=== PATIENT | female | born 1975 | race Caucasian/White ===

== ENCOUNTER → 2016-05-13 | Outpatient (REF) | payer OTHER | LOC: M LAB REF 09:58 | PROVIDERS: ATTEND Physician Assistant Medical | DX: J02.9 Acute pharyngitis, unspecified (principal) ==

== ENCOUNTER → 2016-07-10 | Outpatient (REF) | payer OTHER | LOC: M LAB REF 16:28 | PROVIDERS: ATTEND Family Medicine | DX: R79.89 Other specified abnormal findings of blood chemistry (principal) ==

== ENCOUNTER → 2016-12-04 | Outpatient (CLI) | payer OTHER ==
[2016-12-04 09:59] LABS: BASO # 0.1 K/mm3 (0.0-0.2); BASO % 0.8 % (0.0-1.0); EOS # 0.2 K/mm3 (0.0-0.50); EOS % 2.9 % (0.0-3.0); LARGE UNSTAINED CELL # 0.1 K/mm3 (0.0-0.4); LARGE UNSTAINED CELL % 1.6 % (0.0-4.0); LYMPH # 2.6 K/mm3 (1.5-4.5); MEAN CORPUSCULAR HEMOGLOBIN 29.8 pg (27.0-33.0); MEAN CORPUSCULAR HGB CONC 34.8 g/dl (32.0-36.5); MEAN CORPUSCULAR VOLUME 85.5 fl (80.0-96.0); MONO # 0.4 K/mm3 (0.0-0.8); MONO % 5.1 % (0.0-5.0); NEUTROPHILS # 5.2 K/mm3 (1.8-7.7); NEUTROPHILS % 59.6 % (36.0-66.0); PLATELET COUNT, AUTOMATED 227 k/mm3 (150-450); RED CELL DISTRIBUTION WIDTH 13.6 % (11.5-14.5); WHITE BLOOD COUNT 8.6 K/mm3 (4.0-10.0)
[2016-12-04 10:27] LABS: ALBUMIN 3.3 GM/DL (3.2-5.2); ALKALINE PHOSPHATASE 71 U/L (45-117); ALT/SGPT 48 U/L (12-78); AST/SGOT 40 U/L (15-37); BILIRUBIN,DIRECT 0.2 MG/DL (0.0-0.2); BILIRUBIN,TOTAL 0.4 MG/DL (0.2-1.0); FERRITIN 33 NG/ML (8-252); GAMMA GLUTAMYLTRANSPEPTIDASE 76 U/L (5-55); TOTAL IRON BINDING CAPACITY 454 UG/DL (250-450); TOTAL PROTEIN 7.4 GM/DL (6.4-8.2)
[2016-12-04 10:48] LABS: HEPATITIS B SURFACE ANTIBODY NEGATIVE (POSITIVE)
--- NOTE | 2016-12-04 10:56 | REP ---
RIGHT UPPER QUADRANT ULTRASOUND: Real-time sonographic evaluation of the right upper quadrant performed. The gallbladder appears somewhat contracted. No gall stones are seen. There is no gallbladder wall thickening or pericholecystic fluid. There is no intrahepatic or extrahepatic biliary dilatation, common bile duct measuring 4 mm in diameter. There appears to be somewhat increased heterogeneous echotexture suggesting some degree of fibrofatty infiltration. No definite liver or pancreatic mass is seen. The pancreas is not optimally seen due to overlying bowel gas. Right kidney demonstrates no hydronephrosis with normal size at 11.1 cm in length. IMPRESSION: No gallstones or biliary dilatation. No free fluid. There appears to be some degree of fibrofatty infiltration of the liver. Signed by Pio Shepard MD 12/04/2016 11:57 A
== END ==
LOC: M RAD 09:13 → M LAB 09:13
PROVIDERS: ATTEND Internal Medicine Gastroenterology
DX: R94.5 Abnormal results of liver function studies (principal)

== ENCOUNTER → 2017-01-06 | Outpatient (REF) | payer OTHER | LOC: M LAB REF 10:59 | PROVIDERS: ATTEND Physician Assistant Medical | DX: J02.9 Acute pharyngitis, unspecified (principal) ==

== ENCOUNTER → 2017-04-08 | Outpatient (REF) | payer OTHER | LOC: M SFHCWAGY 14:30 | DX: Z12.4 Encounter for screening for malignant neoplasm of cervix (principal) ==

== ENCOUNTER → 2017-04-27 | Outpatient (CLI) | payer OTHER | LOC: M WHC 15:51 | DX: Z12.31 Encounter for screening mammogram for malignant neoplasm of breast (principal) | CPT/HCPCS: 77067 ==

== ENCOUNTER 2017-09-20 10:33 | Day surgery (SDC) | payer OTHER ==
[2017-09-20] MEDS ORDERED: PROPOFOL 200 MG/20 ML VIAL As Ordered ×2 (10:34→11:28)
[2017-09-20] MEDS ORDERED: fentaNYL 100 MCG/2 ML INJECTION (J3010) As Ordered (10:34)
[2017-09-20] MEDS ORDERED: LIDOCAINE 2% INJ 100 MG/5 ML SYRINGE As Ordered (10:34)
[2017-09-20] MEDS ORDERED: NS 1,000 ML IV (11:00)
[2017-09-20] MEDS ORDERED: PHENYLephrine HCL 500 MCG/5 ML (100MCG/ML) SYRINGE (J2370) As Ordered (11:26)
== END 2017-09-20 12:25 | disposition home or self-care (01) ==
LOC: M OPP 10:33
DX: K92.1 Melena (principal); D12.3 Benign neoplasm of transverse colon; K62.1 Rectal polyp; D50.9 Iron deficiency anemia, unspecified; K57.30 Diverticulosis of large intestine without perforation or abscess without bleeding; K29.70 Gastritis, unspecified, without bleeding; I10 Essential (primary) hypertension; F17.210 Nicotine dependence, cigarettes, uncomplicated; Z79.899 Other long term (current) drug therapy; Z91.040 Latex allergy status; Z88.8 Allergy status to other drugs, medicaments and biological substances; Z80.3 Family history of malignant neoplasm of breast; Z80.0 Family history of malignant neoplasm of digestive organs; Z85.841 Personal history of malignant neoplasm of brain; Z80.8 Family history of malignant neoplasm of other organs or systems
CPT/HCPCS: 45385

== ENCOUNTER → 2018-06-04 | Outpatient (REF) | payer OTHER ==
[~2018-06-04] MED LIST: FLON1SPR; LEVO100T5 PO; LISI10TA4 PO; PRIL20TA2 PO; VENTAER INH; ZYRT10CA5 PO; mucinex PO
== END ==
LOC: M LAB REF 11:42
PROVIDERS: ATTEND Physician Assistant Medical
DX: J02.9 Acute pharyngitis, unspecified (principal)

== ENCOUNTER → 2018-10-11 | Outpatient (REF) | payer OTHER | LOC: M SFHCWAGY 16:17 | PROVIDERS: ATTEND Nurse Practitioner Family | DX: Z12.4 Encounter for screening for malignant neoplasm of cervix (principal) ==

== ENCOUNTER → 2018-10-11 | Outpatient (CLI) | payer OTHER ==
--- NOTE | 2018-10-11 16:23 | REPMRS ---
Patient History The patient states she had a clinical breast exam in 10/2018. Patient is nulliparous. Family history of colorectal cancer at age 50 or over in mother, colorectal cancer at age 50 or over in paternal aunt, colorectal cancer at age 50 or over in paternal grandfather, breast cancer at age 50 or over in paternal grandmother. 3D TOMOSYNTHESIS WAS PERFORMED. [facility] lifetime risk for breast cancer is 17.9%. Digital Woman Screen Mammo: October 11, 2018 - Exam #: [id number] Bilateral CC and MLO view(s) were taken. Technologist: Gwen Stearns, Technologist Prior study comparison: April 27, 2017, digital woman screen mammo performed at [facility]. February 13, 2016, digital woman screen mammo performed at [facility]. FINDINGS: There are scattered fibroglandular densities. There has been no change in the appearance of the mammogram from the prior studies. There is a mild amount of residual fibroglandular tissue which is fairly symmetric. There is no interval development of dominant mass, architectural distortion, or clustered microcalcification suggestive of malignancy. Assessment: BI-RADS/ACR category 1 mammogram. Negative Mammogram. Recommendation Routine screening mammogram in 1 year (for women over age 40). This mammogram was interpreted with the aid of an FDA-approved computer-aided dectection system. Electronically Signed By: Pio Shepard MD 10/11/18 1089
== END ==
LOC: M WHC 15:00
PROVIDERS: ATTEND Nurse Practitioner Family
DX: Z12.31 Encounter for screening mammogram for malignant neoplasm of breast (principal); Z80.0 Family history of malignant neoplasm of digestive organs

== ENCOUNTER → 2018-11-28 | Outpatient (CLI) | payer OTHER ==
--- NOTE | 2018-11-28 15:45 | REP ---
REASON: Dyspnea. COMPARISON: 09/09/2012 the latest prior. FINDINGS: The superior mediastinal structures are midline. The cardiac silhouette is unremarkable in size, shape, and position. The diaphragmatic surfaces of the lungs are regular, and the costophrenic angles are clear. The pulmonary loaiza are clear. The imaged osseous structures are intact. IMPRESSION: There is no acute cardiopulmonary disease. No significant change from the prior exam. Electronically Signed by Jose Manuel Gomez DO 11/28/2018 04:48 P
== END ==
LOC: M SMT 13:53
PROVIDERS: ATTEND Physician Assistant
DX: R06.00 Dyspnea, unspecified (principal)

== ENCOUNTER → 2018-11-30 | Outpatient (CLI) | payer OTHER ==
--- NOTE | 2018-11-30 15:57 | REPVR ---
EXAM: MR Angiogram Head Without Contrast, Arteries EXAM DATE/TIME: 11/30/2018 2:53 PM CLINICAL HISTORY: 43 years old, female; Other: Tinnitis; Additional info: Pulsatile tinnitus, RT ear order ok per meagn TECHNIQUE: Imaging protocol: MR angiogram head without contrast. Exam focused on the arteries. COMPARISON: No relevant prior studies available. FINDINGS: Right internal carotid artery: Unremarkable. Intracranial segment is patent with no significant stenosis. No aneurysm. Right anterior cerebral artery: Unremarkable. No occlusion or significant stenosis. No aneurysm. Right middle cerebral artery: Unremarkable. No occlusion or significant stenosis. No aneurysm. Right posterior cerebral artery: Unremarkable. No occlusion or significant stenosis. No aneurysm. Right vertebral artery: Unremarkable. No occlusion or significant stenosis. No aneurysm. Left internal carotid artery: Unremarkable. Intracranial segment is patent with no significant stenosis. No aneurysm. Left anterior cerebral artery: Unremarkable. No occlusion or significant stenosis. No aneurysm. Left middle cerebral artery: Unremarkable. No occlusion or significant stenosis. No aneurysm. Left posterior cerebral artery: Unremarkable. No occlusion or significant stenosis. No aneurysm. Left vertebral artery: Unremarkable. No occlusion or significant stenosis. No aneurysm. Basilar artery: Unremarkable. No occlusion or significant stenosis. No aneurysm. Sinuses: Mild ethmoid frontal sinus mucosal thickening. Near-complete polypoid opacification of the right maxillary sinus. IMPRESSION: 1. No acute pathology. 2. Additional findings, as above. Electronically signed by: Dannie Curtis On 11/30/2018 15:57:05 PM
== END ==
LOC: M RAD 14:46
PROVIDERS: ATTEND Specialist
DX: H93.A1 Pulsatile tinnitus, right ear (principal)

== ENCOUNTER → 2019-02-03 | Outpatient (REF) | payer OTHER ==
[2019-02-03 13:48] LABS: ALBUMIN 2.9 GM/DL (3.2-5.2); ALT/SGPT 56 U/L (12-78); BILIRUBIN,TOTAL 0.5 MG/DL (0.2-1.0); BLOOD UREA NITROGEN 3 MG/DL (7-18); CALCIUM LEVEL 8.3 MG/DL (8.5-10.1); CARBON DIOXIDE LEVEL 30 MEQ/L (21-32); CHLORIDE LEVEL 104 MEQ/L (98-107); CHOLESTEROL LEVEL 166 MG/DL (<200); CHOLESTEROL RISK RATIO 4.611 (<5); GLOMERULAR FILTRATION RATE > 60.0 (>58); GLUCOSE, FASTING 122 MG/DL (70-100); HDL CHOLESTEROL 36 MG/DL (>40); LDH LACTATE DEHYDROGENASE 205 U/L (84-246); LDL CHOLESTEROL 107 MG/DL (<100); NON-HDL-C 130 MG/DL; POTASSIUM SERUM 3.3 MEQ/L (3.5-5.1); SODIUM LEVEL 141 MEQ/L (136-145); TOTAL PROTEIN 6.7 GM/DL (6.4-8.2); TRIGLYCERIDES LEVEL 115 MG/DL (<150)
[2019-02-03 13:56] LABS: HEMOGLOBIN A1c 6.7 %
== END ==
LOC: M LABDRWAD 13:02
PROVIDERS: ATTEND Family Medicine
DX: R73.01 Impaired fasting glucose (principal); E03.9 Hypothyroidism, unspecified; I10 Essential (primary) hypertension

== ENCOUNTER → 2019-04-24 | Outpatient (CLI) | payer OTHER ==
--- NOTE | 2019-04-25 02:01 | REP ---
Clinical: Sciatica. Technique: AP, lateral, coned-down views of the lumbosacral spine. Findings: Focal moderate degenerative disc osteophyte complex at the L5-S1 level includes endplate sclerosis, early marginal spurring, and disc space narrowing. Mild/moderate degenerative change also identified at the L1-2 level including endplate sclerosis, marginal spurring, and minimal disc space narrowing. No acute fracture / compression injury or subluxation. Impression: Mild degenerative disc disease at L1-2. Moderate degenerative disc disease at L5-S1. Electronically Signed by Vinicius Brown MD 04/25/2019 01:53 A
== END ==
LOC: M ADAMS 14:36
PROVIDERS: ATTEND Physician Assistant
DX: M54.31 Sciatica, right side (principal); M54.32 Sciatica, left side

== ENCOUNTER → 2019-07-17 | Outpatient (CLI) | payer OTHER | LOC: M LABSMTC 12:59 | PROVIDERS: ATTEND Family Medicine | DX: Z11.59 Encounter for screening for other viral diseases (principal); Z20.828 Contact with and (suspected) exposure to other viral communicable diseases ==

== ENCOUNTER → 2020-02-02 | Outpatient (CLI) | payer OTHER ==
[2020-02-02 19:29] LABS: FOLATE 6.2 NG/ML; FREE T4 1.42 NG/DL (0.76-1.46); FREE THYROXINE INDEX 4.1 % (1.3-4.8); RHEUMATOID FACTOR QUANT < 10.0 IU/ML (<15.0); T UPTAKE 34 % (30-39); THYROID STIMULATING HORMONE 0.954 uIU/ML (0.358-3.740); TOTAL PROTEIN 6.7 GM/DL (6.4-8.2); VITAMIN B12 LEVEL 400 PG/ML
[2020-02-05 10:41] LABS: ALBUMIN 3.28 GM/DL (3.29-5.55); ALBUMIN % 48.9 % (55.8-66.1); ALPHA-1-GLOBULIN % 5.8 % (2.9-4.9); ALPHA-1-GLOBULINS 0.39 GM/DL (0.17-0.41); ALPHA-2-GLOBULINS 0.98 GM/DL (0.42-0.99); ALPHA-2-GLOBULINS % 14.7 % (7.1-11.8); BETA-1-GLOBULINS 0.57 GM/DL (0.28-0.60); BETA-1-GLOBULINS % 8.5 % (4.7-7.2); BETA-2-GLOBULINS % 6.1 % (3.2-6.5)
[2020-02-05 10:42] LABS: BETA-2-GLOBULINS 0.41 GM/DL (0.19-0.55); GAMMA GLOBULINS 1.07 GM/DL (0.65-1.58)
[2020-02-10 04:07] LABS: ANTINUCLEAR ANTIBODIES DIRECT Negative (Negative); SJOGREN'S ANTI SS-A <0.2 AI (0.0-0.9); SJOGREN'S ANTI SS-B <0.2 AI (0.0-0.9); VITAMIN B1 LEVEL WHOLE BLOOD 97.5 nmol/L (66.5-200.0); VITAMIN B6,PYRIDOXAL PHOSPHATE 2.6 ug/L (2.0-32.8); VITAMIN E(ALPHA TOCOPHEROL) 8.7 mg/L (7.0-25.1); VITAMIN E(GAMMA TOCOPHEROL) 1.2 mg/L (0.5-5.5)
== END ==
LOC: M LABDRWAD 16:06
PROVIDERS: ATTEND Psychiatry & Neurology Neurology
DX: Z01.84 Encounter for antibody response examination (principal)

== ENCOUNTER → 2020-02-14 | Outpatient (REF) | payer OTHER | LOC: M LAB REF 16:50 | PROVIDERS: ATTEND Family Medicine | DX: E83.51 Hypocalcemia (principal) ==

== ENCOUNTER 2020-04-25 20:29 | Emergency (ER) | payer OTHER ==
[~2020-04-25] VITALS: Ht 165.1 cm; Wt 96.0 kg
[~2020-04-25 20:29] MED LIST changes: -DERM1TAB2 PO; +LISI10TA22 PO; -LISI10TA4 PO; -MAGN400C PO
[2020-04-25] MEDS ORDERED: DERM1TAB2 PO (20:39)
[2020-04-25] MEDS ORDERED: MAGN400C PO (20:39)
--- OUTSIDE RECORDS SUMMARY | 2020-04-25 20:42 | CCD | Continuity of Care Document ---
Author Author Branden RUEDA FACILITY COORDINATOR Organization Unknown Address [address] [place] [address] [place] [address] Phone [phone] Care Team Providers Care Ict Development Manager Name Role Phone Dash Dia MD AUTM [phone] [employer] AUTM [phone] Problems Description No Information Available Social History Type Date Description Comments Sex Unknown Tobacco Use Start: Unknown Patient is a current cigarette smoker, smokes every day Tobacco Use Start: Unknown Current Cigarette Smoker 5-10 Ci garettes Daily Smoking Status Reviewed: 04/24/19 Current Cigarette Sm oker 5-10 Cigarettes Daily ETOH Use Occasionally consumes alcohol Tobacco Use Start: Unknown Patient is a current smoker, smo kes every day Allergies, Adverse Reactions, Alerts Active Allergies Reaction Severity Comments Date Sulfa rash 05/12/2015 Medications Active Medications SIG Qnty Indications Ordering Provide r Date Levothyroxine Sodium 100mcg Tablet s 1 by mouth every day Unknown Lisinopril 10mg Tablets 1 by mouth every day Unknown Zyrtec Allergy 10mg Capsules 1 by mouth every day Unknown Ventolin HFA 108(90Base) mcg/Act A erosol 2 puffs four times a day Unknown [address] take one tab in the morning for next month Unknown Magnesium Unknown Immunizations Description No Information Available Vital Signs Date Vital Result Comment 04/11/2020 3:08pm BP Systolic 150 mmHg BP Diastolic 90 mmHg Heart Rate 128 /min Respiratory Rate 16 /min O2 % BldC Oximetry 98 % Body Temperature 95.3 F Weight 207.00 lb Height 65 inches 5'5" BMI (Body Mass Index) 34.4 kg/m2 Pain Level 7 04/24/2019 2:11pm BP Systolic 138 mmHg BP Diastolic 90 mmHg Heart Rate 85 /min Respiratory Rate 20 /min O2 % BldC Oximetry 99 % Body Temperature 97.8 F Weight 210.00 lb Height 65.5 inches 5'5.50" BMI (Body Mass Index) 34.4 kg/m2 Pain Level 9 Results Description No Information Available Procedures Description No Information Available Medical Devices Description No Information Available Encounters Type Date Location Provider Dx Diagnosis Office Visit 04/11/2020 4:00p Main Office Vashti Rueda NP J04. 0 Acute laryngitis Z20.828 Contact w and exposure to ot h viral communicable diseases Assessments Date Code Description Provider 04/11/2020 J04.0 Acute laryngitis Vashti banerjee NP 04/11/2020 Z20.828 Contact with and (paz spected) exposure to other viral communicable diseases Vashti Rueda NP Plan of Treatment No Information Available Functional Status Description No Information Available Mental Status Description No Information Available Referrals Description No Information Available
--- OUTSIDE RECORDS SUMMARY | 2020-04-25 20:42 | CCD | Continuity of Care Document ---
Author Author Branden LUEVANO Organization Unknown Address [address] [place] [address] Phone [phone] Care Team Providers Care Load Mixer Name Role Phone Dash Dia M.D. AUTM [phone] Problems Active Problems Provider Date Paresthesia Suzie Gonzales M.D. Onset: 01/30/2020 Essential hypertension Onset: 02/01/2015 Hyperlipidemia Onset: 02/01/2015 Malaise and fatigue Onset: 02/01/2015 Histological finding Onset: 02/01/2015 Candidiasis of mouth Onset: 02/01/2015 Overweight Onset: 01/09/2010 Dysmenorrhea Onset: Gastroesophageal reflux disease Onset: 0 Tobacco dependence syndrome Onset: Allergic rhinitis Onset: Hypothyroidism Onset: Hypertensive disorder Onset: Dysfunction of eustachian tube Onset: Asthma Onset: Social History Type Date Description Comments Sex Unknown Tobacco Use Start: Unknown Patient is a current smoker, smo kes every day Allergies, Adverse Reactions, Alerts Active Allergies Reaction Severity Comments Date Sulfa Antibiotics 01/30/2020 Sulfa rash 01/30/2020 Medications Active Medications SIG Qnty Indications Ordering Provide r Date Triamcinolone Acetonide 0.1% Cream apply twice a day as directed - do not overuse, risk of atropy. Only use on individual areas of rash. 45units Dash Dia M.D. 11/09/2019 Symbicort 160-4.5mcg/Act Aerosol 2 puff twice a day 18units Dash Dia M.D. 10/30/2019 Ra Nicotine Gum 2mg Gum use as replacement for cigarettes. 90units Dash Dia M.D. 08/08/2019 Zithromax Z-Roberto 250mg Tablets take 2 tabs by mouth today, then one tab daily for 4 days 6tabs Dash Zamora M.D. 07/18/2019 Celexa 20mg Tablets 1 by mouth every day 30tabs Kindra Balderas A.N.P. 02/23/2019 Diflucan 150mg Tablets 1 by mouth may repeat in 3 days 2tabs Dash Dia M.D. 9 Singulair 10mg Tablets take one tablet by mouth at bedtime 30tabs I10 Dash Dia M.D. 9 Anusol-HC 25mg Suppository insert one suppository rectally one daily for x3 days then as needed 12units I1 0 Dash Dia M.D. 02/23/2018 Fluticasone Propionate 50mcg/Act Suspension 2 sprays each nostril daily 16unDash Miller M.D. 08/20/[address] 1 by mouth every day 90caps Dash Dia M.D. 02/01/2015 Levothyroxine Sodium 100mcg Soluti on Rec 1 by mouth every day 90unDash Miller M.D. 015 Zyrtec Allergy 10mg Tablets 1 by mouth every day 30tabs Dash Dia M.D. 02/01/2015 Ventolin HFA 108(90Base) mcg/Act A erosol 2 puffs four times a day as needed 3units Dash Dia M.D. 02/01/2015 Nystatin-Triamcinolone 683345-2.1Unit/GM-% Cream use to affected areas (corner of mouth) twice a day. 60units Dash Dia M.D. 02/01/2015 Lisinopril 10mg Tablets 1 by mouth every day 90tabs Dash Dia M.D. 11/16/2014 Metformin HCL 500mg Tablets pt takes 1 tab by mouth once a day Suzie Gonzales M.D. Immunizations Description No Information Available Vital Signs Date Vital Result Comment 01/30/2020 9:27am Respiratory Rate 12 /min Height 65.5 inches 5'5.50" Weight 210.00 lb BMI (Body Mass Index) 34.4 kg/m2 [place] Body Weight 136 lb 11/09/2019 11:35am BP Systolic 128 mmHg BP Diastolic 80 mmHg Heart Rate 70 /min Height 65.5 inches Weight 214.00 lb BMI (Body Mass Index) 35.1 kg/m2 Results Test Acquired Date Facility Test Result H/L Range Note Laboratory test finding 02/02/[address] [facility] Erythrocyte Sedimentation Rate 45 mm/hr High 0-20 Immunotyping (Immunofixation) Serum (If 02/02/[address] [facility] It Serum Interpretation SEE COMMENT Normal 1 Its Pathologist Review REV'D BY [employer] ZALDIVAR <SEE NOTE> Normal 2 Serum Protein Electrophoresis 02/02/[address] [facility] Albumin % 48.9 % Low 55.8-66.1 Irbbs-4-Lgglawja % 5.8 % High 2.9-4.9 Ohazj-1-Vsnvchvix % 14.7 % High 7.1-11.8 Fesa-2-Oxlwnizln % 8.5 % High 4.7-7.2 Diek-8-Goifugduy % 6.1 % Normal 3.2-6.5 Gamma Globulin % 16.0 % Normal 11.1-18.8 Albumin 3.28 GM/DL Low 3.29-5.55 Ewlnn-3-Hbsznsyee 0.39 GM/DL Normal 0.17-0.41 Ieegk-4-Zsmhehmsf 0.98 GM/DL Normal 0.42-0.99 Pmvm-3-Sxkayeqmo 0.57 GM/DL Normal 0.28-0.60 Ubtj-7-Byctnaonl 0.41 GM/DL Normal 0.19-0.55 Gamma Globulins 1.07 GM/DL Normal 0.65-1.58 Total Protein 6.7 GM/DL Normal 6.4-8.2 Spep Interpretation SEE COMMENT Normal 3 Spep Pathologist Review REV'D BY [employer] ZALDIVAR <SEE NOTE> Normal 4 Thyroid Profile 02/02/[address] [facility] T Uptake 34 % Normal 30-39 Thyroxine (T4) 12.0 g/dL Normal 4.5-12.0 Free Thyroxine Index 4.1 % Normal 1.3-4.8 Thyroid Stimulating Hormone 0.954 uIU/ML Normal 0.358-3.740 FT4&TSH Panel 02/02/[address] [facility] Free T4 1.42 ng/dL Normal 0.76-1.46 Vitamin B12 & Folate 02/02/[address] [facility] Vitamin B12 Level 400 pg/mL Normal 5 Folate 6.2 NG/ML Normal 6 Laboratory test finding 02/02/[address] [facility] Rheumatoid Factor Quant < 10.0 IU/mL Normal <15.0 Vitamin E Level 02/02/[address] [facility] Vitamin E(Alpha Tocopherol) 8.7 mg/L Normal 7.0-25.1 Vitamin E(Gamma Tocopherol) 1.2 mg/L Normal 0.5-5.5 7 Laboratory test finding 02/02/[address] [facility] Vitamin B1 Level Whole Blood 97.5 nmol/L Normal 66.5-200.0 8 Vitamin B6,Pyridoxal Phosphate 2.6 ug/L Normal 2.0-32.8 9 Antinuclear Antibodies 02/02/[address] [facility] Antinuclear Antibodies Direct Negative Normal Negative 10 Sjogren's Anti SS-A <0.2 AI Normal 0.0-0.9 Sjogren's Anti SS-B <0.2 AI Normal 0.0-0.9 Complete Blood Count 11/09/2019 N2N/CCD Import WBC 9.6 x10*3/UL 4.1-10.9 RBC 5.32 x10*6/UL 4.20-6.30 Hemoglobin 12.9 g/dL 12.0-18.0 Hematocrit 39.0 % 37.0-51.0 MCV 73.3 fL Low 80.0-97.0 MCH 24.3 pg Low 26.0-32.0 MCHC 33.1 g/dL 31.0-38.0 RDW 14.9 % High 11.6-13.7 PLT 295 x10*3/UL 140-440 MPV 8.2 FL 7.8-11.0 Lymph % 29.5 % 10.0-58.5 Mid % 6.7 % 1.7-9.3 Neut % 63.8 % 37.0-92.0 Lymph # 2.8 x10*3/UL 0.6-4.1 Mid # 0.7 x10*3/UL High 0.1-0.6 Neut # 6.1 x10*3/UL 2.0-7.8 Lab Results 11/09/2019 N2N/CCD Import Hba1c 6.5 g/dL High 4.8-5.6 11 Est Avg Glucose 140 mg/dL High 60-110 Comprehensive Chem Profile 11/09/2019 N2N/CCD Impor t Glucose 154 mg/dL High 74-99 12 BUN 5 mg/dL Low 7-18 Creatinine 0.7 mg/dL 0.6-1.3 Sodium 142 mEq/L 136-145 Potassium 3.8 mEq/L 3.5-5.1 Chloride 104 mEq/L 98-107 Carbon Dioxide 31 mEq/L 21-32 Calcium 8.1 mg/dL Low 8.5-10.1 13 Alk. Phosphatase 70 mg/dL 46-116 Total Bilirubin 0.3 mg/dL 0.2-1.0 Ast (Sgot) 78 U/L High 15-37 14 Alt (SGPT) 77 U/L 12-78 Albumin 2.9 g/dL Low 3.4-5.0 15 Total Protein 7.2 g/dL 6.4-8.2 A/G Ratio 0.67 CALC Low 1.00-1.90 GFR >= 60 mL/min GFR >= 60 mL/min 16 Lipid Profile 11/09/2019 N2N/CCD Import Cholesterol 202 mg/dL High 131-200 Triglycerides 95 mg/dL 30-150 HDL Cholesterol 42 mg/dL 35-60 LDL (Calculated) 141 CALC 50-159 Microalbumin/Creatinine Urine 11/09/2019 N2N/CCD Im port Microalbumin Urine 5.9 mg/L 1.3-20.0 Urine Creatinine 50.5 mg/dL 30.0-125.0 Microalb/Creat Ratio 11.7 ug/mg 0.0-30.0 1 NO MONOCLONAL BANDS NOTED. 2 REV'D BY [employer] OTERO 3 NO M-SPIKE(S)NOTED. 4 REV'D BY [employer] OTERO 5 VITAMIN B12 NORMAL RANGE NORMAL 247 - 911 PG/ML INDETERMINATE 211 - 246 PG/ML DEFICIENT LESS THAN 211 PG/ML 6 FOLATE NORMAL RANGE NORMAL GREATER THAN 5.4 NG/ML INDETERMINATE 3.4-5.4 NG/ML DEFICIENT LESS THAN 3.4 NG/ML 7 Reference intervals for alph a and gamma-tocopherol determined from National Health and Nutrition Examination Survey, 5067-3874. Individuals with alpha-tocopherol levels less than 5.0 mg/L are considered vitamin E deficient. 8 Specimen Comment: Test(s) 07 0141-Vitamin E(Alpha Tocopherol); 211657- Specimen Comment: Vitamin E(Gamma Tocopherol); 975161-Lrubmxo B6; 599048- Specimen Comment: Vit. B1, Whole Blood Specimen Comment: was developed and its performance characteristics Specimen Comment: determined by [facility]. It has not been cleared or approved Specimen Comment: by the Food and Drug Administration. 9 Specimen Comment: Test(s) 07 0141-Vitamin E(Alpha Tocopherol); 575474- Specimen Comment: Vitamin E(Gamma Tocopherol); 440621-Pahjbzh B6; 453445- Specimen Comment: Vit. B1, Whole Blood Specimen Comment: was developed and its performance characteristics Specimen Comment: determined by [facility]. It has not been cleared or approved Specimen Comment: by the Food and Drug Administration. 10 Performed at: - [facility] [id number] Front Services Agent: Christy Hoover MD, Phone: [phone] Performed at: - [facility] [id number] Front Services Agent: Bella Roca MD, Phone: [phone] Lab Result Notes: Pre-Diabetes 5.7 - 6.4 % Diabetes = or > 6.5% 12 100-125 mg/dL PRE-DIABET ES/FASTING >126 mg/dL DIABETES/FASTING 13 NOTE: RESULT VERIFIED. 14 NOTE: RESULT VERIFIED. 15 NOTE: RESULT VERIFIED. 16 CHRONIC KIDNEY DISEASE STAGI NG PER NKF STAGE I & II GFR >= 60 NORMAL TO MILDLY DECREASED STAGE III GFR 30-59 MODERATELY DECREASED STAGE IV GFR 15-29 SEVERELY DECREASED STAGE V GFR <15 VERY LITTLE GFR LEFT ESRD GFR <15 ON SOCIAL MEDIA DIRECTOR Procedures Date Code Description Status 02/24/2020 58301 MRI Spine Lumbar W/O Contrast Co mpleted 02/24/2020 49983 MRI Spine Thoracic W/O Contrast Completed 02/24/2020 95788 MRI Spine Thoracic W/O Contrast Completed 02/24/2020 55643 MRI Spine Cervical W/O Contrast Completed 02/24/2020 27867 MRI Spine Cervical W/O Contrast Completed 02/24/2020 23425 MRI Brain W/O Contrast Completed 02/24/2020 33152 MRI Brain W/O Contrast Completed 02/14/2020 08793 Nerve Conduction 13+ Studies Com pleted 02/14/2020 46471 Needle Electromyography Complete , Five Or More Muscles Studied Completed 02/14/2020 55901 Needle Electromyography Complete , Five Or More Muscles Studied Completed 02/07/2020 25010 Artery Study Extremity Mult Leve ls Bilateral Completed 02/07/2020 82944 Artery Study Extremity Mult Leve ls Bilateral Completed 02/07/2020 29322 Artery Study Extremity Mult Leve ls Bilateral Completed 02/07/2020 93526 Artery Study Extremity Mult Leve ls Bilateral Completed 02/07/2020 70066 Needle Electromyography Complete , Five Or More Muscles Studied Completed 02/07/2020 05117 Needle Electromyography Complete , Five Or More Muscles Studied Completed 02/07/2020 35952 Nerve Conduction 13+ Studies Com pleted 02/07/2020 11571 Test Autonomic Nervous System, C ardiovagal Innervation Completed 02/07/2020 14876 Test Autonomic Nervous System, C ardiovagal Innervation Completed 02/07/2020 83292 Sympathetic Skin Responses Compl eted 02/07/2020 83813 Sympathetic Skin Responses Compl eted Medical Devices Description No Information Available Encounters Type Date Location Provider Dx Diagnosis Office Visit 01/30/2020 9:00a Main office - [place] Suzie stern M.D. R20.2 Paresthesia of skin Assessments Date Code Description Provider 02/24/2020 G37.9 Demyelinating disease of central nervous system, unspecified Qing Dilia, M.DSommer 02/24/2020 G37.9 Demyelinating disease of central nervous system, unspecified MRI 02/24/2020 R20.2 Paresthesia of skin Qing Dilia, MSommerDSommer 02/24/2020 R20.2 Paresthesia of skin MRI 02/14/2020 M79.605 Pain in left leg Suzie Gonzales M.D. 02/14/2020 M79.604 Pain in right leg Suzie davila M.D. 02/14/2020 M54.5 Low back pain Suzie Gonzales M.D. 02/14/2020 R20.2 Paresthesia of skin Suzie stern M.D. 02/07/2020 E11.40 Type 2 diabetes nora itus with diabetic neuropathy, unspecified Suzie Gonzales M.D. 02/07/2020 E11.40 Type 2 diabetes nora itus with diabetic neuropathy, unspecified Ans/VS 02/07/2020 G62.9 Polyneuropathy, unspecified Katty Gonzales M.D. 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 02/07/2020 M54.2 Cervicalgia Suzie Gonzales M.D. 02/07/2020 G56.01 Carpal tunnel syndrome, right up per limb Suzie Gonzales M.D. 02/07/2020 M79.605 Pain in left leg Suzie Gonzales M.D. 02/07/2020 M79.604 Pain in right leg Suzie davila M.D. 02/07/2020 M79.602 Pain in left arm Suize Gonzales M.D. 02/07/2020 M79.601 Pain in right arm Suzie davila M.D. 01/30/2020 R20.2 Paresthesia of skin Suzie stern M.D. Plan of Treatment Future Appointment(s):* 05/06/2020 1:30 pm - Suzie Gonzales M.D. at Main office - [place] Functional Status Description No Information Available Mental Status Description No Information Available Referrals Description No Information Available
--- OUTSIDE RECORDS SUMMARY | 2020-04-25 20:42 | CCD | Continuity of Care Document ---
Author Author Branden RUEDA SUGAR CANE PLANTER Organization Unknown Address [address] [place] [address] [place] [address] Phone [phone] Care Team Providers Care Conveyancer Name Role Phone Dash Dia MD AUTM [phone] [employer] AUTM [phone] Problems Description No Information Available Social History [...] Medical Devices Description No Information Available Encounters Description No Information Available Assessments Date Code Description Provider 04/11/2020 J04.0 Acute laryngitis Vashti banerjee NP 04/11/2020 Z20.828 Contact with and (paz spected) exposure to other viral communicable diseases Vashti Rueda NP Plan of Treatment 04/11/2020 - Vashti Rueda NP* J04.0 Acute laryngitis* Comments:* supportive carewarm fluidsf/u PRN or with PCPpatient v/u & agrees to plan * Z20.828 Contact with and (suspected) exposure to other viral communicable diseases* Comments:* tested for COVID-19 today via [facility] & Influenza A/B, all results were reported as negativelikely other viral etiology. infectious course & use of proper protective equipment, adequate handwashing, wearing a mask & keeping 6+ feet distance from others reviewed with patient. advised supportive care, rest/time/fluidsf/u PRNpatient v/u & agrees to plan Functional Status Description No Information Available Mental Status Description No Information Available Referrals Description No Information Available
--- OUTSIDE RECORDS SUMMARY | 2020-04-25 20:42 | CCD | Continuity of Care Document ---
Author Author Branden ENGLISH M.D. Organization Unknown Address [address] [place] [address] Phone [phone] Care Team Providers Care Radiographer Cardiac Catheterization Name Role Phone Dash Dia M.D. AUTM [phone] Problems Active Problems Provider Date Paresthesia Suzie English M.D. Onset: 01/30/2020 Essential hypertension Onset: 02/01/2015 [...] 50mcg/Act Suspension 2 sprays each nostril daily 16units Dash Dia M.D. 08/20/[address] 1 [...] needed 3units Dash Dia M.D. 02/01/2015 Nystatin-Triamcinolone 942569-6.1Unit/GM-% Cream use to affected areas (corner of mouth) twice a day. 60units Dash Dia M.D. 02/01/2015 Lisinopril 10mg Tablets 1 by mouth every day 90taDash Holden M.D. 11/16/2014 Metformin HCL 500mg Tablets pt takes 1 tab by mouth once a day Suzie English M.D. Immunizations Description No Information Available Vital Signs Date Vital Result Comment 01/30/2020 9:27am Respiratory Rate 12 /min Height 65.5 inches 5'5.50" Weight 210.00 lb BMI (Body Mass Index) 34.4 kg/m2 [place] Body Weight 136 lb 11/09/2019 11:35am BP Systolic 128 mmHg BP Diastolic 80 mmHg Heart Rate 70 /min Height 65.5 inches Weight 214.00 lb BMI (Body Mass Index) 35.1 kg/m2 Results Test Acquired Date Facility Test Result H/L Range Note Laboratory test finding 02/02/2020 [facility] Erythrocyte Sedimentation Rate 45 mm/hr High 0-20 Immunotyping (Immunofixation) Serum (If 02/02/2020 [facility] It Serum Interpretation SEE COMMENT Normal 1 Its Pathologist Review REV'D BY Flaco ZALDIVAR <SEE NOTE> Normal 2 Serum Protein Electrophoresis 02/02/2020 [facility] Albumin % 48.9 % Low 55.8-66.1 Tahpd-6-Khtysmbv % 5.8 % High 2.9-4.9 Fvdxr-9-Vsyxiycod % 14.7 % High 7.1-11.8 Qjvr-7-Mbjllljct % 8.5 % High 4.7-7.2 Iolb-1-Iltryhhtd % 6.1 % Normal 3.2-6.5 Gamma Globulin % 16.0 % Normal 11.1-18.8 Albumin 3.28 GM/DL Low 3.29-5.55 Fcyqe-3-Oybkzpogz 0.39 GM/DL Normal 0.17-0.41 Falyz-8-Piohskstx 0.98 GM/DL Normal 0.42-0.99 Ypyn-3-Dcvqywwpy 0.57 GM/DL Normal 0.28-0.60 Scjk-4-Jjzqkeglf 0.41 GM/DL Normal 0.19-0.55 Gamma Globulins 1.07 GM/DL Normal 0.65-1.58 Total Protein 6.7 GM/DL Normal 6.4-8.2 Spep Interpretation SEE COMMENT Normal 3 Spep Pathologist Review REV'D BY Flaco ZALDIVAR <SEE NOTE> Normal 4 Thyroid Profile 02/02/2020 [facility] T Uptake 34 % Normal 30-39 Thyroxine (T4) 12.0 g/dL Normal 4.5-12.0 Free Thyroxine Index 4.1 % Normal 1.3-4.8 Thyroid Stimulating Hormone 0.954 uIU/ML Normal 0.358-3.740 FT4&TSH Panel 02/02/2020 [facility] Free T4 1.42 ng/dL Normal 0.76-1.46 Vitamin B12 & Folate 02/02/2020 [facility] Vitamin B12 Level 400 pg/mL Normal 5 Folate 6.2 NG/ML Normal 6 Laboratory test finding 02/02/2020 [facility] Rheumatoid Factor Quant < 10.0 IU/mL Normal <15.0 Vitamin E Level 02/02/2020 [facility] Vitamin E(Alpha Tocopherol) 8.7 mg/L Normal 7.0-25.1 Vitamin E(Gamma Tocopherol) 1.2 mg/L Normal 0.5-5.5 7 Laboratory test finding 02/02/2020 [facility] Vitamin B1 Level Whole Blood 97.5 nmol/L Normal 66.5-200.0 8 Vitamin B6,Pyridoxal Phosphate 2.6 ug/L Normal 2.0-32.8 9 Antinuclear Antibodies 02/02/2020 [facility] Antinuclear Antibodies Direct Negative Normal Negative 10 [...] from National Health and Nutrition Examination Survey, 1248-1911. Individuals with alpha-tocopherol levels less than 5.0 mg/L are considered vitamin E deficient. 8 Specimen Comment: Test(s) 07 0141-Vitamin E(Alpha Tocopherol); 807809- Specimen Comment: Vitamin E(Gamma Tocopherol); 519996-Aqzoczi B6; 681682- Specimen Comment: Vit. B1, Whole Blood Specimen Comment: was developed and its performance characteristics Specimen Comment: determined by [facility]. It has not been cleared or approved Specimen Comment: by the Food and Drug Administration. 9 Specimen Comment: Test(s) 07 0141-Vitamin E(Alpha Tocopherol); 543524- Specimen Comment: Vitamin E(Gamma Tocopherol); 345834-Pmwuqcd B6; 589194- Specimen Comment: Vit. B1, Whole Blood Specimen Comment: was developed and its performance characteristics Specimen Comment: determined by [facility]. It has not been cleared or approved Specimen Comment: by the Food and Drug Administration. 10 Performed at: - [facility] [id number] Migration Agent: Christy Hoover MD, Phone: [phone] Performed at: [facility] [id number] Migration Agent: Bella Roca MD, Phone: [phone] Lab Result Notes: Pre-Diabetes 5.7 - [...] LITTLE GFR LEFT ESRD GFR <15 ON GLOBAL RISK MANAGEMENT DIRECTOR Procedures Date Code Description Status 02/24/2020 71311 MRI Spine Lumbar W/O Contrast Co mpleted 02/24/2020 39491 MRI Spine Thoracic W/O Contrast Completed 02/24/2020 13471 MRI Spine Thoracic W/O Contrast Completed 02/24/2020 76359 MRI Spine Cervical W/O Contrast Completed 02/24/2020 72376 MRI Spine Cervical W/O Contrast Completed 02/24/2020 20645 MRI Brain W/O Contrast Completed 02/24/2020 89753 MRI Brain W/O Contrast Completed 02/14/2020 04445 Nerve Conduction 13+ Studies Com pleted 02/14/2020 85081 Needle Electromyography Complete , Five Or More Muscles Studied Completed 02/14/2020 93413 Needle Electromyography Complete , Five Or More Muscles Studied Completed 02/07/2020 73391 Artery Study Extremity Mult Leve ls Bilateral Completed 02/07/2020 65468 Artery Study Extremity Mult Leve ls Bilateral Completed 02/07/2020 53524 Artery Study Extremity Mult Leve ls Bilateral Completed 02/07/2020 19997 Artery Study Extremity Mult Leve ls Bilateral Completed 02/07/2020 73713 Needle Electromyography Complete , Five Or More Muscles Studied Completed 02/07/2020 10906 Needle Electromyography Complete , Five Or More Muscles Studied Completed 02/07/2020 02495 Nerve Conduction 13+ Studies Com pleted 02/07/2020 47114 Test Autonomic Nervous System, C ardiovagal Innervation Completed 02/07/2020 53191 Test Autonomic Nervous System, C ardiovagal Innervation Completed 02/07/2020 36236 Sympathetic Skin Responses Compl eted 02/07/2020 58825 Sympathetic Skin Responses Compl eted Medical Devices Description No Information Available Encounters Type Date Location Provider Dx Diagnosis Office Visit 01/30/2020 9:00a Main office - [place] Suzie stern M.D. R20.2 Paresthesia of skin Assessments Date Code Description Provider 02/24/2020 G37.9 Demyelinating disease of central nervous system, unspecified Qing Dilia, M.DSommer 02/24/2020 G37.9 Demyelinating disease of central nervous system, unspecified MRI 02/24/2020 R20.2 Paresthesia of skin Qing DiliaKwan hanleyDSommer 02/24/2020 R20.2 Paresthesia of skin MRI 02/14/2020 M79.605 Pain in left leg Suzie English M.D. 02/14/2020 M79.604 Pain in right leg Suzie davila M.D. 02/14/2020 M54.5 Low back pain Suzie English M.D. 02/14/2020 R20.2 Paresthesia of skin Suzie stern M.D. 02/07/2020 E11.40 Type 2 diabetes nora itus with diabetic neuropathy, unspecified Suzie English M.D. 02/07/2020 E11.40 Type 2 diabetes nora itus with diabetic neuropathy, unspecified Ans/VS 02/07/2020 G62.9 Polyneuropathy, unspecified Katty English M.D. 02/07/2020 G62.9 Polyneuropathy, unspecified Ans/ VS 02/07/2020 E11.59 Type 2 diabetes mellitus with ot her circulatory complications Suzie English M.D. 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 02/07/2020 M54.2 Cervicalgia Suzie English M.D. 02/07/2020 G56.01 Carpal tunnel syndrome, right up per limb Suzie English M.D. 02/07/2020 M79.605 Pain in left leg Suzie English M.D. 02/07/2020 M79.604 Pain in right leg Suzie davila M.D. 02/07/2020 M79.602 Pain in left arm Suzie English M.D. 02/07/2020 M79.601 Pain in right arm Suzie davila M.D. 01/30/2020 R20.2 Paresthesia of skin Suzie stern M.D. Plan of Treatment Future Appointment(s):* 05/06/2020 1:30 pm - Suzie English M.D. at Main office - [place] Functional Status Description No Information Available Mental Status Description No Information Available Referrals Description No Information Available
--- OUTSIDE RECORDS SUMMARY | 2020-04-25 20:42 | CCD | Continuity of Care Document ---
Author Author Branden DIA M.D. Organization Unknown Address [address] [facility] [address] [place] [address] Phone [phone] Care Team Providers Care Bar And Filler Assembler Name Role Phone Dash Dia MD [facility] [phone] Problems Active Problems Provider Date Overweight Onset: 01/09/2010 Dysmenorrhea Onset: Gastroesophageal reflux disease Onset: 0 Tobacco dependence syndrome Onset: Allergic rhinitis Onset: Hypothyroidism Onset: Hypertensive disorder Onset: Dysfunction of eustachian tube Onset: Asthma Onset: Essential hypertension Dash Dia M.D. Onset: 5 Hyperlipidemia Dash Dia M.D. Onset: 02/01/2015 Malaise and fatigue Dash Dia M.D. Onset: 02/01/2015 Histological finding Dash Dia M.D. Onset: 02/01/2015 Candidiasis of mouth Dash Dia M.D. Onset: 02/01/2015 Tobacco use Dash Dia M.D. Onset: 02/01/2015 Social History Type Date Description Comments Sex Unknown ETOH Use Occasionally consumes alcohol we ekends Tobacco Use Start: Unknown Patient is a current smoker, smo kes every day started at the age of 18, currently smokes 1 PPD Allergies, Adverse Reactions, Alerts Active Allergies Reaction Severity Comments Date Sulfa rash 02/01/2015 Medications Active Medications SIG Qnty Indications Ordering Provide r Date Drisdol 1.25mg (66233 Ut) Capsules 1 tab weekly 12caps Dash Dia M.D. 02/14/2020 Slow-Mag 71.5-119mg Tablets DR take 2 tablets by mouth twice a day 120tabs Tracy Duenas 02/14/2020 Triamcinolone Acetonide 0.1% Cream apply twice a day as directed - do not overuse, risk of atropy. Only use on individual areas of rash. 45gm Dash Dia M.D. 11/09/2019 Symbicort 160-4.5mcg/Act Aerosol 2 puff twice a day 18gm Dash Dia M.D. 10/30/2019 Ra Nicotine Gum 2mg Gum use as replacement for cigarettes. 90units Dash Dia M.D. 08/08/2019 Metformin HCL 500mg Tablets take one tablet by mouth each morning 90tabs Tracy Duenas 08/08/2019 Zithromax Z-Roberto 250mg Tablets take 2 tabs by mouth today, then one tab daily for 4 days 6tabs Jeancarlos Dia M.D. 07/18/2019 Diflucan 150mg Tablets 1 by mouth may repeat in 3 days 2tabs Dash Dia M.D. 02/03/2019 Singulair 10mg Tablets take one tablet by mouth at bedtime 30tabs I10 Dash Dia M.D. 08/03/2018 Anusol-HC 25mg Suppository insert one suppository rectally one daily for x3 days then as needed 12units I1 0 Dash Dia M.D. 02/23/2018 Fluticasone Propionate 50mcg/Act Suspension 2 sprays each nostril daily 16units Dash angulo M.D. 08/20/[address] 1 by mouth every day 90caps Dash Dia M.D. 02/01/2015 Levothyroxine Sodium 100mcg Soluti on Rec 1 by mouth every day 90unleora Dia M.D. 02/02/20 15 Zyrtec Allergy 10mg Tablets 1 by mouth every day 30tabs Dash Dia M.D. 02/01/2015 Mucinex Tablets 1 by mouth twice a day as needed congestion Dash Dia M.D. 5 Ventolin HFA 108(90Base) mcg/Act A erosol 2 puffs four times a day as needed 3units Dash Dia M.D. 02/01/2015 Multivitamins Capsules 1 by mouth every day 30caps Dash Dia M.D. 02/01/2015 Nystatin-Triamcinolone 055191-7.1Unit/GM-% Cream use to affected areas (corner of mouth) twice a day. 60Gram Dash Dia M.D. 02/01/2015 Lisinopril 10mg Tablets 1 by mouth every day 90tabs Dash Dai M.D. 11/16/2014 History Medications Prednisone 20mg Tablets 3 tabs x 3 days, then 2 tabs x3 days then 1 tab x 3 days then 1/2 tab x 4 days. 20tachristopher Dia M.D. 11/09/2019 - 01/12/2020 Administration Of Flu Vaccine Inj ection Unknown Immunizations CPT Code Status Date Vaccine Lot # U-Flu Given 01/29/2018 Influenza,Unspecified Q2037 Given 02/01/2015 Fluvirin Virus Vaccine 31730 01 34615 Given 01/11/2014 Influenza Virus Vaccine 77309 Given 01/09/2013 Influenza Virus Vaccine 32157 Given 01/09/2013 Influenza Virus Vaccine 24913 Given 02/02/2012 Influenza Virus Vaccine 85776 Given 01/16/2009 Influenza Virus Vaccine Vital Signs Date Vital Result Comment 02/14/2020 1:07pm BP Systolic 126 mmHg BP Diastolic 80 mmHg Heart Rate 70 /min Height 65.5 inches 5'5.50" Weight 211.25 lb BMI (Body Mass Index) 34.6 kg/m2 11/09/2019 11:35am BP Systolic 128 mmHg BP Diastolic 80 mmHg Heart Rate 70 /min Height 65.5 inches 5'5.50" Weight 214.00 lb BMI (Body Mass Index) 35.1 kg/m2 Results Test Acquired Date Facility Test Result H/L Range Note A1c 02/14/2020 [facility] Chemical Dependency Attendant: [place] [address] [phone] Hba1c 6.2 % High <5.7 1 Est Avg Glucose 131 mg/dL High 60 - 110 Comprehensive Chem Profile 02/14/2020 [facility] Chemical Dependency Attendant: Dr Cruzito Moralez [place], [place] [id number] [phone] Glucose 133 mg/dL High 74 - 99 2 BUN 5 mg/dL Low 7 - 18 Creatinine 0.7 mg/dL 0.6 - 1.3 Sodium 142 mEq/L 136 - 145 Potassium 3.5 mEq/L 3.5 - 5.1 Chloride 102 mEq/L 98 - 107 Carbon Dioxide 28 mEq/L 21 - 32 Calcium 7.6 mg/dL Low 8.5 - 10.1 3 Alk. Phosphatase 67 mg/dL 46 - 116 Total Bilirubin 0.4 mg/dL 0.2 - 1.0 Ast (Sgot) 78 U/L High 15 - 37 Alt (SGPT) 66 U/L 12 - 78 Albumin 3.2 g/dL Low 3.4 - 5.0 Total Protein 7.2 g/dL 6.4 - 8.2 A/G Ratio 0.80 CALC Low 1.00 - 1.90 GFR >= 60 mL/min >60 GFR >= 60 mL/min >60 4 Laboratory test finding 02/14/2020 [facility] [address] [place], [place] [id number] [phone] PTH Intact 24.5 pg/mL Normal 18.5-88.0 Complete Blood Count 02/14/2020 [facility] Chemical Dependency Attendant: [place] [address] [phone] WBC 9.3 x10*3/UL 4.1 - 10.9 RBC 5.02 x10*6/UL 4.20 - 6.30 Hemoglobin 12.3 g/dL 12.0 - 18.0 Hematocrit 36.8 % Low 37.0 - 51.0 MCV 73.3 fL Low 80.0 - 97.0 MCH 24.6 pg Low 26.0 - 32.0 MCHC 33.6 g/dL 31.0 - 38.0 RDW 14.9 % High 11.6 - 13.7 PLT 297 x10*3/UL 140 - 440 MPV 9.5 FL 7.8 - 11.0 Lymph % 26.7 % 10.0 - 58.5 Mid % 5.8 % 1.7 - 9.3 Neut % 67.5 % 37.0 - 92.0 Lymph # 2.5 x10*3/UL 0.6 - 4.1 Mid # 0.5 x10*3/UL 0.1 - 0.6 Neut # 6.3 x10*3/UL 2.0 - 7.8 Laboratory test finding 02/14/2020 [facility], Chemical Dependency Attendant: [place] [address] [phone] Magnesium 0.5 mg/dL Critical low 1.8 - 2.4 5 Laboratory test finding 02/14/2020 [facility] Chemical Dependency Attendant: [place] [address] [phone] Vitamin D 25-Hydroxy 15.4 Low 24.0 - 80.0 6 Complete Blood Count 11/09/2019 [facility] Chemical Dependency Attendant: [place] [address] [phone] WBC 9.6 x10*3/UL 4.1 - 10.9 RBC 5.32 x10*6/UL 4.20 - 6.30 Hemoglobin 12.9 g/dL 12.0 - 18.0 Hematocrit 39.0 % 37.0 - 51.0 MCV 73.3 fL Low 80.0 - 97.0 MCH 24.3 pg Low 26.0 - 32.0 MCHC 33.1 g/dL 31.0 - 38.0 RDW 14.9 % High 11.6 - 13.7 PLT 295 x10*3/UL 140 - 440 MPV 8.2 FL 7.8 - 11.0 Lymph % 29.5 % 10.0 - 58.5 Mid % 6.7 % 1.7 - 9.3 Neut % 63.8 % 37.0 - 92.0 Lymph # 2.8 x10*3/UL 0.6 - 4.1 Mid # 0.7 x10*3/UL High 0.1 - 0.6 Neut # 6.1 x10*3/UL 2.0 - 7.8 A1c 11/09/2019 [facility] Chemical Dependency Attendant: Dr Cruzito Moralez [place] [id number] [phone] Hba1c 6.5 g/dL High 4.8 - 5.6 7 Est Avg Glucose 140 mg/dL High 60 - 110 Comprehensive Chem Profile 11/09/2019 [facility] Chemical Dependency Attendant: Dr Cruzito Moralez [place] [id number] [phone] Glucose 154 mg/dL High 74 - 99 8 BUN 5 mg/dL Low 7 - 18 Creatinine 0.7 mg/dL 0.6 - 1.3 Sodium 142 mEq/L 136 - 145 Potassium 3.8 mEq/L 3.5 - 5.1 Chloride 104 mEq/L 98 - 107 Carbon Dioxide 31 mEq/L 21 - 32 Calcium 8.1 mg/dL Low 8.5 - 10.1 9 Alk. Phosphatase 70 mg/dL 46 - 116 Total Bilirubin 0.3 mg/dL 0.2 - 1.0 Ast (Sgot) 78 U/L High 15 - 37 10 Alt (SGPT) 77 U/L 12 - 78 Albumin 2.9 g/dL Low 3.4 - 5.0 11 Total Protein 7.2 g/dL 6.4 - 8.2 A/G Ratio 0.67 CALC Low 1.00 - 1.90 GFR >= 60 mL/min >60 GFR >= 60 mL/min >60 12 Lipid Profile 11/09/2019 [facility] , Chemical Dependency Attendant: Dr Cruzito Moralez [place] [id number] [phone] Cholesterol 202 mg/dL High 131 - 200 Triglycerides 95 mg/dL 30 - 150 HDL Cholesterol 42 mg/dL 35 - 60 LDL (Calculated) 141 CALC 50 - 159 Microalbumin/Creatinine Urine 11/09/2019 [facility], Chemical Dependency Attendant: [place] [address] [phone] Microalbumin Urine 5.9 mg/L 1.3 - 20.0 Urine Creatinine 50.5 mg/dL 30.0 - 125.0 Microalb/Creat Ratio 11.7 ug/mg 0.0 - 30.0 1 Lab Result Notes: Pre-Diabetes 5.7 - 6.4 % Diabetes = or > 6.5% 2 100-125 mg/dL PRE-DIABET ES/FASTING >126 mg/dL DIABETES/FASTING 3 NOTE: CALCIUM,AST,ALBUMIN VERIFIED 4 CHRONIC KIDNEY DISEASE STAGI NG PER NKF STAGE I & II GFR >= 60 NORMAL TO MILDLY DECREASED STAGE III GFR 30-59 MODERATELY DECREASED STAGE IV GFR 15-29 SEVERELY DECREASED STAGE V GFR <15 VERY LITTLE GFR LEFT ESRD GFR <15 ON LOT WORKER 5 CRITICAL: DR DIA NOTIFIED NOTE: RESULT VERIFIED. 6 This test was performed [employer] Vitamin D immunoassay kit. Values obtained with different assay methods should not be used interchangeably. 7 Lab Result Notes: Pre-Diabetes 5.7 - 6.4 % Diabetes = or > 6.5% 8 100-125 mg/dL PRE-DIABET ES/FASTING >126 mg/dL DIABETES/FASTING 9 NOTE: RESULT VERIFIED. 10 NOTE: RESULT VERIFIED. 11 NOTE: RESULT VERIFIED. 12 CHRONIC KIDNEY DISEASE STAGI NG PER NKF STAGE I & II GFR >= 60 NORMAL TO MILDLY DECREASED STAGE III GFR 30-59 MODERATELY DECREASED STAGE IV GFR 15-29 SEVERELY DECREASED STAGE V GFR <15 VERY LITTLE GFR LEFT ESRD GFR <15 ON LOT WORKER Procedures Date Code Description Status 09/20/2017 [id number] Colonoscopy Completed Medical Devices Description No Information Available Encounters Type Date Location Provider Dx Diagnosis Office Visit 02/14/2020 1:00p [facility] Dash Dia M.D. E83.51 Hypocalcemia E11.9 Type 2 diabetes mellitus wit hout complications K76.0 Fatty (change of) liver, not elsewhere classified E03.9 Hypothyroidism, unspecified R25.2 Cramp and spasm J45.998 Other asthma K21.9 Gastro-esophageal reflux dis ease without esophagitis R87.619 Unsp abnormal cytolog findin gs in specmn from cervix uteri E78.5 Hyperlipidemia, unspecified I10 Essential (primary) hyperten gladis Assessments Date Code Description Provider 02/14/2020 E83.51 Hypocalcemia Dash Dia M.D. 02/14/2020 E11.9 Type 2 diabetes mellitus without complications Dash Dia M.D. 02/14/2020 K76.0 Fatty (change of) liver, not els ewhere classified Dash Dia M.D. 02/14/2020 E03.9 Hypothyroidism, unspecified Araceli Dia M.D. 02/14/2020 R25.2 Cramp and spasm Dash Dia M.D. 02/14/2020 J45.998 Other asthma Dash Dia M.D. 02/14/2020 K21.9 Gastro-esophageal reflux disease without esophagitis Dash Dia M.D. 02/14/2020 R87.619 Unspecified abnormal cytological findings in specimens from cervix uteri Dash Dia M.D. 02/14/2020 E78.5 Hyperlipidemia, unspecified Araceli Dia M.D. 02/14/2020 I10 Essential (primary) hypertension Dash Dia M.D. 11/09/2019 I10 Essential (primary) hypertension Dash Dia M.D. 11/09/2019 E11.65 Type 2 diabetes mellitus with hy perglycemia Dash Dia M.D. 11/09/2019 J45.998 Other asthma Dash Dia M.D. 11/09/2019 J30.9 Allergic rhinitis, unspecified Tawny Dia M.D. 11/09/2019 F17.210 Nicotine dependence, cigarettes, uncomplicated Dash Dia M.D. 11/09/2019 E03.9 Hypothyroidism, unspecified Araceli Dia M.D. 11/09/2019 K76.0 Fatty (change of) liver, not els ewhere classified Dash Dia M.D. 11/09/2019 R20.8 Other disturbances of skin sensa tion Dash Dia M.D. Plan of Treatment Future Appointment(s):* 07/01/2020 1:30 pm - Dash Dia M.D. at [facility] 02/14/2020 - Dash Dia M.D.* E83.51 Hypocalcemia * E11.9 Type 2 diabetes mellitus without complications * K76.0 Fatty (change of) liver, not elsewhere classified * E03.9 Hypothyroidism, unspecified * R25.2 Cramp and spasm * J45.998 Other asthma * K21.9 Gastro-esophageal reflux disease without esophagitis * R87.619 Unsp abnormal cytolog findings in specmn from cervix uteri * E78.5 Hyperlipidemia, unspecified * I10 Essential (primary) hypertension * * Comments:* 1. Hypocalcemia: Check PTH.2. Type 2 diabetes mellitus without complications: Negative microalbumin. Continue current regimen, will monitor. 3. Fatty (change of) liver: Albumin low. Follows with Dr. Staton.4. Hypothyroidism: Await labs. We will monitor.5. Cramp and spasm: Await labs. Could be due to low magnesium level.6. Asthma: Stable, uses inhaler.7. GERD: Uses omeprazole. We will monitor.8. Unspecified abnormal cytological findings in specimens from cervix uteri: She will follow at [facility].9. Hyperlipidemia: Await labs.Ongoing cares: I am going to see her again in 4 months with labs are to be determined based on those done today. If she has new problems or issues sooner she will let us know. Functional Status Description No Information Available Mental Status Description No Information Available Referrals Refer to Reason for Referral Status Appt Date Marcela Dobbs MD CONSULT FOR PARESTHESIAS Patient Notified 01/29 [address] [place] [address] [phone]
--- OUTSIDE RECORDS SUMMARY | 2020-04-25 20:43 | CCD | Continuity of Care Document ---
Author Author Branden DIA M.D. Organization Unknown Address [address] [facility] [address] [place] [address] Phone [phone] Care Team Providers Care Dot Net Developer Name Role Phone Dash Dia MD [facility] [phone] Problems Active Problems Provider Date Overweight Onset: [...] nostril daily 16units Dash angulo M.D. 08/20/2017 Nystatin-Triamcinolone 888888-0.1Unit/GM-% Cream use to affected areas (corner of mouth) twice a day. 60Gram Dash Dia M.D. 02/01/2015 Multivitamins Capsules 1 by mouth every day 30caps Dash Dia M.D. 02/01/2015 Ventolin HFA 108(90Base) mcg/Act A erosol 2 puffs four times a day as needed 3units Dash Dia M.D. 02/01/2015 Mucinex Tablets 1 by mouth twice a day as needed congestion Dash Dia M.D. 5 Zyrtec Allergy 10mg Tablets 1 by mouth every day 30tabs Dash Dia M.D. 02/01/2015 Levothyroxine Sodium 100mcg Soluti on Rec 1 by mouth every day 90unleora Dia M.D. 02/02/20 [address] 1 by mouth every day 90caps Dash Dia M.D. 02/01/2015 Lisinopril 10mg Tablets 1 by mouth every day 90lexii Dia M.D. 11/16/2014 History Medications Prednisone 20mg Tablets 3 tabs x 3 days, then 2 tabs x3 days then 1 tab x 3 days then 1/2 tab x 4 days. 20lexii Dia M.D. 11/09/2019 - 01/12/2020 Administration Of Flu Vaccine Inj ection Unknown Immunizations CPT Code Status Date Vaccine Lot # U-Flu Given 01/29/2018 Influenza,Unspecified Q2037 Given 02/01/2015 Fluvirin Virus Vaccine 20592 01 90166 Given 01/11/2014 Influenza Virus Vaccine 15696 Given 01/09/2013 Influenza Virus Vaccine 06774 Given 01/09/2013 Influenza Virus Vaccine 53634 Given 02/02/2012 Influenza Virus Vaccine 61851 Given 01/16/2009 Influenza Virus Vaccine Vital Signs [...] Test Result H/L Range Note A1c 02/14/2020 [facility] Sonography Technologist: Dr Cruzito Moralez [place], [place] [id number] [phone] Hba1c 6.2 % High <5.7 1 Est Avg Glucose 131 mg/dL High 60 - 110 Comprehensive Chem Profile 02/14/2020 [facility] Sonography Technologist: [place] [address] [phone] Glucose 133 mg/dL High 74 - 99 [...] >60 GFR >= 60 mL/min >60 4 Complete Blood Count 11/09/2019 [facility] Sonography Technologist: [place] [address] [phone] WBC 9.6 x10*3/UL 4.1 - 10.9 RBC [...] 6.1 x10*3/UL 2.0 - 7.8 A1c 11/09/2019 [facility] Sonography Technologist: [place] [address] [phone] Hba1c 6.5 g/dL High 4.8 - 5.6 5 Est Avg Glucose 140 mg/dL High 60 - 110 Comprehensive Chem Profile 11/09/2019 [facility], Sonography Technologist: [place] [address] [phone] Glucose 154 mg/dL High 74 - 99 6 BUN 5 mg/dL Low 7 - 18 Creatinine 0.7 mg/dL 0.6 - 1.3 Sodium 142 mEq/L 136 - 145 Potassium 3.8 mEq/L 3.5 - 5.1 Chloride 104 mEq/L 98 - 107 Carbon Dioxide 31 mEq/L 21 - 32 Calcium 8.1 mg/dL Low 8.5 - 10.1 7 Alk. Phosphatase 70 mg/dL 46 - 116 Total Bilirubin 0.3 mg/dL 0.2 - 1.0 Ast (Sgot) 78 U/L High 15 - 37 8 Alt (SGPT) 77 U/L 12 - 78 Albumin 2.9 g/dL Low 3.4 - 5.0 9 Total Protein 7.2 g/dL 6.4 - 8.2 A/G Ratio 0.67 CALC Low 1.00 - 1.90 GFR >= 60 mL/min >60 GFR >= 60 mL/min >60 10 Lipid Profile 11/09/2019 [facility] , Sonography Technologist: [place] [address] [phone] Cholesterol 202 mg/dL High 131 - 200 Triglycerides 95 mg/dL 30 - 150 HDL Cholesterol 42 mg/dL 35 - 60 LDL (Calculated) 141 CALC 50 - 159 Microalbumin/Creatinine Urine 11/09/2019 [facility], Sonography Technologist: [place] [address] [phone] Microalbumin Urine 5.9 mg/L 1.3 - 20.0 [...] LITTLE GFR LEFT ESRD GFR <15 ON SURVEYOR CHAIN HELPER 5 Lab Result Notes: Pre-Diabetes 5.7 - 6.4 % Diabetes = or > 6.5% 6 100-125 mg/dL PRE-DIABET ES/FASTING >126 mg/dL DIABETES/FASTING 7 NOTE: RESULT VERIFIED. 8 NOTE: RESULT VERIFIED. 9 NOTE: RESULT VERIFIED. 10 CHRONIC KIDNEY DISEASE STAGI NG PER NKF STAGE I & II GFR >= 60 NORMAL TO MILDLY DECREASED STAGE III GFR 30-59 MODERATELY DECREASED STAGE IV GFR 15-29 SEVERELY DECREASED STAGE V GFR <15 VERY LITTLE GFR LEFT ESRD GFR <15 ON SURVEYOR CHAIN HELPER Procedures Date Code Description Status 09/20/2017 [id number] Colonoscopy Completed Medical Devices Description No Information Available Encounters Description No Information Available Assessments Date Code Description Provider 11/09/2019 I10 Essential (primary) hypertension Dash Dia [...] tion Dash Dia M.D. Plan of Treatment No Information Available Functional Status Description No Information Available Mental Status Description No Information Available Referrals Refer to Reason for Referral Status Appt Date Marcela Dobbs MD CONSULT FOR PARESTHESIAS Patient Notified 01/29 [address] [id number] [phone]
--- OUTSIDE RECORDS SUMMARY | 2020-04-25 20:43 | CCD | Continuity of Care Document ---
Author Author Branden LUEVANO Organization Unknown Address [address] [place] [address] Phone [phone] Care Team Providers Care Trouble Operator Name Role Phone Dash Dia M.D. AUTM [phone] Problems Active Problems Provider Date Paresthesia Suzie [...] needed 3units Dash Dia M.D. 02/01/2015 Nystatin-Triamcinolone 057279-8.1Unit/GM-% Cream use to affected areas (corner of [...] lb BMI (Body Mass Index) 34.4 kg/m2 [place] Body Weight 136 lb 11/09/2019 11:35am BP Systolic 128 mmHg BP Diastolic 80 mmHg Heart Rate 70 /min Height 65.5 inches Weight 214.00 lb BMI (Body Mass Index) 35.1 kg/m2 Results Test Acquired Date Facility Test Result H/L Range Note Laboratory test finding 02/02/2020 [facility] Erythrocyte Sedimentation Rate 45 mm/hr High 0-20 Immunotyping (Immunofixation) Serum (If 02/02/2020 [facility] It Serum Interpretation SEE COMMENT Normal 1 Its Pathologist Review REV'D BY Flaco ZALDIVAR <SEE NOTE> Normal 2 Serum Protein Electrophoresis 02/02/2020 [facility] Albumin % 48.9 % Low 55.8-66.1 Sroms-7-Aklgdxfr % 5.8 % High 2.9-4.9 Stygd-3-Ypzrlayyp % 14.7 % High 7.1-11.8 Fpxu-7-Vjyceimir % 8.5 % High 4.7-7.2 Jysf-8-Ltohrbksv % 6.1 % Normal 3.2-6.5 Gamma Globulin % 16.0 % Normal 11.1-18.8 Albumin 3.28 GM/DL Low 3.29-5.55 Aceqp-6-Klnvohmyc 0.39 GM/DL Normal 0.17-0.41 Jbkai-1-Opfdflbpl 0.98 GM/DL Normal 0.42-0.99 Hzal-8-Zuoqzqimk 0.57 GM/DL Normal 0.28-0.60 Tngn-5-Avssofuqn 0.41 GM/DL Normal 0.19-0.55 Gamma Globulins 1.07 GM/DL Normal 0.65-1.58 Total Protein 6.7 GM/DL Normal 6.4-8.2 Spep Interpretation SEE COMMENT Normal 3 Spep Pathologist Review REV'D BY Flaco ZALDIVAR <SEE NOTE> Normal 4 Thyroid Profile 02/02/2020 [facility] T Uptake 34 % Normal 30-39 Thyroxine (T4) 12.0 g/dL Normal 4.5-12.0 Free Thyroxine Index 4.1 % Normal 1.3-4.8 Thyroid Stimulating Hormone 0.954 uIU/ML Normal 0.358-3.740 FT4&TSH Panel 02/02/2020 [facility] Free T4 1.42 ng/dL Normal 0.76-1.46 Vitamin B12 & Folate 02/02/2020 [facility] Vitamin B12 Level 400 pg/mL Normal 5 Folate 6.2 NG/ML Normal 6 Laboratory test finding 02/02/2020 [facility] Rheumatoid Factor Quant < 10.0 IU/mL Normal <15.0 Vitamin E Level 02/02/2020 [facility] Vitamin E(Alpha Tocopherol) 8.7 mg/L Normal 7.0-25.1 Vitamin E(Gamma Tocopherol) 1.2 mg/L Normal 0.5-5.5 7 Laboratory test finding 02/02/2020 [facility] Vitamin B1 Level Whole Blood 97.5 nmol/L Normal 66.5-200.0 8 Vitamin B6,Pyridoxal Phosphate 2.6 ug/L Normal 2.0-32.8 9 Antinuclear Antibodies 02/02/2020 [facility] Antinuclear Antibodies Direct Negative Normal Negative [...] from National Health and Nutrition Examination Survey, 1067-1397. Individuals with alpha-tocopherol levels less than 5.0 mg/L are considered vitamin E deficient. 8 Specimen Comment: Test(s) 07 0141-Vitamin E(Alpha Tocopherol); 623123- Specimen Comment: Vitamin E(Gamma Tocopherol); 051619-Pzlsmkk B6; 025692- Specimen Comment: Vit. B1, Whole Blood Specimen Comment: was developed and its performance characteristics Specimen Comment: determined by [facility]. It has not been cleared or approved Specimen Comment: by the Food and Drug Administration. 9 Specimen Comment: Test(s) 07 0141-Vitamin E(Alpha Tocopherol); 237804- Specimen Comment: Vitamin E(Gamma Tocopherol); 543065-Adbczqn B6; 975403- Specimen Comment: Vit. B1, Whole Blood Specimen Comment: was developed and its performance characteristics Specimen Comment: determined by [facility]. It has not been cleared or approved Specimen Comment: by the Food and Drug Administration. 10 Performed at: - [facility] [id number] [employer]: Christy Hoover MD, Phone: [phone] Performed at: - [facility] [id number] [employer]: Bella Roca MD, Phone: [phone] Lab Result Notes: Pre-Diabetes 5.7 - [...] LITTLE GFR LEFT ESRD GFR <15 ON CONTINUITY MANAGER Procedures Date Code Description Status 02/24/2020 30740 MRI Spine Thoracic W/O Contrast Completed 02/24/2020 06523 MRI Spine Cervical W/O Contrast Completed 02/24/2020 10847 MRI Brain W/O Contrast Completed 02/14/2020 59579 Nerve Conduction 13+ Studies Com pleted 02/14/2020 16767 Needle Electromyography Complete , Five Or More Muscles Studied Completed 02/14/2020 91438 Needle Electromyography Complete , Five Or More Muscles Studied Completed 02/07/2020 92875 Artery Study Extremity Mult Leve ls Bilateral Completed 02/07/2020 73740 Artery Study Extremity Mult Leve ls Bilateral Completed 02/07/2020 64720 Artery Study Extremity Mult Leve ls Bilateral Completed 02/07/2020 26769 Artery Study Extremity Mult Leve ls Bilateral Completed 02/07/2020 68477 Needle Electromyography Complete , Five Or More Muscles Studied Completed 02/07/2020 13762 Needle Electromyography Complete , Five Or More Muscles Studied Completed 02/07/2020 28636 Nerve Conduction 13+ Studies Com pleted 02/07/2020 02473 Test Autonomic Nervous System, C ardiovagal Innervation Completed 02/07/2020 53309 Test Autonomic Nervous System, C ardiovagal Innervation Completed 02/07/2020 92721 Sympathetic Skin Responses Compl eted 02/07/2020 52017 Sympathetic Skin Responses Compl eted Medical Devices Description No Information Available Encounters Type Date Location Provider Dx Diagnosis Office Visit 01/30/2020 9:00a Main office - [place] Suzie stern M.D. R20.2 Paresthesia of skin Assessments Date Code Description Provider 02/24/2020 G37.9 Demyelinating disease of central nervous system, unspecified MRI 02/24/2020 R20.2 Paresthesia of skin MRI 02/14/2020 [...] tunnel syndrome, right up per limb Suzie Goznales M.D. 02/07/2020 M79.605 Pain in left leg Suzie Gonzales M.D. 02/07/2020 M79.604 Pain in right leg Suzie davila M.D. 02/07/2020 M79.602 Pain in left arm Suzie Gonzales M.D. 02/07/2020 M79.601 Pain in right arm Suzie davila M.D. 01/30/2020 R20.2 Paresthesia of skin Suzie stern M.D. Plan of Treatment Future Appointment(s):* 05/06/2020 1:30 pm - Suzie Gonzales M.D. at Main office - [place] Functional Status Description No Information Available Mental Status Description No Information Available Referrals Description No Information Available
--- OUTSIDE RECORDS SUMMARY | 2020-04-25 20:43 | CCD | Continuity of Care Document ---
Author Author Branden DIA M.D. Organization Unknown Address [address] [facility] [address] [place] [address] Phone [phone] Care Team Providers Care Anesthesia Director Name Role Phone Dash Dia MD [facility] [phone] Problems Active Problems Provider Date Overweight Onset: [...] daily 16units Dash angulo M.D. 08/20/2017 Nystatin-Triamcinolone 889960-8.1Unit/GM-% Cream use to affected areas (corner of [...] Influenza,Unspecified Q2037 Given 02/01/2015 Fluvirin Virus Vaccine 09922 01 13087 Given 01/11/2014 Influenza Virus Vaccine 20430 Given 01/09/2013 Influenza Virus Vaccine 12620 Given 01/09/2013 Influenza Virus Vaccine 06887 Given 02/02/2012 Influenza Virus Vaccine 56214 Given 01/16/2009 Influenza Virus Vaccine Vital Signs [...] Test Result H/L Range Note A1c 02/14/2020 [facility] Grease Monkey: Dr Cruzito Moralez [place], [place] [id number] [phone] Hba1c 6.2 % High <5.7 1 Est Avg Glucose 131 mg/dL High 60 - 110 Comprehensive Chem Profile 02/14/2020 [facility] Grease Monkey: [place] [address] [phone] Glucose 133 mg/dL High 74 - 99 [...] mL/min >60 4 Laboratory test finding 02/14/2020 [facility] [address] [place] [address] [phone] PTH Intact <pending> Complete Blood Count 02/14/2020 [facility] Grease Monkey: [place] [address] [phone] WBC 9.3 x10*3/UL 4.1 - 10.9 RBC [...] 2.0 - 7.8 Laboratory test finding 02/14/2020 [facility] [employer] Grease Monkey: [place] [address] [phone] Magnesium 0.5 mg/dL Critical low 1.8 - 2.4 5 Laboratory test finding 02/14/2020 [facility] [employer] [facility] [employer] [employer] Grease Monkey: [place] [address] [phone] Vitamin D 25-Hydroxy 15.4 Low 24.0 - 80.0 6 Complete Blood Count 11/09/2019 [facility] Grease Monkey: [place] [address] [phone] WBC 9.6 x10*3/UL 4.1 - 10.9 RBC [...] 6.1 x10*3/UL 2.0 - 7.8 A1c 11/09/2019 [facility] Grease Monkey: [place] [address] [phone] Hba1c 6.5 g/dL High 4.8 - 5.6 7 Est Avg Glucose 140 mg/dL High 60 - 110 Comprehensive Chem Profile 11/09/2019 [facility], Grease Monkey: [place] [address] [phone] Glucose 154 mg/dL High 74 - 99 [...] 60 mL/min >60 12 Lipid Profile 11/09/[address] [facility] Grease Monkey: [place] [address] [phone] Cholesterol 202 mg/dL High 131 - 200 Triglycerides 95 mg/dL 30 - 150 HDL Cholesterol 42 mg/dL 35 - 60 LDL (Calculated) 141 CALC 50 - 159 Microalbumin/Creatinine Urine 11/09/2019 [facility] Grease Monkey: [place] [address] [phone] Microalbumin Urine 5.9 mg/L 1.3 - 20.0 [...] LITTLE GFR LEFT ESRD GFR <15 ON MARINE ELECTRICIAN APPRENTICE 5 CRITICAL: DR DIA NOTIFIED NOTE: RESULT VERIFIED. 6 This test was performed [employer] Vitamin D immunoassay kit. Values obtained with [...] LITTLE GFR LEFT ESRD GFR <15 ON MARINE ELECTRICIAN APPRENTICE Procedures Date Code Description Status 09/20/2017 [id number] Colonoscopy Completed Medical Devices Description No Information Available Encounters Description No Information Available Assessments Date Code Description Provider 02/14/2020 E83.51 [...] cytological findings in specimens from cervix uteri Dahs Dia M.D. 02/14/2020 E78.5 Hyperlipidemia, unspecified Araceli Dia M.D. 11/09/2019 I10 Essential (primary) hypertension [...] 1:30 pm - Dash Dia M.D. at [facility] 02/14/2020 - Dash Dia M.D.* E83.51 Hypocalcemia * E11.9 Type 2 diabetes mellitus without complications * K76.0 Fatty (change of) liver, not elsewhere classified * E03.9 Hypothyroidism, unspecified * R25.2 Cramp and spasm * J45.998 Other asthma * K21.9 Gastro-esophageal reflux disease without esophagitis * R87.619 Unsp abnormal cytolog findings in specmn from cervix uteri * E78.5 Hyperlipidemia, unspecified Functional Status Description No Information Available Mental Status Description No Information Available Referrals Refer to Reason for Referral Status Appt Date Marcela Dobbs MD CONSULT FOR PARESTHESIAS Patient Notified 01/29 [address] [place] [address] [phone]
--- OUTSIDE RECORDS SUMMARY | 2020-04-25 20:43 | CCD | Continuity of Care Document ---
Author Author Branden ENGLISH M.D. Organization Unknown Address [address] [place] [address] Phone [phone] Care Team Providers Care Ginner Helper Name Role Phone Dash Dia M.D. AUTM [phone] Problems Active Problems Provider Date Paresthesia Suzie [...] needed 3units Dash Dia M.D. 02/01/2015 Nystatin-Triamcinolone 046789-9.1Unit/GM-% Cream use to affected areas (corner of [...] lb BMI (Body Mass Index) 34.4 kg/m2 [place] Body Weight 136 lb 11/09/2019 11:35am BP Systolic 128 mmHg BP Diastolic 80 mmHg Heart Rate 70 /min Height 65.5 inches Weight 214.00 lb BMI (Body Mass Index) 35.1 kg/m2 Results Test Acquired Date Facility Test Result H/L Range Note Laboratory test finding 02/02/2020 [facility] Erythrocyte Sedimentation Rate 45 mm/hr High 0-20 Immunotyping (Immunofixation) Serum (If 02/02/2020 [facility] It Serum Interpretation SEE COMMENT Normal 1 Its Pathologist Review REV'D BY Flaco ZALDIVAR <SEE NOTE> Normal 2 Serum Protein Electrophoresis 02/02/2020 [facility] Albumin % 48.9 % Low 55.8-66.1 Xnxhk-7-Xljgrrzm % 5.8 % High 2.9-4.9 Gvgtr-9-Ewlpfuhyp % 14.7 % High 7.1-11.8 Pgjj-8-Bpstgoxav % 8.5 % High 4.7-7.2 Looe-2-Uhwsdysle % 6.1 % Normal 3.2-6.5 Gamma Globulin % 16.0 % Normal 11.1-18.8 Albumin 3.28 GM/DL Low 3.29-5.55 Qinnf-4-Hdzfoksqo 0.39 GM/DL Normal 0.17-0.41 Phqdd-3-Zasqjirmi 0.98 GM/DL Normal 0.42-0.99 Jpte-2-Vsvmpvrks 0.57 GM/DL Normal 0.28-0.60 Pcbm-3-Xjsldbrru 0.41 GM/DL Normal 0.19-0.55 Gamma Globulins 1.07 GM/DL Normal 0.65-1.58 Total Protein 6.7 GM/DL Normal 6.4-8.2 Spep Interpretation SEE COMMENT Normal 3 Spep Pathologist Review REV'D BY Flaco ZALDIVAR <SEE NOTE> Normal 4 Thyroid Profile 02/02/2020 [facility] T Uptake 34 % Normal 30-39 Thyroxine (T4) 12.0 g/dL Normal 4.5-12.0 Free Thyroxine Index 4.1 % Normal 1.3-4.8 Thyroid Stimulating Hormone 0.954 uIU/ML Normal 0.358-3.740 FT4&TSH Panel 02/02/2020 [facility] Free T4 1.42 ng/dL Normal 0.76-1.46 Vitamin B12 & Folate 02/02/2020 [facility] Vitamin B12 Level 400 pg/mL Normal 5 Folate 6.2 NG/ML Normal 6 Laboratory test finding 02/02/2020 [facility] Rheumatoid Factor Quant < 10.0 IU/mL Normal <15.0 Vitamin E Level 02/02/2020 [facility] Vitamin E(Alpha Tocopherol) 8.7 mg/L Normal 7.0-25.1 Vitamin E(Gamma Tocopherol) 1.2 mg/L Normal 0.5-5.5 7 Laboratory test finding 02/02/2020 [facility] Vitamin B1 Level Whole Blood 97.5 nmol/L Normal 66.5-200.0 8 Vitamin B6,Pyridoxal Phosphate 2.6 ug/L Normal 2.0-32.8 9 Antinuclear Antibodies 02/02/2020 [facility] Antinuclear Antibodies Direct Negative Normal Negative 10 [...] from National Health and Nutrition Examination Survey, 8898-6765. Individuals with alpha-tocopherol levels less than 5.0 mg/L are considered vitamin E deficient. 8 Specimen Comment: Test(s) 07 0141-Vitamin E(Alpha Tocopherol); 549418- Specimen Comment: Vitamin E(Gamma Tocopherol); 887088-Txtvrom B6; 202978- Specimen Comment: Vit. B1, Whole Blood Specimen Comment: was developed and its performance characteristics Specimen Comment: determined by [facility]. It has not been cleared or approved Specimen Comment: by the Food and Drug Administration. 9 Specimen Comment: Test(s) 07 0141-Vitamin E(Alpha Tocopherol); 914450- Specimen Comment: Vitamin E(Gamma Tocopherol); 017657-Irygkpi B6; 687502- Specimen Comment: Vit. B1, Whole Blood Specimen Comment: was developed and its performance characteristics Specimen Comment: determined by [facility]. It has not been cleared or approved Specimen Comment: by the Food and Drug Administration. 10 Performed at: - [facility] [id number] Plumber Helper: Christy Hoover MD, Phone: [phone] Performed at: [facility] [id number] Plumber Helper: Bella Roca MD, Phone: [phone] Lab Result Notes: Pre-Diabetes 5.7 - [...] LITTLE GFR LEFT ESRD GFR <15 ON ACCREDITED LEGAL SECRETARY Procedures Date Code Description Status 02/14/2020 65025 Nerve Conduction 13+ Studies Com pleted 02/14/2020 80152 Needle Electromyography Complete , Five Or More Muscles Studied Completed 02/14/2020 51108 Needle Electromyography Complete , Five Or More Muscles Studied Completed 02/07/2020 84616 Sympathetic Skin Responses Compl eted 02/07/2020 27312 Sympathetic Skin Responses Compl eted 02/07/2020 81030 Test Autonomic Nervous System, C ardiovagal Innervation Completed 02/07/2020 10873 Test Autonomic Nervous System, C ardiovagal Innervation Completed 02/07/2020 01194 Nerve Conduction 13+ Studies Com pleted 02/07/2020 30142 Needle Electromyography Complete , Five Or More Muscles Studied Completed 02/07/2020 62601 Needle Electromyography Complete , Five Or More Muscles Studied Completed 02/07/2020 63465 Artery Study Extremity Mult Leve ls Bilateral Completed 02/07/2020 07885 Artery Study Extremity Mult Leve ls Bilateral Completed 02/07/2020 30165 Artery Study Extremity Mult Leve ls Bilateral Completed 02/07/2020 87702 Artery Study Extremity Mult Leve ls Bilateral Completed Medical Devices Description No Information Available Encounters Type Date Location Provider Dx Diagnosis Office Visit 01/30/2020 9:00a Main office - [place] Suzie stern M.D. R20.2 Paresthesia of skin Assessments Date Code Description Provider 02/14/2020 M79.605 Pain in left leg Suzie [...] skin Suzie stern M.D. 02/07/2020 M54.2 Cervicalgia Szuie English M.D. 02/07/2020 G56.01 Carpal tunnel syndrome, [...] Suzie English M.D. at Main office - [place] Functional Status Description No Information Available Mental Status Description No Information Available Referrals Description No Information Available
--- OUTSIDE RECORDS SUMMARY | 2020-04-25 20:43 | CCD | Continuity of Care Document ---
Author Author Branden LUEVANO Organization Unknown Address [address] [place] [address] Phone [phone] Care Team Providers Care Amf Mechanic Name Role Phone Dash Dia M.D. AUTM [phone] Problems Active Problems Provider Date Paresthesia Suzie [...] needed 3units Dash Dia M.D. 02/01/2015 Nystatin-Triamcinolone 143718-3.1Unit/GM-% Cream use to affected areas (corner of [...] lb BMI (Body Mass Index) 34.4 kg/m2 [place] Body Weight 136 lb 11/09/2019 11:35am BP Systolic 128 mmHg BP Diastolic 80 mmHg Heart Rate 70 /min Height 65.5 inches Weight 214.00 lb BMI (Body Mass Index) 35.1 kg/m2 Results Test Acquired Date Facility Test Result H/L Range Note Laboratory test finding 02/02/2020 [facility] Erythrocyte Sedimentation Rate 45 mm/hr High 0-20 Immunotyping (Immunofixation) Serum (If 02/02/2020 [facility] It Serum Interpretation SEE COMMENT Normal 1 Its Pathologist Review REV'D BY Flaco ZALDIVAR <SEE NOTE> Normal 2 Serum Protein Electrophoresis 02/02/2020 [facility] Albumin % 48.9 % Low 55.8-66.1 Odcng-6-Crwqcucy % 5.8 % High 2.9-4.9 Nblwx-6-Cyaiyuufq % 14.7 % High 7.1-11.8 Wcps-0-Kwxvmgprb % 8.5 % High 4.7-7.2 Qvcf-3-Yradxdbwa % 6.1 % Normal 3.2-6.5 Gamma Globulin % 16.0 % Normal 11.1-18.8 Albumin 3.28 GM/DL Low 3.29-5.55 Juwvu-7-Sdsxgwepq 0.39 GM/DL Normal 0.17-0.41 Bgspl-3-Ayzlzfscd 0.98 GM/DL Normal 0.42-0.99 Tybi-9-Lskbkhtwb 0.57 GM/DL Normal 0.28-0.60 Bsnf-3-Obiqwqnnf 0.41 GM/DL Normal 0.19-0.55 Gamma Globulins 1.07 GM/DL Normal 0.65-1.58 Total Protein 6.7 GM/DL Normal 6.4-8.2 Spep Interpretation SEE COMMENT Normal 3 Spep Pathologist Review REV'D BY Flaco ZALDIVAR <SEE NOTE> Normal 4 Thyroid Profile 02/02/2020 [facility] T Uptake 34 % Normal 30-39 Thyroxine (T4) 12.0 g/dL Normal 4.5-12.0 Free Thyroxine Index 4.1 % Normal 1.3-4.8 Thyroid Stimulating Hormone 0.954 uIU/ML Normal 0.358-3.740 FT4&TSH Panel 02/02/2020 [facility] Free T4 1.42 ng/dL Normal 0.76-1.46 Vitamin B12 & Folate 02/02/2020 [facility] Vitamin B12 Level 400 pg/mL Normal 5 Folate 6.2 NG/ML Normal 6 Laboratory test finding 02/02/2020 [facility] Rheumatoid Factor Quant < 10.0 IU/mL Normal <15.0 Vitamin E Level 02/02/2020 [facility] Vitamin E(Alpha Tocopherol) 8.7 mg/L Normal 7.0-25.1 Vitamin E(Gamma Tocopherol) 1.2 mg/L Normal 0.5-5.5 7 Laboratory test finding 02/02/2020 [facility] Vitamin B1 Level Whole Blood 97.5 nmol/L Normal 66.5-200.0 8 Vitamin B6,Pyridoxal Phosphate 2.6 ug/L Normal 2.0-32.8 9 Antinuclear Antibodies 02/02/2020 [facility] Antinuclear Antibodies Direct Negative Normal Negative [...] from National Health and Nutrition Examination Survey, 9039-4967. Individuals with alpha-tocopherol levels less than 5.0 mg/L are considered vitamin E deficient. 8 Specimen Comment: Test(s) 07 0141-Vitamin E(Alpha Tocopherol); 469529- Specimen Comment: Vitamin E(Gamma Tocopherol); 415206-Vhqokas B6; 687443- Specimen Comment: Vit. B1, Whole Blood Specimen Comment: was developed and its performance characteristics Specimen Comment: determined by [facility]. It has not been cleared or approved Specimen Comment: by the Food and Drug Administration. 9 Specimen Comment: Test(s) 07 0141-Vitamin E(Alpha Tocopherol); 170986- Specimen Comment: Vitamin E(Gamma Tocopherol); 903815-Tyozaqo B6; 065559- Specimen Comment: Vit. B1, Whole Blood Specimen Comment: was developed and its performance characteristics Specimen Comment: determined by [facility]. It has not been cleared or approved Specimen Comment: by the Food and Drug Administration. 10 Performed at: - [facility] [id number] Nursing Support Worker: Christy Hoover MD, Phone: [phone] Performed at: - [facility] [id number] Nursing Support Worker: Bella Roca MD, Phone: [phone] Lab Result Notes: Pre-Diabetes 5.7 - [...] LITTLE GFR LEFT ESRD GFR <15 ON REIMBURSEMENT SPECIALIST Procedures Date Code Description Status 02/24/2020 16330 MRI Spine Thoracic W/O Contrast Completed 02/24/2020 93104 MRI Spine Cervical W/O Contrast Completed 02/24/2020 03280 MRI Brain W/O Contrast Completed 02/14/2020 76756 Nerve Conduction 13+ Studies Com pleted 02/14/2020 55243 Needle Electromyography Complete , Five Or More Muscles Studied Completed 02/14/2020 71569 Needle Electromyography Complete , Five Or More Muscles Studied Completed 02/07/2020 24302 Artery Study Extremity Mult Leve ls Bilateral Completed 02/07/2020 83166 Artery Study Extremity Mult Leve ls Bilateral Completed 02/07/2020 49528 Artery Study Extremity Mult Leve ls Bilateral Completed 02/07/2020 06897 Artery Study Extremity Mult Leve ls Bilateral Completed 02/07/2020 55768 Needle Electromyography Complete , Five Or More Muscles Studied Completed 02/07/2020 44632 Needle Electromyography Complete , Five Or More Muscles Studied Completed 02/07/2020 71479 Nerve Conduction 13+ Studies Com pleted 02/07/2020 71443 Test Autonomic Nervous System, C ardiovagal Innervation Completed 02/07/2020 33011 Test Autonomic Nervous System, C ardiovagal Innervation Completed 02/07/2020 18143 Sympathetic Skin Responses Compl eted 02/07/2020 54096 Sympathetic Skin Responses Compl eted Medical Devices Description No Information Available Encounters Type Date Location Provider Dx Diagnosis Office Visit 01/30/2020 9:00a Main office - [place] Suzie stern M.D. R20.2 Paresthesia of skin [...] Suzie Gonzales M.D. at Main office - [place] Functional Status Description No Information Available Mental Status Description No Information Available Referrals Description No Information Available
--- OUTSIDE RECORDS SUMMARY | 2020-04-25 20:43 | CCD | Continuity of Care Document ---
Author Author Branden DIA M.D. Organization Unknown Address [address] [facility] [address] [place] [address] Phone [phone] Care Team Providers Care Medical Leader Name Role Phone Dash Dai MD [facility] [phone] Problems Active Problems Provider Date Overweight Onset: [...] Indications Ordering Provide r Date Drisdol 1.25mg (33319 Ut) Capsules 1 tab weekly 12caps Dash [...] day 30caps Dash Dia M.D. 02/01/2015 Nystatin-Triamcinolone 354968-0.1Unit/GM-% Cream use to affected areas (corner of mouth) twice a day. 60Gram Dash Dia M.D. 02/01/2015 Lisinopril 10mg Tablets 1 by mouth every day 90tabs Dash Dia M.D. 11/16/2014 History Medications Prednisone 20mg Tablets 3 tabs x 3 days, then 2 tabs x3 days then 1 tab x 3 days then 1/2 tab x 4 days. 20tachristopher Dia M.D. 11/09/2019 - 01/12/2020 Administration Of Flu Vaccine Inj ection Unknown Immunizations CPT Code Status Date Vaccine Lot # U-Flu Given 01/29/2018 Influenza,Unspecified Q2037 Given 02/01/2015 Fluvirin Virus Vaccine 92240 01 87182 Given 01/11/2014 Influenza Virus Vaccine 46456 Given 01/09/2013 Influenza Virus Vaccine 50778 Given 01/09/2013 Influenza Virus Vaccine 68789 Given 02/02/2012 Influenza Virus Vaccine 83331 Given 01/16/2009 Influenza Virus Vaccine Vital Signs [...] Test Result H/L Range Note A1c 02/14/2020 [facility] Metal Washing Machine Operator: [place] [address] [phone] Hba1c 6.2 % High <5.7 1 Est Avg Glucose 131 mg/dL High 60 - 110 Comprehensive Chem Profile 02/14/2020 [facility] Metal Washing Machine Operator: [place] [address] [phone] Glucose 133 mg/dL High 74 - 99 [...] mL/min >60 4 Laboratory test finding 02/14/2020 [facility] [address] [place] [address] [phone] PTH Intact <pending> Complete Blood Count 02/14/2020 [facility] tra[facility] wallace Metal Washing Machine Operator: [place] [address] [phone] WBC 9.3 x10*3/UL 4.1 - 10.9 RBC [...] 2.0 - 7.8 Laboratory test finding 02/14/2020 [facility], Metal Washing Machine Operator: Dr [place]ito [place] [id number] [phone] Magnesium 0.5 mg/dL Critical low 1.8 - 2.4 5 Laboratory test finding 02/14/2020 [facility], Metal Washing Machine Operator: [place] Cruzito [place] [address] [phone] Vitamin D 25-Hydroxy 15.4 Low 24.0 - 80.0 6 Complete Blood Count 11/09/2019 [facility] Metal Washing Machine Operator: [place] Cruzito [place] [address] [phone] WBC 9.6 x10*3/UL 4.1 - 10.9 RBC [...] 6.1 x10*3/UL 2.0 - 7.8 A1c 11/09/2019 [facility] Metal Washing Machine Operator: [place] Cruzito [place] [address] [phone] Hba1c 6.5 g/dL High 4.8 - 5.6 7 Est Avg Glucose 140 mg/dL High 60 - 110 Comprehensive Chem Profile 11/09/2019 [facility], Metal Washing Machine Operator: [place] Cruzito [place] [address] [phone] Glucose 154 mg/dL High 74 - 99 [...] 60 mL/min >60 12 Lipid Profile 11/09/2019 [facility] , Metal Washing Machine Operator: [place] Cruzito [place] [address] [phone] Cholesterol 202 mg/dL High 131 - 200 Triglycerides 95 mg/dL 30 - 150 HDL Cholesterol 42 mg/dL 35 - 60 LDL (Calculated) 141 CALC 50 - 159 Microalbumin/Creatinine Urine 11/09/2019 [facility], Metal Washing Machine Operator: [place] Cruzito [place] [address] [phone] Microalbumin Urine 5.9 mg/L 1.3 - 20.0 [...] LITTLE GFR LEFT ESRD GFR <15 ON NAPHTHALENE OPERATOR HELPER 5 CRITICAL: DR DIA NOTIFIED NOTE: RESULT VERIFIED. 6 This test was performed [employer] Vitamin D immunoassay kit. Values obtained with [...] LITTLE GFR LEFT ESRD GFR <15 ON NAPHTHALENE OPERATOR HELPER Procedures Date Code Description Status 09/20/2017 74241442 Colonoscopy Completed Medical Devices Description No Information [...] 1:30 pm - Dash Dia M.D. at [facility] 02/14/2020 - Dash Dia M.D.* E83.51 Hypocalcemia * E11.9 Type 2 diabetes mellitus without complications * K76.0 Fatty (change of) liver, not elsewhere classified * E03.9 Hypothyroidism, unspecified * R25.2 Cramp and spasm * J45.998 Other asthma * K21.9 Gastro-esophageal reflux disease without esophagitis * R87.619 Unsp abnormal cytolog findings in specmn from cervix uteri * E78.5 Hyperlipidemia, unspecified * Functional Status Description No Information Available Mental Status Description No Information Available Referrals Refer to Dr Reason for Referral Status Appt Date Marcela Dobbs MD CONSULT FOR PARESTHESIAS Patient Notified 01/29 [address] [place] [address] [phone]
--- OUTSIDE RECORDS SUMMARY | 2020-04-25 20:43 | CCD | Continuity of Care Document ---
Author Author Branden LUEVANO Organization Unknown Address [address] [place] [address] Phone [phone] Care Team Providers Care Director Sales And Trade Marketing Name Role Phone Dash Dia M.D. AUTM [phone] Problems Active Problems Provider Date Paresthesia Suzie [...] needed 3units Dash Dia M.D. 02/01/2015 Nystatin-Triamcinolone 080732-4.1Unit/GM-% Cream use to affected areas (corner of [...] lb BMI (Body Mass Index) 34.4 kg/m2 [place] Body Weight 136 lb 11/09/2019 11:35am BP Systolic 128 mmHg BP Diastolic 80 mmHg Heart Rate 70 /min Height 65.5 inches Weight 214.00 lb BMI (Body Mass Index) 35.1 kg/m2 Results Test Acquired Date Facility Test Result H/L Range Note Laboratory test finding 02/02/2020 [facility] Erythrocyte Sedimentation Rate 45 mm/hr High 0-20 Immunotyping (Immunofixation) Serum (If 02/02/2020 [facility] It Serum Interpretation SEE COMMENT Normal 1 Its Pathologist Review REV'D BY Flaco ZALDIVAR <SEE NOTE> Normal 2 Serum Protein Electrophoresis 02/02/2020 [facility] Albumin % 48.9 % Low 55.8-66.1 Shdct-9-Zhckpuzi % 5.8 % High 2.9-4.9 Gjtvd-3-Jyfncwsbv % 14.7 % High 7.1-11.8 Tymm-7-Hwbjxykag % 8.5 % High 4.7-7.2 Iaxm-0-Mufshpxcv % 6.1 % Normal 3.2-6.5 Gamma Globulin % 16.0 % Normal 11.1-18.8 Albumin 3.28 GM/DL Low 3.29-5.55 Zascd-8-Tyqkhfwxr 0.39 GM/DL Normal 0.17-0.41 Bujbv-9-Naxumzcnf 0.98 GM/DL Normal 0.42-0.99 Kzwx-2-Oolkoobzf 0.57 GM/DL Normal 0.28-0.60 Pjkd-7-Nxzsxbxjw 0.41 GM/DL Normal 0.19-0.55 Gamma Globulins 1.07 GM/DL Normal 0.65-1.58 Total Protein 6.7 GM/DL Normal 6.4-8.2 Spep Interpretation SEE COMMENT Normal 3 Spep Pathologist Review REV'D BY Flaco ZALDIVAR <SEE NOTE> Normal 4 Thyroid Profile 02/02/2020 [facility] T Uptake 34 % Normal 30-39 Thyroxine (T4) 12.0 g/dL Normal 4.5-12.0 Free Thyroxine Index 4.1 % Normal 1.3-4.8 Thyroid Stimulating Hormone 0.954 uIU/ML Normal 0.358-3.740 FT4&TSH Panel 02/02/2020 [facility] Free T4 1.42 ng/dL Normal 0.76-1.46 Vitamin B12 & Folate 02/02/2020 [facility] Vitamin B12 Level 400 pg/mL Normal 5 Folate 6.2 NG/ML Normal 6 Laboratory test finding 02/02/2020 [facility] Rheumatoid Factor Quant < 10.0 IU/mL Normal <15.0 Vitamin E Level 02/02/2020 [facility] Vitamin E(Alpha Tocopherol) 8.7 mg/L Normal 7.0-25.1 Vitamin E(Gamma Tocopherol) 1.2 mg/L Normal 0.5-5.5 7 Laboratory test finding 02/02/2020 [facility] Vitamin B1 Level Whole Blood 97.5 nmol/L Normal 66.5-200.0 8 Vitamin B6,Pyridoxal Phosphate 2.6 ug/L Normal 2.0-32.8 9 Antinuclear Antibodies 02/02/2020 [facility] Antinuclear Antibodies Direct Negative Normal Negative [...] from National Health and Nutrition Examination Survey, 1281-6581. Individuals with alpha-tocopherol levels less than 5.0 mg/L are considered vitamin E deficient. 8 Specimen Comment: Test(s) 07 0141-Vitamin E(Alpha Tocopherol); 175072- Specimen Comment: Vitamin E(Gamma Tocopherol); 627526-Ezbsrlp B6; 393310- Specimen Comment: Vit. B1, Whole Blood Specimen Comment: was developed and its performance characteristics Specimen Comment: determined by [facility]. It has not been cleared or approved Specimen Comment: by the Food and Drug Administration. 9 Specimen Comment: Test(s) 07 0141-Vitamin E(Alpha Tocopherol); 455725- Specimen Comment: Vitamin E(Gamma Tocopherol); 047419-Lcsusnk B6; 099105- Specimen Comment: Vit. B1, Whole Blood Specimen Comment: was developed and its performance characteristics Specimen Comment: determined by [facility]. It has not been cleared or approved Specimen Comment: by the Food and Drug Administration. 10 Performed at: - [facility] [id number] Windows Vmware Engineer: Christy Hoover MD, Phone: [phone] Performed at: - [facility] [id number] Windows Vmware Engineer: Bella Roca MD, Phone: [phone] Lab Result Notes: Pre-Diabetes 5.7 - [...] LITTLE GFR LEFT ESRD GFR <15 ON WINE SPECIALIST Procedures Date Code Description Status 02/24/2020 91681 MRI Spine Thoracic W/O Contrast Completed 02/24/2020 58075 MRI Spine Cervical W/O Contrast Completed 02/24/2020 07255 MRI Brain W/O Contrast Completed 02/14/2020 54691 Nerve Conduction 13+ Studies Com pleted 02/14/2020 50711 Needle Electromyography Complete , Five Or More Muscles Studied Completed 02/14/2020 37835 Needle Electromyography Complete , Five Or More Muscles Studied Completed 02/07/2020 20212 Artery Study Extremity Mult Leve ls Bilateral Completed 02/07/2020 38930 Artery Study Extremity Mult Leve ls Bilateral Completed 02/07/2020 33418 Artery Study Extremity Mult Leve ls Bilateral Completed 02/07/2020 67421 Artery Study Extremity Mult Leve ls Bilateral Completed 02/07/2020 39652 Needle Electromyography Complete , Five Or More Muscles Studied Completed 02/07/2020 38228 Needle Electromyography Complete , Five Or More Muscles Studied Completed 02/07/2020 04186 Nerve Conduction 13+ Studies Com pleted 02/07/2020 49992 Test Autonomic Nervous System, C ardiovagal Innervation Completed 02/07/2020 70364 Test Autonomic Nervous System, C ardiovagal Innervation Completed 02/07/2020 17309 Sympathetic Skin Responses Compl eted 02/07/2020 01050 Sympathetic Skin Responses Compl eted Medical Devices Description No Information Available Encounters Type Date Location Provider Dx Diagnosis Office Visit 01/30/2020 9:00a Main office - [place] Suzie stern M.D. R20.2 Paresthesia of skin [...] Suzie Gonzales M.D. at Main office - [place] Functional Status Description No Information Available Mental Status Description No Information Available Referrals Description No Information Available
--- OUTSIDE RECORDS SUMMARY | 2020-04-25 20:43 | CCD | Continuity of Care Document ---
Author Author Branden DIA M.D. Organization Unknown Address [address] [facility] [address] [place] [address] Phone [phone] Care Team Providers Care Hair And Makeup Designer Name Role Phone Dash Dia MD [facility] [phone] Problems Active Problems Provider Date Overweight Onset: [...] Indications Ordering Provide r Date Drisdol 1.25mg (58577 Ut) Capsules 1 tab weekly 12caps Dash [...] day 30caps Dash Dia M.D. 02/01/2015 Nystatin-Triamcinolone 175067-3.1Unit/GM-% Cream use to affected areas (corner of [...] Influenza,Unspecified Q2037 Given 02/01/2015 Fluvirin Virus Vaccine 15689 01 84970 Given 01/11/2014 Influenza Virus Vaccine 85135 Given 01/09/2013 Influenza Virus Vaccine 73263 Given 01/09/2013 Influenza Virus Vaccine 77346 Given 02/02/2012 Influenza Virus Vaccine 14708 Given 01/16/2009 Influenza Virus Vaccine Vital Signs [...] Test Result H/L Range Note A1c 02/14/2020 [facility] Side Stitcher: [place] [address] [phone] Hba1c 6.2 % High <5.7 1 Est Avg Glucose 131 mg/dL High 60 - 110 Comprehensive Chem Profile 02/14/2020 [facility] Side Stitcher: Dr Cruzito Moralez [place], [place] [address] [phone] Glucose 133 mg/dL High 74 - 99 [...] mL/min >60 4 Laboratory test finding 02/14/2020 [facility] [address] [place], [place] [id number] [phone] PTH Intact 24.5 pg/mL Normal 18.5-88.0 Complete Blood Count 02/14/2020 [facility] Side Stitcher: [place] [address] [phone] WBC 9.3 x10*3/UL 4.1 - 10.9 RBC [...] 2.0 - 7.8 Laboratory test finding 02/14/2020 [facility] [employer] [employer] [facility] connie, Side Stitcher: [place] [address] [phone] Magnesium 0.5 mg/dL Critical low 1.8 - 2.4 5 Laboratory test finding 02/14/2020 [facility] [employer] [facility] Side Stitcher: [place] [address] [phone] Vitamin D 25-Hydroxy 15.4 Low 24.0 - 80.0 6 Complete Blood Count 11/09/2019 [facility] Side Stitcher: [place] [address] [phone] WBC 9.6 x10*3/UL 4.1 - 10.9 RBC [...] 6.1 x10*3/UL 2.0 - 7.8 A1c 11/09/2019 [facility] , Side Stitcher: Dr Cruzito Moralez [place] [address]25 [phone] Hba1c 6.5 g/dL High 4.8 - 5.6 7 Est Avg Glucose 140 mg/dL High 60 - 110 Comprehensive Chem Profile 11/09/2019 [facility], Side Stitcher: Dr Cruzito Moralez [place] [address]01 [phone] Glucose 154 mg/dL High 74 - 99 [...] 60 mL/min >60 12 Lipid Profile 11/09/2019 [facility] , Side Stitcher: Dr Cruzito Moralez [place] [address]45 [phone] Cholesterol 202 mg/dL High 131 - 200 Triglycerides 95 mg/dL 30 - 150 HDL Cholesterol 42 mg/dL 35 - 60 LDL (Calculated) 141 CALC 50 - 159 Microalbumin/Creatinine Urine 11/09/2019 [facility], Side Stitcher: [place] [address] [phone] Microalbumin Urine 5.9 mg/L 1.3 - 20.0 [...] LITTLE GFR LEFT ESRD GFR <15 ON MECHANICAL DRAWING TEACHER 5 CRITICAL: DR DIA NOTIFIED NOTE: RESULT VERIFIED. 6 This test was performed [employer] [place] Vitamin D immunoassay kit. Values obtained with [...] LITTLE GFR LEFT ESRD GFR <15 ON MECHANICAL DRAWING TEACHER Procedures Date Code Description Status 09/20/2017 [id number] Colonoscopy Completed Medical Devices Description No Information Available Encounters Type Date Location Provider Dx Diagnosis Office Visit 02/14/2020 1:00p [facility] Dash Dia M.D. E83.51 Hypocalcemia [...] 1:30 pm - Dash Dia M.D. at [facility] 02/14/2020 - Dash Dia M.D.* [...] CONSULT FOR PARESTHESIAS Patient Notified 01/29 [address] [place] [address] [phone]
--- OUTSIDE RECORDS SUMMARY | 2020-04-25 20:44 | CCD | Continuity of Care Document ---
Author Author Branden ENGLISH M.D. Organization Unknown Address [address] [place] [address] Phone [phone] Care Team Providers Care Level Vial Sealer Name Role Phone Dash Dia M.D. AUTM [phone] Problems Active Problems Provider Date Paresthesia Suzie [...] needed 3units Dash Dia M.D. 02/01/2015 Nystatin-Triamcinolone 839878-8.1Unit/GM-% Cream use to affected areas (corner of [...] lb BMI (Body Mass Index) 34.4 kg/m2 [place] Body Weight 136 lb 11/09/2019 11:35am BP Systolic 128 mmHg BP Diastolic 80 mmHg Heart Rate 70 /min Height 65.5 inches Weight 214.00 lb BMI (Body Mass Index) 35.1 kg/m2 Results Test Acquired Date Facility Test Result H/L Range Note Laboratory test finding 02/02/2020 [facility] Erythrocyte Sedimentation Rate 45 mm/hr High 0-20 Immunotyping (Immunofixation) Serum (If 02/02/2020 [facility] It Serum Interpretation SEE COMMENT Normal 1 Its Pathologist Review REV'D BY lFaco ZALDIVAR <SEE NOTE> Normal 2 Serum Protein Electrophoresis 02/02/2020 [facility] Albumin % 48.9 % Low 55.8-66.1 Yvqim-2-Dxqjcalu % 5.8 % High 2.9-4.9 Xbmau-2-Wvnqpawvz % 14.7 % High 7.1-11.8 Vmqf-0-Cwvekdfqa % 8.5 % High 4.7-7.2 Vcak-2-Wqjitgyal % 6.1 % Normal 3.2-6.5 Gamma Globulin % 16.0 % Normal 11.1-18.8 Albumin 3.28 GM/DL Low 3.29-5.55 Dunai-5-Waxmaazrt 0.39 GM/DL Normal 0.17-0.41 Wsoua-4-Kicsldzoi 0.98 GM/DL Normal 0.42-0.99 Xecu-5-Tinrcuvvk 0.57 GM/DL Normal 0.28-0.60 Ucbr-1-Yzbcuxqjy 0.41 GM/DL Normal 0.19-0.55 Gamma Globulins 1.07 GM/DL Normal 0.65-1.58 Total Protein 6.7 GM/DL Normal 6.4-8.2 Spep Interpretation SEE COMMENT Normal 3 Spep Pathologist Review REV'D BY Flaco ZALDIVAR <SEE NOTE> Normal 4 Thyroid Profile 02/02/2020 [facility] T Uptake 34 % Normal 30-39 Thyroxine (T4) 12.0 g/dL Normal 4.5-12.0 Free Thyroxine Index 4.1 % Normal 1.3-4.8 Thyroid Stimulating Hormone 0.954 uIU/ML Normal 0.358-3.740 FT4&TSH Panel 02/02/2020 [facility] Free T4 1.42 ng/dL Normal 0.76-1.46 Vitamin B12 & Folate 02/02/2020 [facility] Vitamin B12 Level 400 pg/mL Normal 5 Folate 6.2 NG/ML Normal 6 Laboratory test finding 02/02/2020 [facility] Rheumatoid Factor Quant < 10.0 IU/mL Normal <15.0 Complete Blood Count 11/09/2019 N2N/CCD Import WBC [...] N2N/CCD Import Hba1c 6.5 g/dL High 4.8-5.6 7 Est Avg Glucose 140 mg/dL High 60-110 Comprehensive Chem Profile 11/09/2019 N2N/CCD Impor t Glucose 154 mg/dL High 74-99 8 BUN 5 mg/dL Low 7-18 Creatinine 0.7 mg/dL 0.6-1.3 Sodium 142 mEq/L 136-145 Potassium 3.8 mEq/L 3.5-5.1 Chloride 104 mEq/L 98-107 Carbon Dioxide 31 mEq/L 21-32 Calcium 8.1 mg/dL Low 8.5-10.1 9 Alk. Phosphatase 70 mg/dL 46-116 Total Bilirubin 0.3 mg/dL 0.2-1.0 Ast (Sgot) 78 U/L High 15-37 10 Alt (SGPT) 77 U/L 12-78 Albumin 2.9 g/dL Low 3.4-5.0 11 Total Protein 7.2 g/dL 6.4-8.2 A/G Ratio 0.67 CALC Low 1.00-1.90 GFR >= 60 mL/min GFR >= 60 mL/min 12 Lipid Profile 11/09/2019 N2N/CCD Import Cholesterol 202 [...] NG/ML DEFICIENT LESS THAN 3.4 NG/ML 7 Lab Result Notes: Pre-Diabetes 5.7 - [...] LITTLE GFR LEFT ESRD GFR <15 ON DIRECTOR OF ACQUISITION MARKETING Procedures Description No Information Available Medical Devices Description No Information Available Encounters Type Date Location Provider Dx Diagnosis Office Visit 01/30/2020 9:00a Main office - [place] Suzie stern M.D. R20.2 Paresthesia of skin Assessments Date Code Description Provider 01/30/2020 R20.2 Paresthesia of skin Suzie stern M.D. Plan of Treatment Future Appointment(s):* 05/06/2020 1:30 pm - Suzie English M.D. at [facility] * 02/14/2020 9:30 am - Suzie English M.D. at [facility] Functional Status Description No Information Available Mental Status Description No Information Available Referrals Description No Information Available
--- OUTSIDE RECORDS SUMMARY | 2020-04-25 20:44 | CCD | Continuity of Care Document ---
Author Author Kesha/Branden BRITT Organization Unknown Address [address] [place] [address] Phone [phone] Care Team Providers Care Ruby Engineer Name Role Phone Dash Dia M.D. AUTM [phone] Problems Active Problems Provider Date Paresthesia Suzie [...] by mouth every day 30tabs Kindra Balderas A.NAwais 02/23/2019 Diflucan 150mg Tablets 1 by mouth [...] needed 3units Dash Dia M.D. 02/01/2015 Nystatin-Triamcinolone 217435-6.1Unit/GM-% Cream use to affected areas (corner of [...] lb BMI (Body Mass Index) 34.4 kg/m2 [place] Body Weight 136 lb 11/09/2019 11:35am BP Systolic 128 mmHg BP Diastolic 80 mmHg Heart Rate 70 /min Height 65.5 inches Weight 214.00 lb BMI (Body Mass Index) 35.1 kg/m2 Results Test Acquired Date Facility Test Result H/L Range Note Laboratory test finding 02/02/2020 [facility] Erythrocyte Sedimentation Rate 45 mm/hr High 0-20 Immunotyping (Immunofixation) Serum (If 02/02/2020 [facility] It Serum Interpretation SEE COMMENT Normal 1 Its Pathologist Review REV'D BY Flaco ZALDIVAR <SEE NOTE> Normal 2 Serum Protein Electrophoresis 02/02/2020 [facility] Albumin % 48.9 % Low 55.8-66.1 Pveqg-4-Atmlcuyi % 5.8 % High 2.9-4.9 Xmbxr-5-Inizwghzl % 14.7 % High 7.1-11.8 Acez-9-Tacjeflrs % 8.5 % High 4.7-7.2 Hwvx-7-Vkvijmdav % 6.1 % Normal 3.2-6.5 Gamma Globulin % 16.0 % Normal 11.1-18.8 Albumin 3.28 GM/DL Low 3.29-5.55 Enywr-7-Fwioilgku 0.39 GM/DL Normal 0.17-0.41 Uuokv-4-Dsqsdelqe 0.98 GM/DL Normal 0.42-0.99 Iijd-2-Vdlgtbfzz 0.57 GM/DL Normal 0.28-0.60 Vtcc-6-Dcaopzyyn 0.41 GM/DL Normal 0.19-0.55 Gamma Globulins 1.07 GM/DL Normal 0.65-1.58 Total Protein 6.7 GM/DL Normal 6.4-8.2 Spep Interpretation SEE COMMENT Normal 3 Spep Pathologist Review REV'D BY Flaco ZALDIVAR <SEE NOTE> Normal 4 Thyroid Profile 02/02/2020 [facility] T Uptake 34 % Normal 30-39 Thyroxine (T4) 12.0 g/dL Normal 4.5-12.0 Free Thyroxine Index 4.1 % Normal 1.3-4.8 Thyroid Stimulating Hormone 0.954 uIU/ML Normal 0.358-3.740 FT4&TSH Panel 02/02/2020 [facility] Free T4 1.42 ng/dL Normal 0.76-1.46 Vitamin B12 & Folate 02/02/2020 [facility] Vitamin B12 Level 400 pg/mL Normal 5 Folate 6.2 NG/ML Normal 6 Laboratory test finding 02/02/2020 [facility] Rheumatoid Factor Quant < 10.0 IU/mL [...] LITTLE GFR LEFT ESRD GFR <15 ON BROADCAST CORRESPONDENT Procedures Date Code Description Status 02/07/2020 37253 Sympathetic Skin Responses Compl eted 02/07/2020 44119 Sympathetic Skin Responses Compl eted 02/07/2020 04020 Test Autonomic Nervous System, C ardiovagal Innervation Completed 02/07/2020 05004 Test Autonomic Nervous System, C ardiovagal Innervation Completed 02/07/2020 47739 Nerve Conduction 13+ Studies Com pleted 02/07/2020 25910 Needle Electromyography Complete , Five Or More Muscles Studied Completed 02/07/2020 39150 Needle Electromyography Complete , Five Or More Muscles Studied Completed 02/07/2020 14088 Artery Study Extremity Mult Leve ls Bilateral Completed 02/07/2020 12031 Artery Study Extremity Mult Leve ls Bilateral Completed 02/07/2020 48151 Artery Study Extremity Mult Leve ls Bilateral Completed 02/07/2020 01299 Artery Study Extremity Mult Leve ls Bilateral Completed Medical Devices Description No Information Available Encounters Type Date Location Provider Dx Diagnosis Office Visit 01/30/2020 9:00a Main office - [place] Suzie stern M.D. R20.2 Paresthesia of skin Assessments Date Code Description Provider 02/07/2020 E11.40 Type 2 diabetes nora itus [...] 1:30 pm - Suzie Gonzales M.D. at [facility] * 02/14/2020 9:30 am - Suzie Gonzaels M.D. at [facility] Functional Status Description No Information Available Mental Status Description No Information Available Referrals Description No Information Available
--- OUTSIDE RECORDS SUMMARY | 2020-04-25 20:44 | CCD | Continuity of Care Document ---
Author Author Branden ENGLISH M.D. Organization Unknown Address [address] [place] [address] Phone [phone] Care Team Providers Care Chain Mender Name Role Phone Dash Dia M.D. AUTM [phone] Problems Active Problems Provider Date Paresthesia Suzie [...] needed 3units Dash Dia M.D. 02/01/2015 Nystatin-Triamcinolone 392364-0.1Unit/GM-% Cream use to affected areas (corner of [...] lb BMI (Body Mass Index) 34.4 kg/m2 [place] Body Weight 136 lb 11/09/2019 11:35am BP Systolic 128 mmHg BP Diastolic 80 mmHg Heart Rate 70 /min Height 65.5 inches Weight 214.00 lb BMI (Body Mass Index) 35.1 kg/m2 Results Test Acquired Date Facility Test Result H/L Range Note Complete Blood Count 11/09/2019 N2N/CCD Import WBC [...] N2N/CCD Import Hba1c 6.5 g/dL High 4.8-5.6 1 Est Avg Glucose 140 mg/dL High 60-110 Comprehensive Chem Profile 11/09/2019 N2N/CCD Impor t Glucose 154 mg/dL High 74-99 2 BUN 5 mg/dL Low 7-18 Creatinine 0.7 mg/dL 0.6-1.3 Sodium 142 mEq/L 136-145 Potassium 3.8 mEq/L 3.5-5.1 Chloride 104 mEq/L 98-107 Carbon Dioxide 31 mEq/L 21-32 Calcium 8.1 mg/dL Low 8.5-10.1 3 Alk. Phosphatase 70 mg/dL 46-116 Total Bilirubin 0.3 mg/dL 0.2-1.0 Ast (Sgot) 78 U/L High 15-37 4 Alt (SGPT) 77 U/L 12-78 Albumin 2.9 g/dL Low 3.4-5.0 5 Total Protein 7.2 g/dL 6.4-8.2 A/G Ratio 0.67 CALC Low 1.00-1.90 GFR >= 60 mL/min GFR >= 60 mL/min 6 Lipid Profile 11/09/2019 N2N/CCD Import Cholesterol 202 mg/dL High 131-200 Triglycerides 95 mg/dL 30-150 HDL Cholesterol 42 mg/dL 35-60 LDL (Calculated) 141 CALC 50-159 Microalbumin/Creatinine Urine 11/09/2019 N2N/CCD Im port Microalbumin Urine 5.9 mg/L 1.3-20.0 Urine Creatinine 50.5 mg/dL 30.0-125.0 Microalb/Creat Ratio 11.7 ug/mg 0.0-30.0 1 Lab Result Notes: Pre-Diabetes 5.7 - 6.4 % Diabetes = or > 6.5% 2 100-125 mg/dL PRE-DIABET ES/FASTING >126 mg/dL DIABETES/FASTING 3 NOTE: RESULT VERIFIED. 4 NOTE: RESULT VERIFIED. 5 NOTE: RESULT VERIFIED. 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 at [facility] * 04/17/2020 1:30 pm - Ans/VS at [facility] * 02/14/2020 9:30 am - Suzie English M.D. at [facility] * 02/07/2020 9:30 am - Suzie English M.D. at [facility] Functional Status Description No Information Available Mental Status Description No Information Available Referrals Description No Information Available
--- OUTSIDE RECORDS SUMMARY | 2020-04-25 20:44 | CCD | Continuity of Care Document ---
Author Author Branden ENGLISH M.D. Organization Unknown Address [address] [place] [address] Phone [phone] Care Team Providers Care Background Check Coordinator Name Role Phone Dash Dia M.D. AUTM [phone] Problems Active Problems Provider Date Paresthesia Suzie [...] needed 3units Dash Dia M.D. 02/01/2015 Nystatin-Triamcinolone 259774-3.1Unit/GM-% Cream use to affected areas (corner of [...] lb BMI (Body Mass Index) 34.4 kg/m2 [place] Body Weight 136 lb 11/09/2019 11:35am BP Systolic 128 mmHg BP Diastolic 80 mmHg Heart Rate 70 /min Height 65.5 inches Weight 214.00 lb BMI (Body Mass Index) 35.1 kg/m2 Results Test Acquired Date Facility Test Result H/L Range Note Laboratory test finding 02/02/2020 [facility] Erythrocyte Sedimentation Rate 45 mm/hr High 0-20 Immunotyping (Immunofixation) Serum (If 02/02/2020 [facility] It Serum Interpretation SEE COMMENT Normal 1 Its Pathologist Review REV'D BY Flaco ZALDIVAR <SEE NOTE> Normal 2 Serum Protein Electrophoresis 02/02/2020 [facility] Albumin % 48.9 % Low 55.8-66.1 Ajovn-0-Ejevdefp % 5.8 % High 2.9-4.9 Dopnj-2-Zmybjottl % 14.7 % High 7.1-11.8 Dzxs-8-Beslkebra % 8.5 % High 4.7-7.2 Cviz-8-Nvmbdbfcd % 6.1 % Normal 3.2-6.5 Gamma Globulin % 16.0 % Normal 11.1-18.8 Albumin 3.28 GM/DL Low 3.29-5.55 Autvb-3-Pxupjvhbm 0.39 GM/DL Normal 0.17-0.41 Khrjv-8-Sbqadsknd 0.98 GM/DL Normal 0.42-0.99 Qokl-8-Hnrvolfkh 0.57 GM/DL Normal 0.28-0.60 Bnkc-6-Fmaqzxfzi 0.41 GM/DL Normal 0.19-0.55 Gamma Globulins 1.07 GM/DL Normal 0.65-1.58 Total Protein 6.7 GM/DL Normal 6.4-8.2 Spep Interpretation SEE COMMENT Normal 3 Spep Pathologist Review REV'D BY Flaco ZALDIVAR <SEE NOTE> Normal 4 Thyroid Profile 02/02/2020 [facility] T Uptake 34 % Normal 30-39 Thyroxine (T4) 12.0 g/dL Normal 4.5-12.0 Free Thyroxine Index 4.1 % Normal 1.3-4.8 Thyroid Stimulating Hormone 0.954 uIU/ML Normal 0.358-3.740 FT4&TSH Panel 02/02/2020 [facility] Free T4 1.42 ng/dL Normal 0.76-1.46 Vitamin B12 & Folate 02/02/2020 [facility] Vitamin B12 Level 400 pg/mL Normal 5 Folate 6.2 NG/ML Normal 6 Laboratory test finding 02/02/2020 [facility] Rheumatoid Factor Quant < 10.0 IU/mL Normal <15.0 Vitamin E Level 02/02/2020 [facility] Vitamin E(Alpha Tocopherol) 8.7 mg/L Normal 7.0-25.1 Vitamin E(Gamma Tocopherol) 1.2 mg/L Normal 0.5-5.5 7 Laboratory test finding 02/02/2020 [facility] Vitamin B1 Level Whole Blood 97.5 nmol/L Normal 66.5-200.0 8 Vitamin B6,Pyridoxal Phosphate 2.6 ug/L Normal 2.0-32.8 9 Antinuclear Antibodies 02/02/2020 [facility] Antinuclear Antibodies Direct Negative Normal Negative [...] from National Health and Nutrition Examination Survey, 6376-7074. Individuals with alpha-tocopherol levels less than 5.0 mg/L are considered vitamin E deficient. 8 Specimen Comment: Test(s) 07 0141-Vitamin E(Alpha Tocopherol); 613937- Specimen Comment: Vitamin E(Gamma Tocopherol); 286125-Uxqmjhk B6; 059320- Specimen Comment: Vit. B1, Whole Blood Specimen Comment: was developed and its performance characteristics Specimen Comment: determined by [facility]. It has not been cleared or approved Specimen Comment: by the Food and Drug Administration. 9 Specimen Comment: Test(s) 07 0141-Vitamin E(Alpha Tocopherol); 284706- Specimen Comment: Vitamin E(Gamma Tocopherol); 335921-Pgmizxj B6; 140857- Specimen Comment: Vit. B1, Whole Blood Specimen Comment: was developed and its performance characteristics Specimen Comment: determined by [facility]. It has not been cleared or approved Specimen Comment: by the Food and Drug Administration. 10 Performed at: - [facility] [id number] Produce Team Member: Christy Hoover MD, Phone: [phone] Performed at: [facility] [id number] Produce Team Member: Bella Roca MD, Phone: [phone] Lab Result Notes: Pre-Diabetes 5.7 - [...] LITTLE GFR LEFT ESRD GFR <15 ON WINDOW FRAMER Procedures Date Code Description Status 02/07/2020 58639 Sympathetic Skin Responses Compl eted 02/07/2020 07003 Sympathetic Skin Responses Compl eted 02/07/2020 06215 Test Autonomic Nervous System, C ardiovagal Innervation Completed 02/07/2020 30336 Test Autonomic Nervous System, C ardiovagal Innervation Completed 02/07/2020 45608 Nerve Conduction 13+ Studies Com pleted 02/07/2020 59881 Needle Electromyography Complete , Five Or More Muscles Studied Completed 02/07/2020 76395 Needle Electromyography Complete , Five Or More Muscles Studied Completed 02/07/2020 74042 Artery Study Extremity Mult Leve ls Bilateral Completed 02/07/2020 26210 Artery Study Extremity Mult Leve ls Bilateral Completed 02/07/2020 95738 Artery Study Extremity Mult Leve ls Bilateral Completed 02/07/2020 23906 Artery Study Extremity Mult Leve ls Bilateral Completed Medical Devices Description No Information Available Encounters Type Date Location Provider Dx Diagnosis Office Visit 01/30/2020 9:00a Main office - [place] Suzie stern M.D. R20.2 Paresthesia of skin [...] Suzie English M.D. at Main office - [place] Functional Status Description No Information Available Mental Status Description No Information Available Referrals Description No Information Available
--- OUTSIDE RECORDS SUMMARY | 2020-04-25 20:44 | CCD | Continuity of Care Document ---
Author Author Branden ENGLISH M.D. Organization Unknown Address [address] [place] [address] Phone [phone] Care Team Providers Care Drag Sawyer Name Role Phone Dash Dia M.D. AUTM [phone] Problems Active Problems Provider Date Paresthesia Suzie [...] needed 3units Dash Dia M.D. 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 Suzie stern M.D. R20.2 Paresthesia of skin Assessments Date Code Description Provider 01/30/2020 R20.2 Paresthesia of skin Suzie stern M.D. Plan of Treatment Future Appointment(s):* 02/07/2020 10:15 am - Ans/VS at [facility] * 02/02/2020 9:15 am - Ans/VS at [facility] * 05/06/2020 1:30 pm - Suzie English M.D. at [facility] * 02/14/2020 9:30 am - Suzie English M.D. at [facility] * 02/07/2020 9:30 am - Suzie English M.D. at [facility] Functional Status Description No Information Available Mental Status Description No Information Available Referrals Description No Information Available
--- OUTSIDE RECORDS SUMMARY | 2020-04-25 20:44 | CCD | Continuity of Care Document ---
Author Author Lab ScheduleBranden Organization Unknown Address [address] [place] [address] Phone Unavailable Care Team Providers Care Child Care Associate Name Role Phone Dash Dia MD AUTM [phone] Problems Active Problems Provider Date Overweight Onset: [...] 4 days 6tabs Jeancarlos Dia M.D. 07/18/2019 Celexa 20mg Tablets 1 by mouth every day 30tabs [facility] 02/23/2019 Diflucan 150mg Tablets 1 by mouth [...] Capsules DR 1 by mouth every day 90salazar Dia M.D. 02/01/2015 Levothyroxine Sodium 100mcg Soluti on Rec 1 by mouth every day 90units Dash Dia M.D. 02/02/20 15 Zyrtec Allergy 10mg Tablets 1 by mouth every day 30tabs Dash Dia M.D. 02/01/2015 Mucinex Tablets 1 by mouth twice a day as needed congestion Dash Dia M.D. 5 Ventolin HFA 108(90Base) mcg/Act A erosol 2 puffs four times a day as needed 3units Dash Dia M.D. 02/01/2015 Multivitamins Capsules 1 by mouth every day 30caprodrigo Dia M.D. 02/01/2015 Nystatin-Triamcinolone 550011-7.1Unit/GM-% Cream use to affected areas (corner of mouth) twice a day. 60Gram Dash Dia M.D. 02/01/2015 Lisinopril 10mg Tablets 1 by mouth every day 90tabs Dash Dia M.D. 11/16/2014 History Medications Prednisone 20mg Tablets 3 tabs x 3 days, then 2 tabs x3 days then 1 tab x 3 days then 1/2 tab x 4 days. 20tabs Dash Dia M.D. 11/09/2019 - 01/12/2020 Administration Of Flu Vaccine Inj ection Unknown Immunizations CPT Code Status Date Vaccine Lot # U-Flu Given 01/29/2018 Influenza,Unspecified Q2037 Given 02/01/2015 Fluvirin Virus Vaccine 71353 01 67183 Given 01/11/2014 Influenza Virus Vaccine 19100 Given 01/09/2013 Influenza Virus Vaccine 66943 Given 01/09/2013 Influenza Virus Vaccine 40423 Given 02/02/2012 Influenza Virus Vaccine 24838 Given 01/16/2009 Influenza Virus Vaccine Vital Signs Date Vital Result Comment 11/09/2019 11:35am BP Systolic 128 mmHg BP Diastolic 80 mmHg Heart Rate 70 /min Height 65.5 inches 5'5.50" Weight 214.00 lb BMI (Body Mass Index) 35.1 kg/m2 08/08/2019 1:21pm BP Systolic 140 mmHg BP Diastolic 80 mmHg Heart Rate 76 /min Height 65.5 inches 5'5.50" Weight 213.12 lb BMI (Body Mass Index) 34.9 kg/m2 Results Test Acquired Date Facility Test Result H/L Range Note Complete Blood Count 11/09/2019 [facility] Gypsum Calciner: Dr Cruzito Moralez [place], [place] [id number] [phone] WBC 9.6 x10*3/UL 4.1 - 10.9 RBC [...] 6.1 x10*3/UL 2.0 - 7.8 A1c 11/09/2019 [facility] , Gypsum Calciner: Dr Cruzito Moralez [place] [id number] [phone] Hba1c 6.5 g/dL High 4.8 - 5.6 1 Est Avg Glucose 140 mg/dL High 60 - 110 Comprehensive Chem Profile 11/09/2019 [facility], Gypsum Calciner: Dr Cruzito Moralez [place] [id number] [phone] Glucose 154 mg/dL High 74 - 99 2 BUN 5 mg/dL Low 7 - 18 Creatinine 0.7 mg/dL 0.6 - 1.3 Sodium 142 mEq/L 136 - 145 Potassium 3.8 mEq/L 3.5 - 5.1 Chloride 104 mEq/L 98 - 107 Carbon Dioxide 31 mEq/L 21 - 32 Calcium 8.1 mg/dL Low 8.5 - 10.1 3 Alk. Phosphatase 70 mg/dL 46 - 116 Total Bilirubin 0.3 mg/dL 0.2 - 1.0 Ast (Sgot) 78 U/L High 15 - 37 4 Alt (SGPT) 77 U/L 12 - 78 Albumin 2.9 g/dL Low 3.4 - 5.0 5 Total Protein 7.2 g/dL 6.4 - 8.2 A/G Ratio 0.67 CALC Low 1.00 - 1.90 GFR >= 60 mL/min >60 GFR >= 60 mL/min >60 6 Lipid Profile 11/09/2019 [facility] [place]psum Calciner: [place] [address] [phone] Cholesterol 202 mg/dL High 131 - 200 Triglycerides 95 mg/dL 30 - 150 HDL Cholesterol 42 mg/dL 35 - 60 LDL (Calculated) 141 CALC 50 - 159 Microalbumin/Creatinine Urine 11/09/2019 [facility] [place]psum Calciner: Dr [place]ito [place], [place] [id number] [phone] Microalbumin Urine 5.9 mg/L 1.3 - 20.0 [...] LITTLE GFR LEFT ESRD GFR <15 ON HAT MODEL Procedures Date Code Description Status 09/20/2017 23664843 Colonoscopy Completed Medical Devices Description No Information [...] tion Dash Dia M.D. Plan of Treatment 08/08/2019 - Dash Dia M.D.* I10 Essential (primary) hypertension * F17.210 Nicotine dependence, cigarettes, uncomplicated * E11.65 Type 2 diabetes mellitus with hyperglycemia * J45.998 Other asthma * J30.9 Allergic rhinitis, unspecified * E03.9 Hypothyroidism, unspecified * K76.0 Fatty (change of) liver, not elsewhere classified * R20.8 Other disturbances of skin sensation * Functional Status Description No Information Available Mental Status Description No Information Available Referrals Refer to Reason for Referral Status Appt Date Marcela Dobbs MD CONSULT FOR PARESTHESIAS Patient Notified 01/29 [address] [place] [id number] [phone]
--- OUTSIDE RECORDS SUMMARY | 2020-04-25 20:44 | CCD | Continuity of Care Document ---
Author Author Branden DIA M.D. Organization Unknown Address [address] [facility] [address] [place] [address] Phone [phone] Care Team Providers Care Dat Instructor Name Role Phone Dash Dia MD [facility] [phone] Problems Active Problems Provider Date Overweight Onset: [...] daily 16units Dash angulo M.D. 08/20/2017 Nystatin-Triamcinolone 254397-3.1Unit/GM-% Cream use to affected areas (corner of [...] DR 1 by mouth every day 90caps Dsah Dia M.D. 02/01/2015 Lisinopril 10mg Tablets 1 [...] Influenza,Unspecified Q2037 Given 02/01/2015 Fluvirin Virus Vaccine 27926 01 00648 Given 01/11/2014 Influenza Virus Vaccine 02039 Given 01/09/2013 Influenza Virus Vaccine 04878 Given 01/09/2013 Influenza Virus Vaccine 85224 Given 02/02/2012 Influenza Virus Vaccine 17515 Given 01/16/2009 Influenza Virus Vaccine Vital Signs [...] Test Result H/L Range Note A1c 02/14/2020 [facility] Abe Teacher: Dr Cruzito Moraelz [place], [place] [id number] [phone] Hba1c 6.2 % High <5.7 1 Est Avg Glucose 131 mg/dL High 60 - 110 Comprehensive Chem Profile 02/14/2020 [facility] Abe Teacher: [place] [address] [phone] Glucose 133 mg/dL High 74 - 99 [...] mL/min >60 4 Complete Blood Count 11/09/2019 [facility] Abe Teacher: [place] [address] [phone] WBC 9.6 x10*3/UL 4.1 - 10.9 RBC [...] 6.1 x10*3/UL 2.0 - 7.8 A1c 11/09/2019 [facility] Abe Teacher: [place] [address] [phone] Hba1c 6.5 g/dL High 4.8 - 5.6 5 Est Avg Glucose 140 mg/dL High 60 - 110 Comprehensive Chem Profile 11/09/2019 [facility] Abe Teacher: [place] [address] [phone] Glucose 154 mg/dL High 74 - 99 [...] 60 mL/min >60 10 Lipid Profile 11/09/2019 [facility] , Abe Teacher: [place] [address] [phone] Cholesterol 202 mg/dL High 131 - 200 Triglycerides 95 mg/dL 30 - 150 HDL Cholesterol 42 mg/dL 35 - 60 LDL (Calculated) 141 CALC 50 - 159 Microalbumin/Creatinine Urine 11/09/2019 [facility], Abe Teacher: [place] [address] [phone] Microalbumin Urine 5.9 mg/L 1.3 - 20.0 [...] LITTLE GFR LEFT ESRD GFR <15 ON HOTEL CONCIERGE 5 Lab Result Notes: Pre-Diabetes 5.7 - [...] LITTLE GFR LEFT ESRD GFR <15 ON HOTEL CONCIERGE Procedures Date Code Description Status 09/20/2017 [id number] Colonoscopy Completed Medical Devices Description No Information [...] CONSULT FOR PARESTHESIAS Patient Notified 01/29 [address] [place] [address] [phone]
--- OUTSIDE RECORDS SUMMARY | 2020-04-25 20:44 | CCD | Continuity of Care Document ---
Author Author Kesha/Branden BRITT Organization Unknown Address [address] [place] [address] Phone [phone] Care Team Providers Care Wire Roller Name Role Phone Dash Dia M.D. AUTM [phone] Problems Active Problems Provider Date Paresthesia Suzie [...] needed 3units Dash Dia M.D. 02/01/2015 Nystatin-Triamcinolone 762490-5.1Unit/GM-% Cream use to affected areas (corner of [...] lb BMI (Body Mass Index) 34.4 kg/m2 [place] Body Weight 136 lb 11/09/2019 11:35am BP Systolic 128 mmHg BP Diastolic 80 mmHg Heart Rate 70 /min Height 65.5 inches Weight 214.00 lb BMI (Body Mass Index) 35.1 kg/m2 Results Test Acquired Date Facility Test Result H/L Range Note Laboratory test finding 02/02/2020 [facility] Erythrocyte Sedimentation Rate 45 mm/hr High 0-20 Immunotyping (Immunofixation) Serum (If 02/02/2020 [facility] It Serum Interpretation SEE COMMENT Normal 1 Its Pathologist Review REV'D BY Flaco ZALDIVAR <SEE NOTE> Normal 2 Serum Protein Electrophoresis 02/02/2020 [facility] Albumin % 48.9 % Low 55.8-66.1 Fksij-8-Qoiwckyz % 5.8 % High 2.9-4.9 Riddv-2-Ziwsxvbpr % 14.7 % High 7.1-11.8 Obei-7-Fbqhbuhje % 8.5 % High 4.7-7.2 Jtii-9-Juhiwurfm % 6.1 % Normal 3.2-6.5 Gamma Globulin % 16.0 % Normal 11.1-18.8 Albumin 3.28 GM/DL Low 3.29-5.55 Oxcfi-1-Ovgaskaea 0.39 GM/DL Normal 0.17-0.41 Txwkj-5-Eyqqmszvf 0.98 GM/DL Normal 0.42-0.99 Oyjn-9-Bvynawnzr 0.57 GM/DL Normal 0.28-0.60 Ntju-5-Tprzcvivk 0.41 GM/DL Normal 0.19-0.55 Gamma Globulins 1.07 GM/DL Normal 0.65-1.58 Total Protein 6.7 GM/DL Normal 6.4-8.2 Spep Interpretation SEE COMMENT Normal 3 Spe[facility] Pathologist Review REV'D BY Flaco ZALDIVAR <SEE NOTE> Normal 4 Thyroid Profile 02/02/2020 [facility] T Uptake 34 % Normal 30-39 Thyroxine (T4) 12.0 g/dL Normal 4.5-12.0 Free Thyroxine Index 4.1 % Normal 1.3-4.8 Thyroid Stimulating Hormone 0.954 uIU/ML Normal 0.358-3.740 FT4&TSH Panel 02/02/2020 [facility] Free T4 1.42 ng/dL Normal 0.76-1.46 Vitamin B12 & Folate 02/02/2020 [facility] Vitamin B12 Level 400 pg/mL Normal 5 Folate 6.2 NG/ML Normal 6 Laboratory test finding 02/02/2020 [facility] Rheumatoid Factor Quant < 10.0 IU/mL [...] LITTLE GFR LEFT ESRD GFR <15 ON RETREAD OPERATOR Procedures Description No Information Available Medical Devices Description No Information Available Encounters Type Date Location Provider Dx Diagnosis Office Visit 01/30/2020 9:00a Main office - [place] Samah Mohiud din, M.D. R20.2 Paresthesia of skin Assessments Date Code Description Provider 01/30/2020 R20.2 Paresthesia of skin Suzie stern M.D. Plan of Treatment Future Appointment(s):* 05/06/2020 1:30 pm - Suzie Gonzales M.D. at [facility] * 02/14/2020 9:30 am - Suzie Gonzales M.D. at [facility] Functional Status Description No Information Available Mental Status Description No Information Available Referrals Description No Information Available
[2020-04-25] MEDS ORDERED: MAG SULF 1GM/100ML (MAG RUN) 1 GM in IV 1 EA IV ONE (20:45)
--- OUTSIDE RECORDS SUMMARY | 2020-04-25 20:45 | CCD ---
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 Name Role Phone Romeo Dia MD Unavailable Unavailable Romeo Dia MD Unavailable Unavailable Romeo Dia MD Unavailable Unavailable Romeo Dia MD Unavailable Unavailable Romeo Dia MD Unavailable Unavailable Romeo Dia MD Unavailable Unavailable Romeo Dia MD Unavailable Unavailable Romeo Dia MD Unavailable Unavailable Romeo Dia MD Unavailable Unavailable Romeo Dia MD Unavailable Unavailable Romeo Dia MD Unavailable Unavailable Romeo Dia MD Unavailable Unavailable Romeo Dia MD Unavailable Unavailable Romeo Dia MD Unavailable Unavailable Romeo Dia MD Unavailable Unavailable Romeo Dia MD Unavailable Unavailable Romeo Dia MD Unavailable Unavailable Romeo Dia MD Unavailable Unavailable Romeo Dia MD Unavailable Unavailable Romeo Dia MD Unavailable Unavailable Romeo Dia MD Unavailable Unavailable Romeo Dia MD Unavailable Unavailable Romeo Dia MD Unavailable Unavailable Romeo Dia MD Unavailable Unavailable Romeo Dia MD Unavailable Unavailable Romeo Dia MD Unavailable Unavailable Romeo Dia MD Unavailable Unavailable Romeo Dia MD Unavailable Unavailable Romeo Dia MD Unavailable Unavailable Romeo Dia MD Unavailable Unavailable Romeo Dia MD Unavailable Unavailable Romeo Dia MD Unavailable Unavailable Romeo Dia MD Unavailable Unavailable Romeo Dia MD Unavailable Unavailable White, F Dash MD Unavailable Unavailable White, F Dash MD Unavailable Unavailable White, F Dash MD Unavailable Unavailable White, F Dash MD Unavailable Unavailable White, F Dash MD Unavailable Unavailable White, F Dash MD Unavailable Unavailable White, F Dash MD Unavailable Unavailable White, F Dash MD Unavailable Unavailable White, F Dash MD Unavailable Unavailable White, F Dash MD Unavailable Unavailable White, F Dash MD Unavailable Unavailable White, F Dash MD Unavailable Unavailable White, F Dash MD Unavailable Unavailable White, F Dash MD Unavailable Unavailable White, F Dash MD Unavailable Unavailable White, F Dash MD Unavailable Unavailable White, F Dash MD Unavailable Unavailable White, F Dash MD Unavailable Unavailable White, F Dash MD Unavailable Unavailable White, F Dash MD Unavailable Unavailable White, F Dash MD Unavailable Unavailable White, F Dash MD Unavailable Unavailable White, F Dash MD Unavailable Unavailable White, F Dash MD Unavailable Unavailable White, F Dash MD Unavailable Unavailable White, F Dash MD Unavailable Unavailable White, F Dash MD Unavailable Unavailable White, F Dash MD Unavailable Unavailable White, F Dash MD Unavailable Unavailable White, F Dash MD Unavailable Unavailable White, F Dash MD Unavailable Unavailable White, F Dash MD Unavailable Unavailable White, F Dash MD Unavailable Unavailable White, F Dash MD Unavailable Unavailable White, F Dash MD Unavailable Unavailable White, F Dash MD Unavailable Unavailable White, F Dash MD Unavailable Unavailable White, F Dash MD Unavailable Unavailable White, F Dash MD Unavailable Unavailable RING, K ANJANA PA Unavailable Unavailable RING, K ANJANA PA Unavailable Unavailable RING, K ANJANA PA Unavailable Unavailable RING, K ANJANA PA Unavailable Unavailable RING, K ANJANA PA Unavailable Unavailable RING, K ANJANA PA Unavailable Unavailable RING, K ANJANA PA Unavailable Unavailable RING, K ANJANA PA Unavailable Unavailable RING, K ANJANA PA Unavailable Unavailable RING, K ANJANA PA Unavailable Unavailable RING, K ANJANA PA Unavailable Unavailable RING, K ANJANA PA Unavailable Unavailable RING, K ANJANA PA Unavailable Unavailable RING, K ANJANA PA Unavailable Unavailable RING, K ANJANA PA Unavailable Unavailable RING, K ANJANA PA Unavailable Unavailable RING, K ANJANA PA Unavailable Unavailable RING, K ANJANA PA Unavailable Unavailable RING, K ANJANA PA Unavailable Unavailable RING, K ANJANA PA Unavailable Unavailable Chawla, Vashti BOTTOMING ROOM INSPECTOR Unavailable Unavailable Chawla, Vashti BOTTOMING ROOM INSPECTOR Unavailable Unavailable Chawla, Vashti BOTTOMING ROOM INSPECTOR Unavailable Unavailable Chawla, Vashti BOTTOMING ROOM INSPECTOR Unavailable Unavailable Chawla, Vashti BOTTOMING ROOM INSPECTOR Unavailable Unavailable Chawla, Vashti BOTTOMING ROOM INSPECTOR Unavailable Unavailable Chawla, Vashti BOTTOMING ROOM INSPECTOR Unavailable Unavailable Chawla, Vashti BOTTOMING ROOM INSPECTOR Unavailable Unavailable Chawla, Vashti BOTTOMING ROOM INSPECTOR Unavailable Unavailable Chawla, Vashti BOTTOMING ROOM INSPECTOR Unavailable Unavailable Chawla, Vashti BOTTOMING ROOM INSPECTOR Unavailable Unavailable Naomy Gonzales MD Unavailable Unavailable Naomy Gonzales MD Unavailable Unavailable Naomy Gonzales MD Unavailable Unavailable Naomy Gonzales MD Unavailable Unavailable Naomy Gonzales MD Unavailable Unavailable Naomy Gonzales MD Unavailable Unavailable Naomy Gonzales MD Unavailable Unavailable Naomy Gonzales MD Unavailable Unavailable Naomy Gonzales MD Unavailable Unavailable Naomy Gonzales MD Unavailable Unavailable Naomy Gonzales MD Unavailable Unavailable Naomy Gonzales MD Unavailable Unavailable Naomy Gonzales MD Unavailable Unavailable Naomy Gonzales MD Unavailable Unavailable Naomy Gonzales MD Unavailable Unavailable Naomy Gonzales MD Unavailable Unavailable Naomy Gonzales MD Unavailable Unavailable Naomy Gonzales MD Unavailable Unavailable Naomy Gonzales MD Unavailable Unavailable Naomy Gonzales MD Unavailable Unavailable Naomy Gonzlaes MD Unavailable Unavailable Naomy Gonzales MD Unavailable Unavailable Naomy Gonzales MD Unavailable Unavailable Naomy Gonzales MD Unavailable Unavailable Naomy Gonzales MD Unavailable Unavailable Naomy Gonzales MD Unavailable Unavailable Naomy Gonzales MD Unavailable Unavailable Naomy Gonzales MD Unavailable Unavailable Naomy Gonzales MD Unavailable Unavailable Naomy Gonzales MD Unavailable Unavailable Naomy Gonzales MD Unavailable Unavailable Naomy Gonzales MD Unavailable Unavailable Naomy Gonzales MD Unavailable Unavailable Naomy Gonzales MD Unavailable Unavailable Naomy Gonzales MD Unavailable Unavailable Naomy Gonzales MD Unavailable Unavailable Janet, O Samah MD Unavailable Unavailable Janet, O Samah MD Unavailable Unavailable Janet, O Samah MD Unavailable Unavailable Jnaet, O Samah MD Unavailable Unavailable Janet, O Samah MD Unavailable Unavailable Janet, O Samah MD Unavailable Unavailable Janet, O Samah MD Unavailable Unavailable Janet, O Samah MD Unavailable Unavailable Janet, O Samah MD Unavailable Unavailable Jnaet, O Samah MD Unavailable Unavailable Janet, O Samah MD Unavailable Unavailable Janet, O Samah MD Unavailable Unavailable Janet, O Samah MD Unavailable Unavailable Janet, O Samah MD Unavailable Unavailable Janet, O Samah MD Unavailable Unavailable Janet, O Samah MD Unavailable Unavailable Janet, O Samah MD Unavailable Unavailable Janet, O Samah MD Unavailable Unavailable Janet, O Samah MD Unavailable Unavailable Janet, O Samah MD Unavailable Unavailable Janet, O Samah MD Unavailable Unavailable Janet, O Samah MD Unavailable Unavailable Janet, O Samah MD Unavailable Unavailable Janet, O Samah MD Unavailable Unavailable Janet, O Samah MD Unavailable Unavailable Janet, O Samah MD Unavailable Unavailable Janet, O Samah MD Unavailable Unavailable Janet, O Samah MD Unavailable Unavailable Janet, O Samah MD Unavailable Unavailable Janet, O Samah MD Unavailable Unavailable Janet, O Samah MD Unavailable Unavailable Janet, O Samah MD Unavailable Unavailable Janet, O Samah MD Unavailable Unavailable Janet, O Samah MD Unavailable Unavailable Janet, O Samah MD Unavailable Unavailable Janet, O Samah MD Unavailable Unavailable Janet, O Samah MD Unavailable Unavailable Janet, O Samah MD Unavailable Unavailable Janet, O Samah MD Unavailable Unavailable Re-disclosure Warning The records that you are about to access may contain information from federally-assisted alcohol or drug abuse programs. If such information is present, then the following federally mandated warning applies: This information has been disclosed to you from records protected by federal confidentiality rules (42 CFR part 2). The federal rules prohibit you from making any further disclosure of this information unless further disclosure is expressly permitted by the written consent of the person to whom it pertains or as otherwise permitted by 42 CFR part 2. A general authorization for the release of medical or other information is NOT sufficient for this purpose. The Federal rules restrict any use of the information to criminally investigate or prosecute any alcohol or drug abuse patient.The records that you are about to access may contain highly sensitive health information, the redisclosure of which is protected by Article 27-F of the [facility] Public Health law. If you continue you may have access to information: Regarding HIV / AIDS; Provided by facilities licensed or operated by the [facility] Office of Mental Health; or Provided by the [facility] Office for People With Developmental Disabilities. If such information is present, then the following [facility] mandated warning applies: This information has been disclosed to you from confidential records which are protected by state law. State law prohibits you from making any further disclosure of this information without the specific written consent of the person to whom it pertains, or as otherwise permitted by law. Any unauthorized further disclosure in violation of state law may result in a fine or mcfp sentence or both. A general authorization for the release of medical or other information is NOT sufficient authorization for further disc losure. Family History Family Member Name Family Member Gender Family Member Status Date o f Status Description Data Source(s) Unknown Unknown Problem [facility] colon PCF, PF, mother Unknown Unknown Problem [facility] ([facility] Unknown Female Problem [facility] ([facility]) Encounters Encounter Providers Location Date Indications Data Source(s ) Outpatient Attender: Vashti Michel chikis 04/11/2020 03:00:00 PM EST [facility] ([facility]) Outpatient Attender: Dash Hodges 02/13 12:00:00 PM EST [facility] ([facility] ) Outpatient Attender: Suzie Gonzales MD [facility] office [facility] 01/30/2020 09:00:00 AM EDT [facility] ([facility], ) Outpatient Attender: ANJANA Dutta [facility] 04/24/2019 11:30:00 AM EST [facility] ([facility]) Medications Medication Brand Name Start Date Product Form Dose Route Admi nistrative Instructions Pharmacy Instructions Status Indications Reaction Description Data Source(s) 90 mcg/actuation 03/09/2020 12:00:00 AM EST HFA aerosol inha ler 18 INHALE 2 PUFFS FOUR TIMES A DAY NEEDED INHALE 2 PUFFS FOUR TIMES A DAY NEEDED SOLD: 03/09/2020 [facility] 1,250 mcg (50,000 unit) 02/15/2020 12:00:00 AM EST capsule 12 TAKE ONE CAPSULE BY MOUTH WEEKLY TAKE ONE CAPSULE BY MOUTH WEEKLY SOLD: 02/16/2020 [facility] 71.5 mg 02/15/2020 12:00:00 AM EST tablet,delayed release (DR/EC) 120 TAKE 2 TABLETS BY MOUTH TWO TIMES A DAY TAKE 2 TABLETS BY MOUTH TWO TIMES A DAY SOLD: 02/16/2020 [facility] Calcium Carbonate 298 MG / Magnesium Chl oride 596 MG Delayed Release Oral Tablet [Slow-Mag Reformulated May 2011] Slow-Mag 02/14/2020 12:00:00 AM EST ORAL active [facility] ([facility]) Ergocalciferol 99185 UNT Oral Capsule [Drisdol] Drisdol 02/14/2020 12:00:00 AM EST active [facility] ([facility]) 100 mcg 01/09/2020 12:00:00 AM EDT tablet 90 TAKE ONE TABLET BY MOUTH EVERY DAY TAKE ONE TABLET BY MOUTH EVERY DAY SOLD: 01/11/2020 [facility] 100 mcg 01/09/2020 12:00:00 AM EDT tablet 90 TAKE ONE TABLET BY MOUTH EVERY DAY TAKE ONE TABLET BY MOUTH EVERY DAY SOLD: 04/10/2020 [facility] 20 mg 11/09/2019 12:00:00 AM EDT tablet 20 TAKE 3 TABLETS BY MOUTH ONCE DAILY FOR 3 DAYS THEN 2 TABLETS ONCE DAILY FOR 3 DAYS THEN 1 TABLET ONCE DAILY FOR 3 DAYS THEN 1/2 TABLET ONCE DAILY FOR 4 DAYS TAKE 3 TABLETS BY MOUTH ONCE DAILY FOR 3 DAYS THEN 2 TABLETS ONCE DAILY FOR 3 DAYS THEN 1 TABLET ONCE DAILY FOR 3 DAYS THEN 1/2 TABLET ONCE DAILY FOR 4 DAYS SOLD: 11/09/2019 [facility] Prednisone 20 MG Oral Tablet Prednisone 11/09/2019 12:00:00 AM EDT completed [facility] Triamcinolone Acetonide 1 MG/ML Topical Cream Triamcinolone Acetonide 11/09/2019 12:00:00 AM EDT active [facility] ([facility], ) Triamcinolone Acetonide 1 MG/ML Topical Cream Triamcinolone Acetonide 11/09/2019 12:00:00 AM EDT active [facility] ([facility]) 0.1 % 11/09/2019 12:00:00 AM EDT cream 45 AAPLY TWO TIMES A DAY DIRECTED DO NOT OVERUSE,RISK OF ATROPHY.ONLY Y=USE ON INDIVIDUAL AREAS OF RASH AAPLY TWO TIMES A DAY DIRECTED DO NOT OVERUSE,RISK OF ATROPHY.ONLY Y=USE ON INDIVIDUAL AREAS OF RASH SOLD: 11/09/2019 [facility] 160-4.5 mcg/actuation 11/06/2019 12:00:00 AM EDT HFA aerosol inhaler 10 INHALE TWO PUFFS BY MOUTH TWICE A DAY INHALE TWO PUFFS BY MOUTH TWICE A DAY SOLD: 11/09/2019 [facility] 20 mg 10/31/2019 12:00:00 AM EDT capsule,delayed release (DR/EC) 90 TAKE ONE CAPSULE BY MOUTH EVERY DAY TAKE ONE CAPSULE BY MOUTH EVERY DAY SOLD: 04/10/2020 [facility] 20 mg 10/31/2019 12:00:00 AM EDT capsule,delayed release (DR/EC) 90 TAKE ONE CAPSULE BY MOUTH EVERY DAY TAKE ONE CAPSULE BY MOUTH EVERY DAY SOLD: 11/01/2019 [facility] 20 mg 10/31/2019 12:00:00 AM EDT capsule,delayed release (DR/EC) 90 TAKE ONE CAPSULE BY MOUTH EVERY DAY TAKE ONE CAPSULE BY MOUTH EVERY DAY SOLD: 01/11/2020 [facility] 60 ACTUAT Budesonide 0.16 MG/ACTUAT / fo rmoterol fumarate 0.0045 MG/ACTUAT Metered Dose Inhaler [Symbicort] Symbicort 10/30/2019 12:00:00 AM EDT RESPIRATORY active [facility] ( [facility]) 60 ACTUAT Budesonide 0.16 MG/ACTUAT / fo rmoterol fumarate 0.0045 MG/ACTUAT Metered Dose Inhaler [Symbicort] Symbicort 10/30/2019 12:00:00 AM EDT RESPIRATORY active [facility] ( [facility], ) 500 mg 08/09/2019 12:00:00 AM EDT tablet 90 TAKE ONE TABLET BY MOUTH EVERY MORNING TAKE ONE TABLET BY MOUTH EVERY MORNING SOLD: 08/10/2019 [facility] Metformin hydrochloride 500 MG Oral Tablet METFORMIN HCL 08/09/2019 12:00:00 AM EDT tablet 90 TAKE ONE TABLET BY MOUTH PRISCA RY MORNING TAKE ONE TABLET BY MOUTH EVERY MORNING SOLD: 02/04/2020 [facility] 2 mg 08/08/2019 12:00:00 AM EDT gum 110 USE A S REPLACEMENT FOR CIGARETTES USE REPLACEMENT FOR CIGARETTES SOLD: 08/09/2019 [facility] Nicotine 2 MG Chewing Gum Ra Nicotine Gum 08/08/2019 12:00:00 AM EDT active [facility] Nicotine 2 MG Chewing Gum Ra Nicotine Gum 08/08/2019 12:00:00 AM EDT active [facility] ([facility]) Metformin hydrochloride 500 MG Oral Tablet Metformin HCL 08/08/2019 12:00:00 AM EDT ORAL active [facility] ([facility]) 10 mg 07/18/2019 12:00:00 AM EDT tablet 90 TAKE ONE TABLET BY MOUTH EVERY DAY TAKE ONE TABLET BY MOUTH EVERY DAY SOLD: 04/10/2020 [facility] 10 mg 07/18/2019 12:00:00 AM EDT tablet 90 TAKE ONE TABLET BY MOUTH EVERY DAY TAKE ONE TABLET BY MOUTH EVERY DAY SOLD: 10/12/2019 [facility] 10 mg 07/18/2019 12:00:00 AM EDT tablet 90 TAKE ONE TABLET BY MOUTH EVERY DAY TAKE ONE TABLET BY MOUTH EVERY DAY SOLD: 01/11/2020 [facility] Zithromax Z-Roberto Zithromax Z-Roberto 07/18/2019 12:00:00 AM EDT ORAL active [facility] ([facility], ) 10 mg 07/18/2019 12:00:00 AM EDT tablet 90 TAKE ONE TABLET BY MOUTH EVERY DAY TAKE ONE TABLET BY MOUTH EVERY DAY SOLD: 07/18/2019 [facility] 250 mg 07/18/2019 12:00:00 AM EDT tablet 6 TAKE TWO TABLETS BY MOUTH AT ONCE ON THE FIRST DAY THEN TAKE ONE DAILY THEREAFTER TAKE TWO TABLETS BY MOUTH AT ONCE ON THE FIRST DAY THEN TAKE ONE DAILY THEREAFTER SOLD: 07/18/2019 [facility] Zithromax Z-Roberto Zithromax Z-Roberto 07/18/2019 12:00:00 AM EDT ORAL active [facility] 5 mg 04/24/2019 12:00:00 AM EST tablet 30 TAKE 1 TO 2 TABLETS BY MOUTH THREE TIMES A DAY NEEDED FOR MUSCLE SPASMS TAKE 1 TO 2 TABLETS BY MOUTH THREE TIMES A DAY NEEDED FOR MUSCLE SPASMS SOLD: 04/24/2019 [facility] 20 mg 04/24/2019 12:00:00 AM EST tablet 8 TAKE ONE TABLET BY MOUTH TWICE A DAY FOR 4 DAYS TAKE ONE TABLET BY MOUTH TWICE A DAY FOR 4 DAYS SOLD: 2019 [facility] Prednisone 20 MG Oral Tablet Prednisone 04/24/2019 12:00:00 AM EST active [facility] ([facility]) Cyclobenzaprine hydrochloride 5 MG Oral Tablet Cyclobenzapri ne HCL 04/24/2019 12:00:00 AM EST ORAL active M EDENT ([facility]) 20 mg 02/24/2019 12:00:00 AM EST tablet 30 TAKE ONE TABLET BY MOUTH EVERY DAY TAKE ONE TABLET BY MOUTH EVERY DAY SOLD: 03/10/2019 [facility] 90 mcg/actuation 02/15/2019 12:00:00 AM EST HFA aerosol inha ler 18 INHALE 2 PUFFS BY MOUTH FOUR TIMES A DAY NEEDED INHALE 2 PUFFS BY MOUTH FOUR TIMES A DAY NEEDED SOLD: 12/16/2019 [facility] 90 mcg/actuation 02/15/2019 12:00:00 AM EST HFA aerosol inha ler 18 INHALE 2 PUFFS BY MOUTH FOUR TIMES A DAY NEEDED INHALE 2 PUFFS BY MOUTH FOUR TIMES A DAY NEEDED SOLD: 09/17/2019 [facility] 90 mcg/actuation 02/15/2019 12:00:00 AM EST HFA aerosol inha ler 18 INHALE 2 PUFFS BY MOUTH FOUR TIMES A DAY NEEDED INHALE 2 PUFFS BY MOUTH FOUR TIMES A DAY NEEDED SOLD: 08/17/2019 [facility] 90 mcg/actuation 02/15/2019 12:00:00 AM EST HFA aerosol inha ler 18 INHALE 2 PUFFS BY MOUTH FOUR TIMES A DAY NEEDED INHALE 2 PUFFS BY MOUTH FOUR TIMES A DAY NEEDED SOLD: 01/27/2020 [facility] 90 mcg/actuation 02/15/2019 12:00:00 AM EST HFA aerosol inha ler 18 INHALE 2 PUFFS BY MOUTH FOUR TIMES A DAY NEEDED INHALE 2 PUFFS BY MOUTH FOUR TIMES A DAY NEEDED SOLD: 10/07/2019 [facility] 90 mcg/actuation 02/15/2019 12:00:00 AM EST HFA aerosol inha ler 18 INHALE 2 PUFFS BY MOUTH FOUR TIMES A DAY NEEDED INHALE 2 PUFFS BY MOUTH FOUR TIMES A DAY NEEDED SOLD: 07/21/2019 [facility] 90 mcg/actuation 02/15/2019 12:00:00 AM EST HFA aerosol inha ler 18 INHALE 2 PUFFS BY MOUTH FOUR TIMES A DAY NEEDED INHALE 2 PUFFS BY MOUTH FOUR TIMES A DAY NEEDED SOLD: 11/01/2019 [facility] 20 mg 02/03/2019 12:00:00 AM EDT tablet 20 TAKE 3 TABLETS BY MOUTH DAILY FOR 3 DAYS, 2 TABLETS DAILY FOR 3 DAYS, 1 TABLET DAILY FOR 3 DAYS THEN A HALF TABLET DAILY FOR 4 DAYS TAKE 3 TABLETS BY MOUTH DAILY FOR 3 DAYS , 2 TABLETS DAILY FOR 3 DAYS, 1 TABLET DAILY FOR 3 DAYS THEN A HALF TABLET DAILY FOR 4 DAYS SOLD: 04/14/2019 [facility] 100 mcg 01/18/2019 12:00:00 AM EDT tablet 90 TAKE ONE TABLET BY MOUTH EVERY DAY TAKE ONE TABLET BY MOUTH EVERY DAY SOLD: 04/14/2019 [facility] 100 mcg 01/18/2019 12:00:00 AM EDT tablet 90 TAKE ONE TABLET BY MOUTH EVERY DAY TAKE ONE TABLET BY MOUTH EVERY DAY SOLD: 10/12/2019 [facility] 100 mcg 01/18/2019 12:00:00 AM EDT tablet 90 TAKE ONE TABLET BY MOUTH EVERY DAY TAKE ONE TABLET BY MOUTH EVERY DAY SOLD: 07/18/2019 [facility] 20 mg 08/04/2018 12:00:00 AM EDT capsule,delayed release (DR/EC) 68 TAKE ONE CAPSULE BY MOUTH EVERY DAY TAKE ONE CAPSULE BY MOUTH EVERY DAY SOLD: 05/07/2019 [facility] 10 mg 08/04/2018 12:00:00 AM EDT tablet 90 TAKE ONE TABLET BY MOUTH EVERY DAY TAKE ONE TABLET BY MOUTH EVERY DAY SOLD: 04/14/2019 [facility] 20 mg 08/04/2018 12:00:00 AM EDT capsule,delayed release (DR/EC) 90 TAKE ONE CAPSULE BY MOUTH EVERY DAY TAKE ONE CAPSULE BY MOUTH EVERY DAY SOLD: 07/13/2019 [facility] Insurance Providers Payer name Policy type / Coverage type Policy ID Covered green party ID Covered green party's relationship to [place] Policy [place] Plan Information [facility] [id number] SP [id number] Umr Commercial [id number] Self [id number] [employer] (Old) Medigap Part B [id number] Self [id number] Umr (New [employer]) Commercial [id number] Self [id number] ANSI-Commercial [id number] [facility]MR [facility] [id number] SP [id number] [employer] [id number] SP [id number] Umr/[employer] Health Maintenance Organization (HMO) [id number] Self [id number] [employer] [id number] SP [id number] [employer] [id number] SP [id number] [employer] Commercial [id number] Self [id number] [employer] [id number] SP [id number] [employer] (HMO) [id number] Se lf [id number] [employer] [id number] SP [id number] [employer] Commercial Self [employer] Ppo Commercial [id number] Self [id number] [employer] PPO P [id number] S [id number] Problems, Conditions, and Diagnoses Code Display Name Description Problem Type Effective Dates Data Source(s) 78448309 Paresthesia Paresthesia Problem 01/30/2020 12:00:00 AM EDT [facility] ([facility], ) Surgeries/Procedures Procedure Description Date Indications Data Source(s) MRI BRAIN BRAIN STEM W/O CONTRAST MATERIAL 02/24/2020 12:00:00 AM EST [facility] ([facility], ) MRI BRAIN BRAIN STEM W/O CONTRAST MATERIAL 02/24/2020 12:00:00 AM EST [facility] ([facility], ) MRI SPINAL CANAL CERVICAL W/O CONTRAST MATRL 0 12:00:00 AM EST [facility] ([facility], ) MRI SPINAL CANAL CERVICAL W/O CONTRAST MATRL 0 12:00:00 AM EST [facility] ([facility], ) MRI Spine Thoracic W/O Contrast 02/24/2020 12:00:00 AM EST [facility] ([facility], ) MRI Spine Thoracic W/O Contrast 02/24/2020 12:00:00 AM EST [facility] ([facility], ) MRI SPINAL CANAL LUMBAR W/O CONTRAST MATERIAL 02/24/20 20 12:00:00 AM EST [facility] ([facility], ) Needle electromyography, each extremity, with related paraspinal areas, when performed, done with nerve conduction, amplitude and latency/velocity study; complete, five or more muscles studied, innervated by three or more nerves or four or more spinal levels (list separately in addition to the code for primary procedure). 02/14/2020 12:00:00 AM EST MEDEN T ([facility], ) Needle electromyography, each extremity, with related paraspinal areas, when performed, done with nerve conduction, amplitude and latency/velocity study; complete, five or more muscles studied, innervated by three or more nerves or four or more spinal levels (list separately in addition to the code for primary procedure). 02/14/2020 12:00:00 AM EST MEDEN T ([facility], ) 66239 Nerve conduction studies 13 or more studies NEW 201202/14/2020 12:00:00 AM EST [facility] ([facility] ) TESTING AUTONOMIC NERVOUS SYSTEM FUNCTION 02/07/2020 1 2:00:00 AM EDT [facility] ([facility], ) TESTING AUTONOMIC NERVOUS SYSTEM FUNCTION 02/07/2020 1 2:00:00 AM EDT MED[facility] ([facility], ) TSTG ANS FUNCJ CARDIOVAGAL INNERVAJ PARASYMP 0 12:00:00 AM EDT [facility] ([facility], ) TSTG ANS FUNCJ CARDIOVAGAL INNERVAJ PARASYMP 0 12:00:00 AM EDT MED[facility] ([facility], ) 98430 Nerve conduction studies 13 or more studies NEW 201202/07/2020 12:00:00 AM EDT [facility] ([facility] ) Needle electromyography, each extremity, with related paraspinal areas, when performed, done with nerve conduction, amplitude and latency/velocity study; complete, five or more muscles studied, innervated by three or more nerves or four or more spinal levels (list separately in addition to the code for primary procedure). 02/07/2020 12:00:00 AM EDT MEDEN T ([facility], ) Needle electromyography, each extremity, with related paraspinal areas, when performed, done with nerve conduction, amplitude and latency/velocity study; complete, five or more muscles studied, innervated by three or more nerves or four or more spinal levels (list separately in addition to the code for primary procedure). 02/07/2020 12:00:00 AM EDT MEDEN T ([facility], ) NON-INVASIVE PHYSIOLOGIC STUDY EXTREMITY 3 LEVLS 02/06 12:00:00 AM EDT [facility] ([facility], ) NON-INVASIVE PHYSIOLOGIC STUDY EXTREMITY 3 LEVLS 02/06 12:00:00 AM EDT [facility] Neurology, ) NON-INVASIVE PHYSIOLOGIC STUDY EXTREMITY 3 LEVLS 02/06 12:00:00 AM EDT [facility] ([facility], ) NON-INVASIVE PHYSIOLOGIC STUDY EXTREMITY 3 LEVLS 02/06 12:00:00 AM EDT [facility] ([facility], ) Results ID Date Data Source [id number] 04/11/2020 12:00:00 AM EST [facility] Name Value Range Interpretation Code Description Data Lia rce(s) Supporting Document(s) SARS coronavirus 2 Ag [facility] This lab was ordered by [facility] and reported by [facility]. ID Date Data Source [id number] 02/14/2020 09:15:00 AM EST [facility] ([facility]) Name Value Range Interpretation Code Description Data Lia rce(s) Supporting Document(s) Calcidiol [Mass/volume] in Serum or Plasma 15.4 24.0-80.0 [facility] ([facility]) This test was performed using FastPack I P Vitamin D immunoassay kit. Values obtained with different assay methods should not be used interchangeably. ID Date Data Source [id number] 02/14/2020 09:15:00 AM EST [facility] ([facility]) Name Value Range Interpretation Code Description Data Lia rce(s) Supporting Document(s) Magnesium 0.5 mg/dL 1.8-2.4 Below lower panic limits [facility] ([facility]) CRITICAL: DR DIA NOTIFIED NOTE: RESULT VERIFIED. ID Date Data Source [id number] 02/14/2020 09:15:00 AM EST [facility] ([facility]) Name Value Range Interpretation Code Description Data Lia rce(s) Supporting Document(s) Leukocytes [#/volume] in Blood by Automated count 9.3 x10*3/UL 4.1-10 .9 [facility] ([facility]) Hemoglobin [Mass/volume] in Blood 12.3 g/dL 12.0-18.0 [facility] ([facility]) Hematocrit [Volume Fraction] of Blood by Automated count 36.8 % 3 7.0-51.0 [facility] Erythrocytes [#/volume] in Blood by Automated count 5.02 x10*6/UL 4.2 0-6.30 [facility] ([facility]) MCH 24.6 pg 26.0-32.0 [facility] MCV 73.3 fL 80.0-97.0 [facility]) MCHC 33.6 g/dL 31.0-38.0 [facility] ([facility]) Platelets [#/volume] in Blood by Automated count 297 x10*3/UL 140-440 [facility] ([facility]) Lymph % 26.7 % 10.0-58.5 [facility]) MPV 9.5 FL 7.8-11.0 [facility] ([facility]) Erythrocyte distribution width [Ratio] by Automated count 14.9 % 11.6-13.7 [facility] ([facility]) Mid % 5.8 % 1.7-9.3 [facility] ([facility] Neut % 67.5 % 37.0-92.0 [facility] Lymph # 2.5 x10*3/UL 0.6-4.1 [facility] ([facility]) Mid # 0.5 x10*3/UL 0.1-0.6 [facility] ([facility]) Neut # 6.3 x10*3/UL 2.0-7.8 [facility] ([facility]) ID Date Data Source [id number] 02/14/2020 09:15:00 AM EST [facility] ([facility]) Name Value Range Interpretation Code Description Data Lia rce(s) Supporting Document(s) Parathyrin.intact [Mass/volume] in Serum or Plasma 24.5 pg/mL 18.5-88 .0 [facility] ([facility]) ID Date Data Source [id number] 02/14/2020 09:15:00 AM EST [facility] ([facility]) Name Value Range Interpretation Code Description Data Lia rce(s) Supporting Document(s) Glucose [Mass/volume] in Serum or Plasma 133 mg/dL 74-99 [facility] ([facility]) 100-125 mg/dL PRE-DIABETES/FASTING >126 mg/dL DIABETES/FASTING Creatinine 0.7 mg/dL 0.6-1.3 [facility] Urea nitrogen [Mass/volume] in Serum or Plasma 5 mg/dL 7-18 [facility] ([facility]) Potassium [Moles/volume] in Serum or Plasma 3.5 meq/L 3.5-5.1 [facility] ([facility]) Chloride [Moles/volume] in Serum or Plasma 102 meq/L 98-107 [facility] ([facility]) Sodium [Moles/volume] in Serum or Plasma 142 meq/L 136-145 [facility] ([facility]) Alkaline phosphatase isoenzyme [Units/volume] in Serum or Pl asma 67 mg/dL 46-116 [facility] ([facility]) Carbon dioxide, total [Moles/volume] in Serum or Plasma 28 meq/L 21 -32 [facility] ([facility]) Calcium [Mass/volume] in Serum or Plasma 7.6 mg/dL 8.5-10.1 [facility] ([facility]) NOTE: CALCIUM,AST,ALBUMIN VERIFIED Total Bilirubin 0.4 mg/dL 0.2-1.0 [facility] ([facility]) Albumin [Mass/volume] in Serum or Plasma 3.2 g/dL 3.4-5.0 [facility] ([facility]) Alanine aminotransferase [Enzymatic activity/volume] in Seru m or Plasma 66 U/L 12-78 [facility] ([facility]) Aspartate aminotransferase [Enzymatic activity/volume] in Serum or Plasma 78 U/L 15-37 [facility] Proteinase 3 Ab [Units/volume] in Serum 7.2 g/dL 6.4-8.2 [facility] ([facility]) A/G Ratio 0.80 CALC 1.00-1.90 [facility] ([facility]) Glomerular filtration rate/1.73 sq M pre dicted among non-blacks [Volume Rate/Area] in Serum or Plasma by Creatinine-based formula (MDRD) Laboratory test result [facility] ([facility] Glomerular filtration rate/1.73 sq M pre dicted among blacks [Volume Rate/Area] in Serum or Plasma by Creatinine-based formula (MDRD) Laboratory test result [facility] ([facility]) <content>CHRONIC KIDNEY DISEASE STAGING PER NKF</content>
<content></content>
<content>STAGE I & II GFR >= 60 NORMAL TO MILDLY DECREASED</content>
<content>STAGE III GFR 30-59 MODERATELY DECREASED</content>
<content>STAGE IV GFR 15-29 SEVERELY DECREASED</content>
<content>STAGE V GFR <15 VERY LITTLE GFR LEFT</content>
<content>ESRD GFR <15 ON HYDROPRESS OPERATOR</content>
<content></content> ID Date Data Source [id number] 02/14/2020 09:15:00 AM EST [facility] ([facility]) Name Value Range Interpretation Code Description Data Lia rce(s) Supporting Document(s) Hemoglobin A1c/Hemoglobin.total in Blood 6.2 % [facility] Lab Result Notes: Pre-Diabetes 5.7 - 6.4 % Diabetes = or > 6.5% Glucose mean value [Mass/volume] in Blood Estimated fr om glycated hemoglobin 131 mg/dL 60-110 [facility] ([facility] ) ID Date Data Source [id number] 02/02/2020 04:07:00 PM EDT [facility] ([facility], ) Name Value Range Interpretation Code Description Data Lia rce(s) Supporting Document(s) Antinuclear Antibodies Direct Laboratory test result [facility] ([facility]) Performed at: [facility] [address] [id number] [employer]: Christy Hoover MD, Phone: [phone] Performed at: [facility] [address] [id number] [employer]: Bella Roca MD, Phone: [phone] Sjogren's Anti SS-B Laboratory test result 0.0-0.9 [facility] ([facility], ) Sjogren's Anti SS-A Laboratory test result 0.0-0.9 [facility] ([facility], ) ID Date Data Source [id number] 02/02/2020 04:07:00 PM EDT [facility] ([facility], ) Name Value Range Interpretation Code Description Data Lia rce(s) Supporting Document(s) Pyridoxine [Mass/volume] in Serum or Plasma 2.6 ug/L 2.0-32.8 [facility] ([facility], ) Specimen Comment: Test(s) 292880-Ciakomu E(Alpha Tocopherol); 701191- Specimen Comment: Vitamin E(Gamma Tocopherol); 584722-Gtmubnr B6; 390560- Specimen Comment: Vit. B1, Whole Blood Specimen Comment: was developed and its performance characteristics Specimen Comment: determined by [facility]. It has not been cleared or approved Specimen Comment: by the Food and Drug Administration. Thiamine [Mass/volume] in Blood 97.5 nmol/L 66.5-200.0 [facility] ([facility], ) Specimen Comment: Test(s) 599400-Dwlyyjf E(Alpha Tocopherol); 283940- Specimen Comment: Vitamin E(Gamma Tocopherol); 480600-Wtfebhu B6; 691847- Specimen Comment: Vit. B1, Whole Blood Specimen Comment: was developed and its performance characteristics Specimen Comment: determined by [facility]. It has not been cleared or approved Specimen Comment: by the Food and Drug Administration. ID Date Data Source [id number] 02/02/2020 04:07:00 PM EDT [facility] ([facility], ) Name Value Range Interpretation Code Description Data Lia rce(s) Supporting Document(s) Vitamin E(Alpha Tocopherol) 8.7 mg/L 7.0-25.1 [facility] ([facility], ) Vitamin E(Gamma Tocopherol) 1.2 mg/L 0.5-5.5 [facility] ([facility]) Reference intervals for alpha and gamma- tocopherol determined from National Health and Nutrition Examination Survey, 3786-0642. Individuals with alpha-tocopherol levels less than 5.0 mg/L are considered vitamin E deficient. ID Date Data Source [id number] 02/02/2020 04:07:00 PM EDT [facility] ([facility], ) Name Value Range Interpretation Code Description Data Lia rce(s) Supporting Document(s) Rheumatoid factor [Units/volume] in Serum or Plasma Laboratory test result [facility] ([facility], ) ID Date Data Source [id number] 02/02/2020 04:07:00 PM EDT [facility] ([facility], ) Name Value Range Interpretation Code Description Data Lia rce(s) Supporting Document(s) Vitamin B12 Level 400 pg/mL [facility] ([facility], ) VITAMIN B12 NORMAL RANGE NORMAL 247 - 911 PG/ML INDETERMINATE 211 - 246 PG/ML DEFICIENT LESS THAN 211 PG/ML Folate 6.2 ng/mL [facility] ([facility], ) FOLATE NORMAL RANGE NORMAL GREATER THAN 5.4 NG/ML INDETERMINATE 3.4-5.4 NG/ML DEFICIENT LESS THAN 3.4 NG/ML ID Date Data Source [id number] 02/02/2020 04:07:00 PM EDT [facility] ([facility], ) Name Value Range Interpretation Code Description Data Lia rce(s) Supporting Document(s) Free T4 1.42 ng/dL 0.76-1.46 [facility] ([facility], ) ID Date Data Source [id number] 02/02/2020 04:07:00 PM EDT [facility] ([facility]) Name Value Range Interpretation Code Description Data Lia rce(s) Supporting Document(s) T Uptake 34 % 30-39 [facility] ([facility], ) Thyroxine (T4) 12.0 ug/dL 4.5-12.0 [facility] ([facility]) Thyroid Stimulating Hormone 0.954 uIU/ML 0.358-3.740 [facility] ([facility]) Free Thyroxine Index 4.1 % 1.3-4.8 [facility] ([facility]) ID Date Data Source [id number] 02/02/2020 04:07:00 PM EDT [facility] ([facility]) Name Value Range Interpretation Code Description Data Lia rce(s) Supporting Document(s) Albumin % 48.9 % 55.8-66.1 [facility] ([facility]) Chrjt-5-Laemxriv % 5.8 % 2.9-4.9 [facility] ([facility]) Idxzz-9-Xaxtiofah % 14.7 % 7.1-11.8 [facility] ([facility]) Neie-6-Rrokegdpy % 6.1 % 3.2-6.5 [facility] ([facility]) Jilr-0-Ujfrnskru % 8.5 % 4.7-7.2 [facility] ([facility]) Gamma Globulin % 16.0 % 11.1-18.8 [facility] ([facility]) Dgzoj-3-Uevwjxbto 0.39 GM/DL 0.17-0.41 [facility] ([facility]) Albumin 3.28 GM/DL 3.29-5.55 [facility] ([facility]) Kxsk-1-Puaducirl 0.41 GM/DL 0.19-0.55 [facility] ([facility]) Numpo-7-Bisdlikrs 0.98 GM/DL 0.42-0.99 [facility] ([facility]) Ekel-1-Vwchcvmwc 0.57 GM/DL 0.28-0.60 [facility] ([facility]) Spep Interpretation Laboratory test result [facility] ([facility]) NO M-SPIKE(S)NOTED. Gamma Globulins 1.07 GM/DL 0.65-1.58 [facility] ([facility]) Total Protein 6.7 GM/DL 6.4-8.2 [facility] ([facility]) Laboratory test finding (navigational concept) Laboratory test result [facility] ([facility]) REV'D BY [employer] [facility] ID Date Data Source [id number] 02/02/2020 04:07:00 PM EDT [facility] ([facility], ) Name Value Range Interpretation Code Description Data Lia rce(s) Supporting Document(s) It Serum Interpretation Laboratory test result [facility] ([facility]) NO MONOCLONAL BANDS NOTED. Laboratory test finding (navigational concept) Laboratory test result [facility] ([facility]) REV'D BY [employer] ID Date Data Source [id number] 02/02/2020 04:07:00 PM EDT [facility] ([facility]) Name Value Range Interpretation Code Description Data Lia rce(s) Supporting Document(s) Erythrocyte sedimentation rate by 2H Westergren method 45 mm/hr 0-2 0 [facility] ([facility], ) ID Date Data Source [id number] 11/09/2019 11:17:00 AM EDT [facility] ([facility]) Name Value Range Interpretation Code Description Data Lia rce(s) Supporting Document(s) Laboratory test finding (navigational concept) 5.9 mg/L 1.3-20.0 [facility] ([facility], ) Laboratory test finding (navigational concept) 11.7 ug/mg 0.0-30.0 [facility] ([facility], ) Laboratory test finding (navigational concept) 50.5 mg/dL 30.0-125.0 [facility] ([facility]) ID Date Data Source [id number] 11/09/2019 11:17:00 AM EDT [facility] ([facility]) Name Value Range Interpretation Code Description Data Lia rce(s) Supporting Document(s) Triglyceride [Mass/volume] in Serum or Plasma 95 mg/dL 30-150 [facility] ([facility], ) Cholesterol in HDL [Mass/volume] in Serum or Plasma 42 mg/dL 35-60 [facility] ([facility], ) Cholesterol [Mass/volume] in Serum or Plasma 202 mg/dL 131-200 [facility] ([facility], ) Cholesterol in LDL [Mass/volume] in Serum or Plasma by calcu lation 141 CALC 50-159 [facility] ([facility]) ID Date Data Source [id number] 11/09/2019 11:17:00 AM EDT [facility] ([facility]) Name Value Range Interpretation Code Description Data Lia rce(s) Supporting Document(s) Glucose [Mass/volume] in Serum or Plasma 154 mg/dL 74-99 [facility] ([facility]) 100-125 mg/dL PRE-DIABETES/FASTING >126 mg/dL DIABETES/FASTING Urea nitrogen [Mass/volume] in Serum or Plasma 5 mg/dL 7-18 [facility] ([facility]) Sodium [Moles/volume] in Serum or Plasma 142 meq/L 136-145 [facility] ([facility]) Creatinine 0.7 mg/dL 0.6-1.3 [facility] ([facility]) Potassium [Moles/volume] in Serum or Plasma 3.8 meq/L 3.5-5.1 [facility] ([facility]) Chloride [Moles/volume] in Serum or Plasma 104 meq/L 98-107 [facility] ([facility]) Calcium [Mass/volume] in Serum or Plasma 8.1 mg/dL 8.5-10.1 [facility] ([facility]) NOTE: RESULT VERIFIED. Carbon dioxide, total [Moles/volume] in Serum or Plasma 31 meq/L 21 -32 [facility] ([facility]) Aspartate aminotransferase [Enzymatic activity/volume] in Serum or Plasma 78 U/L 15-37 [facility] ([facility]) NOTE: RESULT VERIFIED. Alkaline phosphatase isoenzyme [Units/volume] in Serum or Pl asma 70 mg/dL 46-116 [facility] ([facility]) Total Bilirubin 0.3 mg/dL 0.2-1.0 [facility] ([facility]) Proteinase 3 Ab [Units/volume] in Serum 7.2 g/dL 6.4-8.2 [facility] ([facility]) Albumin [Mass/volume] in Serum or Plasma 2.9 g/dL 3.4-5.0 [facility] ([facility]) NOTE: RESULT VERIFIED. Alanine aminotransferase [Enzymatic activity/volume] in Seru m or Plasma 77 U/L 12-78 [facility] ([facility]) Albumin/Globulin [Mass Ratio] in Serum or Plasma 0.67 CALC 1.00-1.90 [facility] ([facility]) Glomerular filtration rate/1.73 sq M pre dicted among non-blacks [Volume Rate/Area] in Serum or Plasma by Creatinine-based formula (MDRD) Laboratory test result [facility] ([facility], ) Glomerular filtration rate/1.73 sq M pre dicted among blacks [Volume Rate/Area] in Serum or Plasma by Creatinine-based formula (MDRD) Laboratory test result [facility] ([facility], ) <content>CHRONIC KIDNEY DISEASE STAGING PER NKF</content>
<content></content>
<content>STAGE I & II GFR >= 60 NORMAL TO MILDLY DECREASED</content>
<content>STAGE III GFR 30-59 MODERATELY DECREASED</content>
<content>STAGE IV GFR 15-29 SEVERELY DECREASED</content>
<content>STAGE V GFR <15 VERY LITTLE GFR LEFT</content>
<content>ESRD GFR <15 ON HYDROPRESS OPERATOR</content>
<content></content>
<content></content> ID Date Data Source [id number] 11/09/2019 11:17:00 AM EDT [facility] ([facility], ) Name Value Range Interpretation Code Description Data Lia rce(s) Supporting Document(s) Hemoglobin A1c/Hemoglobin.total in Blood 6.5 g/dL 4.8-5.6 [facility] ([facility], ) Lab Result Notes: Pre-Diabetes 5.7 - 6.4 % Diabetes = or > 6.5% Glucose mean value [Mass/volume] in Blood Estimated fr om glycated hemoglobin 140 mg/dL 60-110 [facility] ([facility], ) ID Date Data Source [id number] 11/09/2019 11:17:00 AM EDT [facility] ([facility], ) Name Value Range Interpretation Code Description Data Lia rce(s) Supporting Document(s) Hemoglobin [Mass/volume] in Blood 12.9 g/dL 12.0-18.0 [facility] ([facility], ) Erythrocytes [#/volume] in Blood by Automated count 5.32 x10*6/UL 4.2 0-6.30 [facility] ([facility], ) Leukocytes [#/volume] in Blood by Automated count 9.6 x10*3/UL 4.1-10 .9 [facility] ([facility]) MCV 73.3 fL 80.0-97.0 [facility] ([facility]) MCH 24.3 pg 26.0-32.0 [facility] ([facility]) Hematocrit [Volume Fraction] of Blood by Automated count 39.0 % 3 7.0-51.0 [facility] ([facility]) Platelets [#/volume] in Blood by Automated count 295 x10*3/UL 140-440 [facility] ([facility]) MCHC 33.1 g/dL 31.0-38.0 [facility] ([facility]) Erythrocyte distribution width [Ratio] by Automated count 14.9 % 11.6-13.7 [facility] ([facility]) Platelet mean volume [Entitic volume] in Blood by Herrera-Bartolo 8.2 FL 7.8-11.0 [facility] ([facility]) Lymphocytes/100 leukocytes in Blood by Automated count 29.5 % 10. 0-58.5 [facility] ([facility]) Laboratory test finding (navigational concept) 6.7 % 1.7-9.3 [facility] ([facility]) Laboratory test finding (navigational concept) 0.7 x10*3/UL 0.1-0.6 [facility] ([facility]) Lymph # 2.8 x10*3/UL 0.6-4.1 [facility] ([facility]) Laboratory test finding (navigational concept) 63.8 % 37.0-92.0 [facility] ([facility]) Neutrophils [#/volume] in Semen by Manual count 6.1 x10*3/UL 2.0-7.8 [facility] ([facility]) ID Date Data Source [id number] 11/09/2019 11:17:00 AM EDT [facility] ([facility]) Name Value Range Interpretation Code Description Data Lia rce(s) Supporting Document(s) Microalbumin Urine 5.9 mg/L 1.3-20.0 [facility] ([facility]) Microalb/Creat Ratio 11.7 ug/mg 0.0-30.0 [facility] ( [facility]) Urine Creatinine 50.5 mg/dL 30.0-125.0 [facility] ([facility]) ID Date Data Source [id number] 11/09/2019 11:17:00 AM EDT [facility] ([facility]) Name Value Range Interpretation Code Description Data Lia rce(s) Supporting Document(s) Triglyceride [Mass/volume] in Serum or Plasma 95 mg/dL 30-150 [facility] ([facility]) Cholesterol [Mass/volume] in Serum or Plasma 202 mg/dL 131-200 [facility] ([facility]) Cholesterol in HDL [Mass/volume] in Serum or Plasma 42 mg/dL 35-60 [facility] ([facility]) Cholesterol in LDL [Mass/volume] in Serum or Plasma by calcu lation 141 CALC 50-159 [facility] ([facility]) ID Date Data Source [id number] 11/09/2019 11:17:00 AM EDT [facility] ([facility]) Name Value Range Interpretation Code Description Data Lia rce(s) Supporting Document(s) Glucose [Mass/volume] in Serum or Plasma 154 mg/dL 74-99 [facility] ([facility]) 100-125 mg/dL PRE-DIABETES/FASTING >126 mg/dL DIABETES/FASTING Urea nitrogen [Mass/volume] in Serum or Plasma 5 mg/dL 7-18 [facility] ([facility]) Sodium [Moles/volume] in Serum or Plasma 142 meq/L 136-145 [facility] ([facility]) Creatinine 0.7 mg/dL 0.6-1.3 [facility] Carbon dioxide, total [Moles/volume] in Serum or Plasma 31 meq/L 21 -32 [facility] ([facility]) Potassium [Moles/volume] in Serum or Plasma 3.8 meq/L 3.5-5.1 [facility] ([facility]) Chloride [Moles/volume] in Serum or Plasma 104 meq/L 98-107 [facility] ([facility]) Calcium [Mass/volume] in Serum or Plasma 8.1 mg/dL 8.5-10.1 [facility] ([facility]) NOTE: RESULT VERIFIED. Alkaline phosphatase isoenzyme [Units/volume] in Serum or Pl asma 70 mg/dL 46-116 [facility] ([facility]) Total Bilirubin 0.3 mg/dL 0.2-1.0 [facility] ([facility]) Aspartate aminotransferase [Enzymatic activity/volume] in Serum or Plasma 78 U/L 15-37 [facility] ([facility] ) NOTE: RESULT VERIFIED. Alanine aminotransferase [Enzymatic activity/volume] in Seru m or Plasma 77 U/L 12-78 [facility] ([facility]) Albumin [Mass/volume] in Serum or Plasma 2.9 g/dL 3.4-5.0 [facility] ([facility]) NOTE: RESULT VERIFIED. Proteinase 3 Ab [Units/volume] in Serum 7.2 g/dL 6.4-8.2 [facility] ([facility]) Glomerular filtration rate/1.73 sq M pre dicted among non-blacks [Volume Rate/Area] in Serum or Plasma by Creatinine-based formula (MDRD) Laboratory test result [facility] ([facility] ) A/G Ratio 0.67 CALC 1.00-1.90 [facility] Glomerular filtration rate/1.73 sq M pre dicted among blacks [Volume Rate/Area] in Serum or Plasma by Creatinine-based formula (MDRD) Laboratory test result [facility] <content>CHRONIC KIDNEY DISEASE STAGING PER NKF</content>
<content></content>
<content>STAGE I & II GFR >= 60 NORMAL TO MILDLY DECREASED</content>
<content>STAGE III GFR 30-59 MODERATELY DECREASED</content>
<content>STAGE IV GFR 15-29 SEVERELY DECREASED</content>
<content>STAGE V GFR <15 VERY LITTLE GFR LEFT</content>
<content>ESRD GFR <15 ON HYDROPRESS OPERATOR</content>
<content></content> ID Date Data Source [id number] 11/09/2019 11:17:00 AM EDT [facility] ([facility]) Name Value Range Interpretation Code Description Data Lia rce(s) Supporting Document(s) Hemoglobin A1c/Hemoglobin.total in Blood 6.5 g/dL 4.8-5.6 [facility] ([facility]) Lab Result Notes: Pre-Diabetes 5.7 - 6.4 % Diabetes = or > 6.5% Glucose mean value [Mass/volume] in Blood Estimated fr om glycated hemoglobin 140 mg/dL 60-110 [facility] ([facility] ) ID Date Data Source [id number] 11/09/2019 11:17:00 AM EDT [facility] Name Value Range Interpretation Code Description Data Lia rce(s) Supporting Document(s) Leukocytes [#/volume] in Blood by Automated count 9.6 x10*3/UL 4.1-10 .9 [facility] ([facility]) Erythrocytes [#/volume] in Blood by Automated count 5.32 x10*6/UL 4.2 0-6.30 [facility] ([facility] Hemoglobin [Mass/volume] in Blood 12.9 g/dL 12.0-18.0 [facility] ([facility]) Hematocrit [Volume Fraction] of Blood by Automated count 39.0 % 3 7.0-51.0 [facility] ([facility]) MCH 24.3 pg 26.0-32.0 [facility] MCV 73.3 fL 80.0-97.0 [facility] MCHC 33.1 g/dL 31.0-38.0 [facility] ([facility]) Platelets [#/volume] in Blood by Automated count 295 x10*3/UL 140-440 [facility] Erythrocyte distribution width [Ratio] by Automated count 14.9 % 11.6-13.7 [facility] ([facility]) MPV 8.2 FL 7.8-11.0 [facility] Neut % 63.8 % 37.0-92.0 [facility] Lymph % 29.5 % 10.0-58.5 [facility] Mid % 6.7 % 1.7-9.3 [facility] Lymph # 2.8 x10*3/UL 0.6-4.1 [facility] ([facility]) Neut # 6.1 x10*3/UL 2.0-7.8 [facility] ([facility]) Mid # 0.7 x10*3/UL 0.1-0.6 [facility] ([facility]) ID Date Data Source [id number] 11/09/2019 11:17:00 AM EDT [facility] ([facility]) Name Value Range Interpretation Code Description Data Lia rce(s) Supporting Document(s) Hemoglobin A1c/Hemoglobin.total in Blood Laboratory test result [facility] ID Date Data Source [id number] 08/07/2019 12:00:00 PM EDT [facility] ([facility]) Name Value Range Interpretation Code Description Data Lia rce(s) Supporting Document(s) Hemoglobin A1c/Hemoglobin.total in Blood 7.1 g/dL 4.8-5.6 [facility] Lab Result Notes: Pre-Diabetes 5.7 - 6.4 % Diabetes = or > 6.5% Glucose mean value [Mass/volume] in Blood Estimated fr om glycated hemoglobin 157 mg/dL 60-110 [facility] [facility] ([facility] ) ID Date Data Source [id number] 08/07/2019 12:00:00 PM EDT [facility] ([facility]) Name Value Range Interpretation Code Description Data Lia rce(s) Supporting Document(s) Thyroxine (T4) free [Mass/volume] in Serum or Plasma 1.22 ng/dL 0.76- 1.46 [facility] ([facility]) ID Date Data Source [id number] 08/07/2019 12:00:00 PM EDT [facility] ([facility]) Name Value Range Interpretation Code Description Data Lia rce(s) Supporting Document(s) Thyrotropin [Units/volume] in Serum or Plasma by Detec tion limit <= 0.05 mIU/L 1.53 uIU/mL 0.36-3.74 [facility] ([facility] ) ID Date Data Source [id number] 08/07/2019 12:00:00 PM EDT [facility] ([facility]) Name Value Range Interpretation Code Description Data Lia rce(s) Supporting Document(s) Triglyceride [Mass/volume] in Serum or Plasma 64 mg/dL 30-150 [facility] ([facility]) Cholesterol [Mass/volume] in Serum or Plasma 192 mg/dL 131-200 [facility] ([facility]) Cholesterol in LDL [Mass/volume] in Serum or Plasma by calcu lation 130 CALC 50-159 [facility] ([facility]) Cholesterol in HDL [Mass/volume] in Serum or Plasma 49 mg/dL 35-60 [facility] ([facility]) ID Date Data Source [id number] 08/07/2019 12:00:00 PM EDT [facility] ([facility]) Name Value Range Interpretation Code Description Data Lia rce(s) Supporting Document(s) Urea nitrogen [Mass/volume] in Serum or Plasma 6 mg/dL 7-18 [facility] ([facility]) Glucose [Mass/volume] in Serum or Plasma 125 mg/dL 74-99 [facility] ([facility]) 100-125 mg/dL PRE-DIABETES/FASTING >126 mg/dL DIABETES/FASTING Potassium [Moles/volume] in Serum or Plasma 3.5 meq/L 3.5-5.1 [facility] ([facility]) Sodium [Moles/volume] in Serum or Plasma 141 meq/L 136-145 [facility] ([facility]) Creatinine 0.8 mg/dL 0.6-1.3 [facility] Carbon dioxide, total [Moles/volume] in Serum or Plasma 28 meq/L 21 -32 [facility] ([facility]) Calcium [Mass/volume] in Serum or Plasma 8.0 mg/dL 8.5-10.1 [facility] ([facility]) NOTE: RESULT VERIFIED. Chloride [Moles/volume] in Serum or Plasma 102 meq/L 98-107 [facility] ([facility]) Alanine aminotransferase [Enzymatic activity/volume] in Seru m or Plasma 54 U/L 12-78 [facility] ([facility]) Alkaline phosphatase isoenzyme [Units/volume] in Serum or Pl asma 73 mg/dL 46-116 [facility] ([facility]) Aspartate aminotransferase [Enzymatic activity/volume] in Serum or Plasma 34 U/L 15-37 [facility] ([facility] ) Total Bilirubin 0.3 mg/dL 0.2-1.0 [facility] ([facility]) Albumin [Mass/volume] in Serum or Plasma 3.2 g/dL 3.4-5.0 [facility] ([facility]) Proteinase 3 Ab [Units/volume] in Serum 7.2 g/dL 6.4-8.2 [facility] A/G Ratio 0.80 CALC 1.00-1.90 [facility] Glomerular filtration rate/1.73 sq M pre dicted among non-blacks [Volume Rate/Area] in Serum or Plasma by Creatinine-based formula (MDRD) Laboratory test result [facility] Glomerular filtration rate/1.73 sq M pre dicted among blacks [Volume Rate/Area] in Serum or Plasma by Creatinine-based formula (MDRD) Laboratory test result [facility] <content>CHRONIC KIDNEY DISEASE STAGING PER NKF</content>
<content></content>
<content>STAGE I & II GFR >= 60 NORMAL TO MILDLY DECREASED</content>
<content>STAGE III GFR 30-59 MODERATELY DECREASED</content>
<content>STAGE IV GFR 15-29 SEVERELY DECREASED</content>
<content>STAGE V GFR <15 VERY LITTLE GFR LEFT</content>
<content>ESRD GFR <15 ON HYDROPRESS OPERATOR</content>
<content></content> ID Date Data Source [id number] 07/17/2019 01:05:00 PM EDT [facility] Name Value Range Interpretation Code Description Data Lia rce(s) Supporting Document(s) Coronavirus 2019 Nasopharygeal Laboratory test result [facility] ([facility]) Testing was performed using the jesus(R) SARS-CoV-2 test. This test was developed and its performance characteristics determined by [employer]. This test has not been FDA cleared or approved. This test has been authorized by FDA under an Emergency Use Authorization (EUA). This test is only authorized for the duration of time the declaration that circumstances exist justifying the authorization of the emergency use of in vitro diagnostic tests for detection of SARS-CoV-2 virus and/or diagnosis of COVID-19 infection under section 564(b)(1) of the Act, 21 U.S.C. 360bbb-3(b)(1), unless the authorization is terminated or revoked sooner. Performed at: RN - [facility] [address] [id number] [employer]: Christy Hoover MD, Phone: [phone] Not Detected ID Date Data Source [id number] 07/17/2019 01:05:00 PM EDT [facility] Name Value Range Interpretation Code Description Data Lia rce(s) Supporting Document(s) SARS CORONAVIRUS 2 RNA [facility] This lab was ordered by [facility] and reported by [facility]. Procedure Vital Signs ID Date Data Source [id number] Name Value Range Interpretation Code Description Data Source(s) Body mass index (BMI) [Ratio] 34.4 kg/m2 34.4 k g/m2 [facility] ([facility], [facility]) Body height 65 [in_i] 65 [in_i] [facility] ([facility]) 5'5" Body weight 207.00 [lb_av] 207.00 [lb_av] [facility] ([facility]) Body temperature 95.3 [degF] 95.3 [degF] [facility] ([facility]) Oxygen saturation in Arterial blood by Pulse oximetry 98 % 98 % [facility] ([facility]) Respiratory rate 16 /min 16 /min [facility] ( [facility]) Heart rate 128 /min 128 /min [facility] ([facility]) Diastolic blood pressure 90 mm[Hg] 90 mm[Hg] [facility] ([facility]) Systolic blood pressure 150 mm[Hg] 150 mm[Hg] M [facility] Body mass index (BMI) [Ratio] 34.6 kg/m2 34.6 k g/m2 [facility] ([facility]) Body weight 211.25 [lb_av] 211.25 [lb_av] [facility] ([facility]) Body height 65.5 [in_i] 65.5 [in_i] [facility] ([facility]) 5'5.50" Heart rate 70 /min 70 /min [facility] ([facility]) Diastolic blood pressure 80 mm[Hg] 80 mm[Hg] [facility] ([facility]) Systolic blood pressure 126 mm[Hg] 126 mm[Hg] [facility] ([facility]) [place] body weight 136 [lb_av] 136 [lb_av] [facility] ([facility], ) Body mass index (BMI) [Ratio] 34.4 kg/m2 34.4 k g/m2 [facility] ([facility], ) Body weight 210.00 [lb_av] 210.00 [lb_av] [facility] ([facility], ) Body height 65.5 [in_i] 65.5 [in_i] [facility] ([facility], ) 5'5.50" Respiratory rate 12 /min 12 /min [facility] Body mass index (BMI) [Ratio] 35.1 kg/m2 35.1 k g/m2 [facility] ([facility], ) Body weight 214.00 [lb_av] 214.00 [lb_av] [facility] ([facility]) Body height 65.5 [in_i] 65.5 [in_i] [facility] ([facility], ) Heart rate 70 /min 70 /min [facility] ([facility], ) Diastolic blood pressure 80 mm[Hg] 80 mm[Hg] [facility] ([facility], ) Systolic blood pressure 128 mm[Hg] 128 mm[Hg] M [facility] ([facility], ) Body mass index (BMI) [Ratio] 35.1 kg/m2 35.1 k g/m2 [facility] ([facility]) Body weight 214.00 [lb_av] 214.00 [lb_av] [facility] ([facility]) Body height 65.5 [in_i] 65.5 [in_i] [facility] ([facility]) 5'5.50" Heart rate 70 /min 70 /min [facility] Diastolic blood pressure 80 mm[Hg] 80 mm[Hg] [facility] ([facility]) Systolic blood pressure 128 mm[Hg] 128 mm[Hg] [facility]) Body mass index (BMI) [Ratio] 34.9 kg/m2 34.9 k g/m2 [facility] ([facility]) Body weight 213.12 [lb_av] 213.12 [lb_av] [facility] ([facility]) Body height 65.5 [in_i] 65.5 [in_i] [facility] ([facility]) 50" Heart rate 76 /min 76 /min [facility] ([facility]) Diastolic blood pressure 80 mm[Hg] 80 mm[Hg] [facility] ([facility]) Systolic blood pressure 140 mm[Hg] 140 mm[Hg] [facility] ([facility]) Body mass index (BMI) [Ratio] 34.4 kg/m2 34.4 k g/m2 [facility] ([facility], [facility]) Body height 65.5 [in_i] 65.5 [in_i] [facility] ([facility], [facility]) 50" Body weight 210.00 [lb_av] 210.00 [lb_av] [facility] ([facility], [facility]) Body temperature 97.8 [degF] 97.8 [degF] [facility] ([facility], [facility]) Oxygen saturation in Arterial blood by Pulse oximetry 99 % 99 % [facility] ([facility], [facility]) Respiratory rate 20 /min 20 /min [facility] ( [facility], [facility]) Heart rate 85 /min 85 /min [facility], [facility]) Diastolic blood pressure 90 mm[Hg] 90 mm[Hg] [facility] ([facility], [facility]) Systolic blood pressure 138 mm[Hg] 138 mm[Hg] [facility] ([facility], [facility])
[2020-04-25] MEDS: MAG SULF 1GM/100ML (MAG RUN) 1 GM in IV 1 EA IV SCH ×2 (21:40→22:00)
[2020-04-25 22:15] VITALS: BP 157/93
--- OUTSIDE RECORDS SUMMARY | 2020-04-25 23:21 | CCD ---
Author Author [facility] Organization [facility] Address Unknown Phone Unavailable Care Team Providers Care Sign Carpenter Name Role Phone Romeo Dia MD Unavailable [...] F Dash MD Unavailable Unavailable White, F Dahs MD Unavailable Unavailable White, F Dash MD [...] K ANJANA PA Unavailable Unavailable Chawla, Vashti DIESEL SERVICE JOURNEYMAN Unavailable Unavailable Chawla, Vashti DIESEL SERVICE JOURNEYMAN Unavailable Unavailable Chawla, Vashti DIESEL SERVICE JOURNEYMAN Unavailable Unavailable Chawla, Vashti DIESEL SERVICE JOURNEYMAN Unavailable Unavailable Chawla, Vashti DIESEL SERVICE JOURNEYMAN Unavailable Unavailable Chawla, Vashti DIESEL SERVICE JOURNEYMAN Unavailable Unavailable Chawla, Vashti DIESEL SERVICE JOURNEYMAN Unavailable Unavailable Chawla, Vashti DIESEL SERVICE JOURNEYMAN Unavailable Unavailable Chawla, Vashti DIESEL SERVICE JOURNEYMAN Unavailable Unavailable Chawla, Vashti DIESEL SERVICE JOURNEYMAN Unavailable Unavailable Chawla, Vashti DIESEL SERVICE JOURNEYMAN Unavailable Unavailable Naomy Gonzales MD Unavailable Unavailable [...] Unavailable Unavailable Naomy Gonzales MD Unavailable Unavailable aNomy Gonzales MD Unavailable Unavailable Naomy Gonzales MD Unavailable Unavailable Naomy Gonzales MD Unavailable Unavailable Naomy Gonzales MD Unavailable Unavailable Naomy Gonzales MD Unavailable Unavailable Noamy Gonzales MD Unavailable Unavailable Naomy Gonzales MD [...] is protected by Article 27-F of the [facility] Public Health law. If you continue you may have access to information: Regarding HIV / AIDS; Provided by facilities licensed or operated by the [facility] Office of Mental Health; or Provided by the [facility] Office for People With Developmental Disabilities. If such information is present, then the following [facility] mandated warning applies: This information has been [...] law may result in a fine or shelter sentence or both. A general authorization for the release of medical or other information is NOT sufficient authorization for further disc losure. Family History Family Member Name Family Member Gender Family Member Status Date o f Status Description Data Source(s) Unknown Unknown Problem [facility] colon PCF, PF, mother Unknown Unknown Problem [facility] ([facility]) Unknown Female Problem [facility] ([facility]) Encounters Encounter Providers Location Date Indications Data Source(s ) Outpatient Attender: Vashti Michel chikis 04/11/2020 03:00:00 PM EST [facility] ([facility] Outpatient Attender: Dash Hodges 02/13 12:00:00 PM EST [facility] ([facility] ) Outpatient Attender: Suzie Gonzales MD [facility] 01/30/2020 09:00:00 AM EDT [facility] ([facility], ) Outpatient Attender: ANJANA Dutta [facility] 04/24/2019 11:30:00 AM EST [facility] ([facility]) Medications Medication Brand [...] ORAL active [facility] ([facility]) Ergocalciferol 44792 UNT Oral Capsule [Drisdol] Drisdol 02/14/2020 12:00:00 [...] Prednisone 11/09/2019 12:00:00 AM EDT completed [facility] Triamcinolone Acetonide 1 MG/ML Topical Cream Triamcinolone Acetonide 11/09/2019 12:00:00 AM EDT active MED[facility] ([facility], ) Triamcinolone Acetonide 1 MG/ML Topical Cream Triamcinolone Acetonide 11/09/2019 12:00:00 AM EDT active [facility] ([facility]) 0.1 % 11/09/2019 12:00:00 AM EDT [...] 12:00:00 AM EDT RESPIRATORY active MED[facility] ( [facility]) 60 ACTUAT Budesonide 0.16 MG/ACTUAT / fo rmoterol fumarate 0.0045 MG/ACTUAT Metered Dose Inhaler [Symbicort] Symbicort 10/30/2019 12:00:00 AM EDT RESPIRATORY active MED[facility] ( [facility], ) 500 mg 08/09/2019 12:00:00 AM [...] Gum 08/08/2019 12:00:00 AM EDT active [facility] ([facility]) Nicotine 2 MG Chewing Gum Ra Nicotine Gum 08/08/2019 12:00:00 AM EDT active [facility] ([facility]) Metformin hydrochloride 500 MG Oral [...] 07/18/2019 12:00:00 AM EDT ORAL active [facility] ([facility], ) 10 mg 07/18/2019 12:00:00 [...] 07/18/2019 12:00:00 AM EDT ORAL active [facility]) 5 mg 04/24/2019 12:00:00 AM [...] Prednisone 04/24/2019 12:00:00 AM EST active [facility] ([facility] Cyclobenzaprine hydrochloride 5 MG Oral Tablet Cyclobenzapri ne HCL 04/24/2019 12:00:00 AM EST ORAL active M EDENT ([facility] 20 mg 02/24/2019 12:00:00 AM EST [...] TIMES A DAY NEEDED SOLD: 09/17/2019 Tina Clatyon gs 90 mcg/actuation 02/15/2019 12:00:00 AM EST [...] to powell Policy [place] Plan Information [facility]MR [facility] [id number] SP [id number] Umr Commercial [id number] Self [id number] [employer]/Umr (Old) Medigap Part B [id number] Self [id number] Umr (New [employer]) Commercial [id number] Self [id number] ANSI-Commercial [id number] UMR [facility] [id number] SP [id number] [employer] [id number] SP [id number] Umr/Uhc/[employer] Health Maintenance Organization (HMO) [id number] Self [id number] [employer] [id number] SP [id number] [employer] [id number] SP [id number] [employer] Commercial [id number] Self [id number] [employer] [id number] SP [id number] [employer] Health Maintenance Organization (HMO) [id number] Se lf [id number] [employer] [id number] SP [id number] [employer] Commercial Self [employer] Ppo Commercial [id number] Self [id number] [employer] PPO P [id number] S [id number] Problems, Conditions, and Diagnoses Code Display Name Description Problem Type Effective Dates Data Source(s) [id number] Paresthesia Paresthesia Problem 01/30/2020 12:00:00 AM EDT MED[facility] ([facility], ) Surgeries/Procedures Procedure Description Date Indications Data Source(s) MRI BRAIN BRAIN STEM W/O CONTRAST MATERIAL 02/24/2020 12:00:00 AM EST MED[facility] ([facility], ) MRI BRAIN BRAIN STEM W/O CONTRAST MATERIAL 02/24/2020 12:00:00 AM EST [facility] ([facility], ) MRI SPINAL CANAL CERVICAL W/O CONTRAST MATRL 0 12:00:00 AM EST [facility] ([facility], ) MRI SPINAL CANAL CERVICAL W/O CONTRAST MATRL 0 12:00:00 AM EST [facility] ([facility], ) MRI Spine Thoracic W/O Contrast 02/24/2020 12:00:00 AM EST [facility] ([facility], ) MRI Spine Thoracic W/O Contrast 02/24/2020 12:00:00 AM EST [facility] ([facility], ) MRI SPINAL CANAL LUMBAR W/O CONTRAST MATERIAL 02/24/20 20 12:00:00 AM EST MED[facility] ([facility], ) Needle electromyography, each extremity, with related paraspinal areas, when performed, done with nerve conduction, amplitude and latency/velocity study; complete, five or more muscles studied, innervated by three or more nerves or four or more spinal levels (list separately in addition to the code for primary procedure). 02/14/2020 12:00:00 AM EST MEDEN T ([facility], ) Needle electromyography, each extremity, with related paraspinal areas, when performed, done with nerve conduction, amplitude and latency/velocity study; complete, five or more muscles studied, innervated by three or more nerves or four or more spinal levels (list separately in addition to the code for primary procedure). 02/14/2020 12:00:00 AM EST MEDEN T ([facility], ) 19715 Nerve conduction studies 13 or more studies NEW 201202/14/2020 12:00:00 AM EST [facility] ([facility] ) TESTING AUTONOMIC NERVOUS SYSTEM FUNCTION 02/07/2020 1 2:00:00 AM EDT MED[facility] ([facility], ) TESTING AUTONOMIC NERVOUS SYSTEM FUNCTION 02/07/2020 1 2:00:00 AM EDT MED[facility] ([facility], ) TSTG ANS FUNCJ CARDIOVAGAL INNERVAJ PARASYMP 0 12:00:00 AM EDT MED[facility] ([facility], ) TSTG ANS FUNCJ CARDIOVAGAL INNERVAJ PARASYMP 0 12:00:00 AM EDT MED[facility] ([facility], ) 69134 Nerve conduction studies 13 or more studies NEW 201202/07/2020 12:00:00 AM EDT [facility] ([facility] ) Needle electromyography, each extremity, with related paraspinal areas, when performed, done with nerve conduction, amplitude and latency/velocity study; complete, five or more muscles studied, innervated by three or more nerves or four or more spinal levels (list separately in addition to the code for primary procedure). 02/07/2020 12:00:00 AM EDT MEDEN T ([facility], ) Needle electromyography, each extremity, with related paraspinal areas, when performed, done with nerve conduction, amplitude and latency/velocity study; complete, five or more muscles studied, innervated by three or more nerves or four or more spinal levels (list separately in addition to the code for primary procedure). 02/07/2020 12:00:00 AM EDT MEDEN T ([facility], ) NON-INVASIVE PHYSIOLOGIC STUDY EXTREMITY 3 LEVLS 02/06 12:00:00 AM EDT MED[facility] ([facility], ) NON-INVASIVE PHYSIOLOGIC STUDY EXTREMITY 3 LEVLS 02/06 12:00:00 AM EDT [facility] ([facility], ) NON-INVASIVE PHYSIOLOGIC STUDY EXTREMITY 3 LEVLS 02/06 12:00:00 AM EDT [facility] ([facility], ) NON-INVASIVE PHYSIOLOGIC STUDY EXTREMITY 3 LEVLS 02/06 12:00:00 AM EDT [facility] ([facility], ) Results ID Date Data Source [id number] 04/11/2020 12:00:00 AM EST [facility] Name Value Range Interpretation Code Description Data Lia rce(s) Supporting Document(s) SARS coronavirus 2 Ag [facility] This lab was ordered by [facility] and reported by [facility]. ID Date Data Source [id number] 02/14/2020 09:15:00 AM EST [facility] ([facility]) Name Value Range Interpretation Code Description Data Lia rce(s) Supporting Document(s) Calcidiol [Mass/volume] in Serum or Plasma 15.4 24.0-80.0 [facility] ([facility]) This test was performed using FastPack I P Vitamin D immunoassay kit. Values obtained with different assay methods should not be used interchangeably. ID Date Data Source [id number] 02/14/2020 09:15:00 AM EST [facility] ([facility]) Name Value Range Interpretation Code Description Data Lia rce(s) Supporting Document(s) Magnesium 0.5 mg/dL 1.8-2.4 Below lower panic limits [facility] ([facility]) CRITICAL: DR DIA NOTIFIED NOTE: RESULT VERIFIED. ID Date Data Source [id number] 02/14/2020 09:15:00 AM EST [facility] ([facility]) Name Value Range Interpretation Code Description Data Lia rce(s) Supporting Document(s) Leukocytes [#/volume] in Blood by Automated count 9.3 x10*3/UL 4.1-10 .9 [facility] ([facility]) Hemoglobin [Mass/volume] in Blood 12.3 g/dL 12.0-18.0 [facility] ([facility]) Hematocrit [Volume Fraction] of Blood by Automated count 36.8 % 3 7.0-51.0 [facility] Erythrocytes [#/volume] in Blood by Automated count 5.02 x10*6/UL 4.2 0-6.30 [facility] ([facility]) MCH 24.6 pg 26.0-32.0 [facility] MCV 73.3 fL 80.0-97.0 [facility] MCHC 33.6 g/dL 31.0-38.0 [facility] ([facility]) Platelets [#/volume] in Blood by Automated count 297 x10*3/UL 140-440 [facility] ([facility]) Lymph % 26.7 % 10.0-58.5 [facility] MPV 9.5 FL 7.8-11.0 [facility] ([facility]) Erythrocyte distribution width [Ratio] by Automated count 14.9 % 11.6-13.7 [facility] ([facility]) Mid % 5.8 % 1.7-9.3 [facility] Neut % 67.5 % 37.0-92.0 [facility] Lymph # 2.5 x10*3/UL 0.6-4.1 [facility] ([facility]) Mid # 0.5 x10*3/UL 0.1-0.6 [facility] ([facility]) Neut # 6.3 x10*3/UL 2.0-7.8 [facility] ([facility]) ID Date Data Source [id number] 02/14/2020 09:15:00 AM EST [facility] ([facility]) Name Value Range Interpretation Code Description Data Lia rce(s) Supporting Document(s) Parathyrin.intact [Mass/volume] in Serum or Plasma 24.5 pg/mL 18.5-88 .0 [facility] ([facility]) ID Date Data Source [id number] 02/14/2020 09:15:00 AM EST [facility] ([facility]) Name Value Range Interpretation Code Description Data Lia rce(s) Supporting Document(s) Glucose [Mass/volume] in Serum or Plasma 133 mg/dL 74-99 [facility] ([facility]) 100-125 mg/dL PRE-DIABETES/FASTING >126 mg/dL DIABETES/FASTING Creatinine 0.7 mg/dL 0.6-1.3 [facility] ([facility]) Urea nitrogen [Mass/volume] in Serum or Plasma 5 mg/dL 7-18 [facility] ([facility]) Potassium [Moles/volume] in Serum or Plasma 3.5 meq/L 3.5-5.1 [facility] ([facility]) Chloride [Moles/volume] in Serum or Plasma 102 meq/L 98-107 [facility] ([facility]) Sodium [Moles/volume] in Serum or Plasma 142 meq/L 136-145 [facility] ([facility]) Alkaline phosphatase isoenzyme [Units/volume] in Serum or Pl asma 67 mg/dL 46-116 [facility] ([facility]) Carbon dioxide, total [Moles/volume] in Serum or Plasma 28 meq/L 21 -32 [facility] ([facility]) Calcium [Mass/volume] in Serum or Plasma 7.6 mg/dL 8.5-10.1 [facility] ([facility]) NOTE: CALCIUM,AST,ALBUMIN VERIFIED Total Bilirubin 0.4 mg/dL 0.2-1.0 [facility] ([facility]) Albumin [Mass/volume] in Serum or Plasma 3.2 g/dL 3.4-5.0 [facility] Alanine aminotransferase [Enzymatic activity/volume] in Seru m or Plasma 66 U/L 12-78 [facility] ([facility]) Aspartate aminotransferase [Enzymatic activity/volume] in Serum or Plasma 78 U/L 15-37 [facility] Proteinase 3 Ab [Units/volume] in Serum 7.2 g/dL 6.4-8.2 [facility] ([facility]) A/G Ratio 0.80 CALC 1.00-1.90 [facility] ([facility]) Glomerular filtration rate/1.73 sq M pre dicted among non-blacks [Volume Rate/Area] in Serum or Plasma by Creatinine-based formula (MDRD) Laboratory test result [facility] Glomerular filtration rate/1.73 sq M pre dicted among blacks [Volume Rate/Area] in Serum or Plasma by Creatinine-based formula (MDRD) Laboratory test result [facility] <content>CHRONIC KIDNEY DISEASE STAGING PER NKF</content>
<content></content>
<content>STAGE I & II GFR >= 60 NORMAL TO MILDLY DECREASED</content>
<content>STAGE III GFR 30-59 MODERATELY DECREASED</content>
<content>STAGE IV GFR 15-29 SEVERELY DECREASED</content>
<content>STAGE V GFR <15 VERY LITTLE GFR LEFT</content>
<content>ESRD GFR <15 ON HONEYCOMB BLANKET MAKER</content>
<content></content> ID Date Data Source [id number] 02/14/2020 09:15:00 AM EST [facility] ([facility]) Name Value Range Interpretation Code Description Data Lia rce(s) Supporting Document(s) Hemoglobin A1c/Hemoglobin.total in Blood 6.2 % [facility] Lab Result Notes: Pre-Diabetes 5.7 - 6.4 % Diabetes = or > 6.5% Glucose mean value [Mass/volume] in Blood Estimated fr om glycated hemoglobin 131 mg/dL 60-110 [facility] ([facility] ) ID Date Data Source [id number] 02/02/2020 04:07:00 PM EDT [facility] ([facility], ) Name Value Range Interpretation Code Description Data Lia rce(s) Supporting Document(s) Antinuclear Antibodies Direct Laboratory test result [facility] ([facility]) Performed at: [facility] [address] [id number] Direct Mail Coordinator: Christy Hoover MD, Phone: [phone] Performed at: [facility] [address] [id number] Direct Mail Coordinator: Bella Roca MD, Phone: [phone] Sjogren's Anti SS-B Laboratory test result 0.0-0.9 [facility] ([facility], ) Sjogren's Anti SS-A Laboratory test result 0.0-0.9 [facility] ([facility], ) ID Date Data Source [id number] 02/02/2020 04:07:00 PM EDT [facility] ([facility], ) Name Value Range Interpretation Code Description Data Lia rce(s) Supporting Document(s) Pyridoxine [Mass/volume] in Serum or Plasma 2.6 ug/L 2.0-32.8 [facility] ([facility], ) Specimen Comment: Test(s) [id number] E(Alpha Tocopherol); 488251- Specimen Comment: Vitamin E(Gamma Tocopherol); 436591-Qmdabpb B6; 947656- Specimen Comment: Vit. B1, Whole Blood Specimen Comment: was developed and its performance characteristics Specimen Comment: determined by [facility]. It has not been cleared or approved Specimen Comment: by the Food and Drug Administration. Thiamine [Mass/volume] in Blood 97.5 nmol/L 66.5-200.0 [facility] ([facility], ) Specimen Comment: Test(s) 922754-Xvwqxmj E(Alpha Tocopherol); 547271- Specimen Comment: Vitamin E(Gamma Tocopherol); 098838-Gwzgtpt B6; 420819- Specimen Comment: Vit. B1, Whole Blood Specimen Comment: was developed and its performance characteristics Specimen Comment: determined by [facility]. It has not been cleared or approved Specimen Comment: by the Food and Drug Administration. ID Date Data Source [id number] 02/02/2020 04:07:00 PM EDT [facility] ([facility], ) Name Value Range Interpretation Code Description Data Lia rce(s) Supporting Document(s) Vitamin E(Alpha Tocopherol) 8.7 mg/L 7.0-25.1 [facility] ([facility], ) Vitamin E(Gamma Tocopherol) 1.2 mg/L 0.5-5.5 [facility] ([facility]) Reference intervals for alpha and gamma- tocopherol determined from National Health and Nutrition Examination Survey, 8422-1768. Individuals with alpha-tocopherol levels less than 5.0 mg/L are considered vitamin E deficient. ID Date Data Source [id number] 02/02/2020 04:07:00 PM EDT [facility] ([facility], ) Name Value Range Interpretation Code Description Data Lia rce(s) Supporting Document(s) Rheumatoid factor [Units/volume] in Serum or Plasma Laboratory test result [facility] ([facility], ) ID Date Data Source [id number] 02/02/2020 04:07:00 PM EDT [facility] ([facility], ) Name Value Range Interpretation Code Description Data Lia rce(s) Supporting Document(s) Vitamin B12 Level 400 pg/mL [facility] ([facility], ) VITAMIN B12 NORMAL RANGE NORMAL 247 - 911 PG/ML INDETERMINATE 211 - 246 PG/ML DEFICIENT LESS THAN 211 PG/ML Folate 6.2 ng/mL [facility] ([facility], ) FOLATE NORMAL RANGE NORMAL GREATER THAN 5.4 NG/ML INDETERMINATE 3.4-5.4 NG/ML DEFICIENT LESS THAN 3.4 NG/ML ID Date Data Source [id number] 02/02/2020 04:07:00 PM EDT [facility] ([facility], ) Name Value Range Interpretation Code Description Data Lia rce(s) Supporting Document(s) Free T4 1.42 ng/dL 0.76-1.46 [facility] ([facility], ) ID Date Data Source [id number] 02/02/2020 04:07:00 PM EDT [facility] ([facility]) Name Value Range Interpretation Code Description Data Lia rce(s) Supporting Document(s) T Uptake 34 % 30-39 [facility] ([facility], ) Thyroxine (T4) 12.0 ug/dL 4.5-12.0 [facility] ([facility]) Thyroid Stimulating Hormone 0.954 uIU/ML 0.358-3.740 [facility] ([facility]) Free Thyroxine Index 4.1 % 1.3-4.8 [facility] ([facility]) ID Date Data Source [id number] 02/02/2020 04:07:00 PM EDT [facility] ([facility]) Name Value Range Interpretation Code Description Data Lia rce(s) Supporting Document(s) Albumin % 48.9 % 55.8-66.1 [facility] ([facility]) Xwgvv-1-Yaebijcg % 5.8 % 2.9-4.9 [facility] ([facility]) Lxbwr-6-Zxfrjjuob % 14.7 % 7.1-11.8 [facility] ([facility]) Qfzd-0-Kkzxrsdrc % 6.1 % 3.2-6.5 [facility] ([facility]) Tcpp-7-Eecwaesxk % 8.5 % 4.7-7.2 [facility] ([facility]) Gamma Globulin % 16.0 % 11.1-18.8 [facility] ([facility]) Pwaub-0-Vtdwdiwhg 0.39 GM/DL 0.17-0.41 [facility] ([facility]) Albumin 3.28 GM/DL 3.29-5.55 [facility] ([facility]) Nmkh-6-Lsipkojln 0.41 GM/DL 0.19-0.55 [facility] ([facility]) Ceiev-6-Nckujdmlu 0.98 GM/DL 0.42-0.99 [facility] ([facility]) Vmnb-8-Cdzbbbnim 0.57 GM/DL 0.28-0.60 [facility] ([facility]) Spep Interpretation Laboratory test result [facility] ([facility]) NO M-SPIKE(S)NOTED. Gamma Globulins 1.07 GM/DL 0.65-1.58 [facility] ([facility]) Total Protein 6.7 GM/DL 6.4-8.2 [facility] ([facility]) Laboratory test finding (navigational concept) Laboratory test result [facility] ([facility]) REV'D BY [employer] ID Date Data Source [id number] 02/02/2020 04:07:00 PM EDT [facility] ([facility], ) Name Value Range Interpretation Code Description Data Lia rce(s) Supporting Document(s) It Serum Interpretation Laboratory test result [facility] ([facility]) NO MONOCLONAL BANDS NOTED. Laboratory test finding (navigational concept) Laboratory test result [facility] ([facility]) REV'D BY [employer] ID Date Data Source [id number] 02/02/2020 04:07:00 PM EDT [facility] ([facility]) Name Value Range Interpretation Code Description Data Lia rce(s) Supporting Document(s) Erythrocyte sedimentation rate by 2H Westergren method 45 mm/hr 0-2 0 [facility] ([facility], ) ID Date Data Source [id number] 11/09/2019 11:17:00 AM EDT [facility] ([facility]) Name Value Range Interpretation Code Description Data Lia rce(s) Supporting Document(s) Laboratory test finding (navigational concept) 5.9 mg/L 1.3-20.0 [facility] ([facility], ) Laboratory test finding (navigational concept) 11.7 ug/mg 0.0-30.0 [facility] ([facility], ) Laboratory test finding (navigational concept) 50.5 mg/dL 30.0-125.0 [facility] ([facility]) ID Date Data Source [id number] 11/09/2019 11:17:00 AM EDT [facility] ([facility]) Name Value Range Interpretation Code Description Data Lia rce(s) Supporting Document(s) Triglyceride [Mass/volume] in Serum or Plasma 95 mg/dL 30-150 [facility] ([facility], ) Cholesterol in HDL [Mass/volume] in Serum or Plasma 42 mg/dL 35-60 [facility] ([facility], ) Cholesterol [Mass/volume] in Serum or Plasma 202 mg/dL 131-200 [facility] ([facility], ) Cholesterol in LDL [Mass/volume] in Serum or Plasma by calcu lation 141 CALC 50-159 [facility] ([facility]) ID Date Data Source [id number] 11/09/2019 11:17:00 AM EDT [facility] ([facility]) Name Value Range Interpretation Code Description Data Lia rce(s) Supporting Document(s) Glucose [Mass/volume] in Serum or Plasma 154 mg/dL 74-99 [facility] ([facility]) 100-125 mg/dL PRE-DIABETES/FASTING >126 mg/dL DIABETES/FASTING Urea nitrogen [Mass/volume] in Serum or Plasma 5 mg/dL 7-18 [facility] ([facility]) Sodium [Moles/volume] in Serum or Plasma 142 meq/L 136-145 [facility] ([facility]) Creatinine 0.7 mg/dL 0.6-1.3 [facility] ([facility]) Potassium [Moles/volume] in Serum or Plasma 3.8 meq/L 3.5-5.1 [facility] ([facility]) Chloride [Moles/volume] in Serum or Plasma 104 meq/L 98-107 [facility] ([facility]) Calcium [Mass/volume] in Serum or Plasma 8.1 mg/dL 8.5-10.1 [facility] ([facility]) NOTE: RESULT VERIFIED. Carbon dioxide, total [Moles/volume] in Serum or Plasma 31 meq/L 21 -32 [facility] ([facility]) Aspartate aminotransferase [Enzymatic activity/volume] in Serum or Plasma 78 U/L 15-37 [facility] ([facility]) NOTE: RESULT VERIFIED. Alkaline phosphatase isoenzyme [Units/volume] in Serum or Pl asma 70 mg/dL 46-116 [facility] ([facility]) Total Bilirubin 0.3 mg/dL 0.2-1.0 [facility] ([facility]) Proteinase 3 Ab [Units/volume] in Serum 7.2 g/dL 6.4-8.2 [facility] ([facility]) Albumin [Mass/volume] in Serum or Plasma 2.9 g/dL 3.4-5.0 [facility] ([facility]) NOTE: RESULT VERIFIED. Alanine aminotransferase [Enzymatic activity/volume] in Seru m or Plasma 77 U/L 12-78 [facility] ([facility]) Albumin/Globulin [Mass Ratio] in Serum or Plasma 0.67 CALC 1.00-1.90 [facility] ([facility]) Glomerular filtration rate/1.73 sq M pre dicted among non-blacks [Volume Rate/Area] in Serum or Plasma by Creatinine-based formula (MDRD) Laboratory test result [facility] ([facility], ) Glomerular filtration rate/1.73 sq M pre dicted among blacks [Volume Rate/Area] in Serum or Plasma by Creatinine-based formula (MDRD) Laboratory test result [facility] ([facility], ) <content>CHRONIC KIDNEY DISEASE STAGING PER NKF</content>
<content></content>
<content>STAGE I & II GFR >= 60 NORMAL TO MILDLY DECREASED</content>
<content>STAGE III GFR 30-59 MODERATELY DECREASED</content>
<content>STAGE IV GFR 15-29 SEVERELY DECREASED</content>
<content>STAGE V GFR <15 VERY LITTLE GFR LEFT</content>
<content>ESRD GFR <15 ON HONEYCOMB BLANKET MAKER</content>
<content></content>
<content></content> ID Date Data Source [id number] 11/09/2019 11:17:00 AM EDT [facility] ([facility], ) Name Value Range Interpretation Code Description Data Lia rce(s) Supporting Document(s) Hemoglobin A1c/Hemoglobin.total in Blood 6.5 g/dL 4.8-5.6 [facility] ([facility], ) Lab Result Notes: Pre-Diabetes 5.7 - 6.4 % Diabetes = or > 6.5% Glucose mean value [Mass/volume] in Blood Estimated fr om glycated hemoglobin 140 mg/dL 60-110 [facility] ([facility], ) ID Date Data Source [id number] 11/09/2019 11:17:00 AM EDT [facility] ([facility], ) Name Value Range Interpretation Code Description Data Lia rce(s) Supporting Document(s) Hemoglobin [Mass/volume] in Blood 12.9 g/dL 12.0-18.0 [facility] ([facility], ) Erythrocytes [#/volume] in Blood by Automated count 5.32 x10*6/UL 4.2 0-6.30 [facility] ([facility], ) Leukocytes [#/volume] in Blood by Automated count 9.6 x10*3/UL 4.1-10 .9 [facility] ([facility]) MCV 73.3 fL 80.0-97.0 [facility] ([facility]) MCH 24.3 pg 26.0-32.0 [facility] ([facility]) Hematocrit [Volume Fraction] of Blood by Automated count 39.0 % 3 7.0-51.0 [facility] ([facility]) Platelets [#/volume] in Blood by Automated count 295 x10*3/UL 140-440 [facility] ([facility]) MCHC 33.1 g/dL 31.0-38.0 [facility] ([facility]) Erythrocyte distribution width [Ratio] by Automated count 14.9 % 11.6-13.7 [facility] ([facility]) Platelet mean volume [Entitic volume] in Blood by Herrera-Bartolo 8.2 FL 7.8-11.0 [facility] ([facility]) Lymphocytes/100 leukocytes in Blood by Automated count 29.5 % 10. 0-58.5 [facility] ([facility]) Laboratory test finding (navigational concept) 6.7 % 1.7-9.3 [facility] ([facility]) Laboratory test finding (navigational concept) 0.7 x10*3/UL 0.1-0.6 [facility] ([facility]) Lymph # 2.8 x10*3/UL 0.6-4.1 [facility] ([facility]) Laboratory test finding (navigational concept) 63.8 % 37.0-92.0 [facility] ([facility]) Neutrophils [#/volume] in Semen by Manual count 6.1 x10*3/UL 2.0-7.8 [facility] ([facility]) ID Date Data Source [id number] 11/09/2019 11:17:00 AM EDT [facility] ([facility]) Name Value Range Interpretation Code Description Data Lia rce(s) Supporting Document(s) Microalbumin Urine 5.9 mg/L 1.3-20.0 [facility] ([facility]) Microalb/Creat Ratio 11.7 ug/mg 0.0-30.0 [facility] ( [facility]) Urine Creatinine 50.5 mg/dL 30.0-125.0 [facility] ([facility]) ID Date Data Source [id number] 11/09/2019 11:17:00 AM EDT [facility] ([facility]) Name Value Range Interpretation Code Description Data Lia rce(s) Supporting Document(s) Triglyceride [Mass/volume] in Serum or Plasma 95 mg/dL 30-150 [facility] ([facility]) Cholesterol [Mass/volume] in Serum or Plasma 202 mg/dL 131-200 [facility] ([facility]) Cholesterol in HDL [Mass/volume] in Serum or Plasma 42 mg/dL 35-60 [facility] ([facility]) Cholesterol in LDL [Mass/volume] in Serum or Plasma by calcu lation 141 CALC 50-159 [facility] ([facility]) ID Date Data Source [id number] 11/09/2019 11:17:00 AM EDT [facility] ([facility]) Name Value Range Interpretation Code Description Data Lia rce(s) Supporting Document(s) Glucose [Mass/volume] in Serum or Plasma 154 mg/dL 74-99 [facility] ([facility]) 100-125 mg/dL PRE-DIABETES/FASTING >126 mg/dL DIABETES/FASTING Urea nitrogen [Mass/volume] in Serum or Plasma 5 mg/dL 7-18 [facility] ([facility]) Sodium [Moles/volume] in Serum or Plasma 142 meq/L 136-145 [facility] ([facility]) Creatinine 0.7 mg/dL 0.6-1.3 [facility] Carbon dioxide, total [Moles/volume] in Serum or Plasma 31 meq/L 21 -32 [facility] ([facility]) Potassium [Moles/volume] in Serum or Plasma 3.8 meq/L 3.5-5.1 [facility] ([facility]) Chloride [Moles/volume] in Serum or Plasma 104 meq/L 98-107 [facility] ([facility]) Calcium [Mass/volume] in Serum or Plasma 8.1 mg/dL 8.5-10.1 [facility] ([facility]) NOTE: RESULT VERIFIED. Alkaline phosphatase isoenzyme [Units/volume] in Serum or Pl asma 70 mg/dL 46-116 [facility] ([facility]) Total Bilirubin 0.3 mg/dL 0.2-1.0 [facility] ([facility]) Aspartate aminotransferase [Enzymatic activity/volume] in Serum or Plasma 78 U/L 15-37 [facility] ([facility] ) NOTE: RESULT VERIFIED. Alanine aminotransferase [Enzymatic activity/volume] in Seru m or Plasma 77 U/L 12-78 [facility] ([facility]) Albumin [Mass/volume] in Serum or Plasma 2.9 g/dL 3.4-5.0 [facility] ([facility]) NOTE: RESULT VERIFIED. Proteinase 3 Ab [Units/volume] in Serum 7.2 g/dL 6.4-8.2 [facility] ([facility]) Glomerular filtration rate/1.73 sq M pre dicted among non-blacks [Volume Rate/Area] in Serum or Plasma by Creatinine-based formula (MDRD) Laboratory test result [facility] ([facility] ) A/G Ratio 0.67 CALC 1.00-1.90 [facility] Glomerular filtration rate/1.73 sq M pre dicted among blacks [Volume Rate/Area] in Serum or Plasma by Creatinine-based formula (MDRD) Laboratory test result [facility] <content>CHRONIC KIDNEY DISEASE STAGING PER NKF</content>
<content></content>
<content>STAGE I & II GFR >= 60 NORMAL TO MILDLY DECREASED</content>
<content>STAGE III GFR 30-59 MODERATELY DECREASED</content>
<content>STAGE IV GFR 15-29 SEVERELY DECREASED</content>
<content>STAGE V GFR <15 VERY LITTLE GFR LEFT</content>
<content>ESRD GFR <15 ON HONEYCOMB BLANKET MAKER</content>
<content></content> ID Date Data Source [id number] 11/09/2019 11:17:00 AM EDT [facility] ([facility]) Name Value Range Interpretation Code Description Data Lia rce(s) Supporting Document(s) Hemoglobin A1c/Hemoglobin.total in Blood 6.5 g/dL 4.8-5.6 [facility] ([facility]) Lab Result Notes: Pre-Diabetes 5.7 - 6.4 % Diabetes = or > 6.5% Glucose mean value [Mass/volume] in Blood Estimated fr om glycated hemoglobin 140 mg/dL 60-110 [facility] ([facility] ) ID Date Data Source [id number] 11/09/2019 11:17:00 AM EDT [facility] Name Value Range Interpretation Code Description Data Lia rce(s) Supporting Document(s) Leukocytes [#/volume] in Blood by Automated count 9.6 x10*3/UL 4.1-10 .9 [facility] ([facility]) Erythrocytes [#/volume] in Blood by Automated count 5.32 x10*6/UL 4.2 0-6.30 [facility] ([facility] Hemoglobin [Mass/volume] in Blood 12.9 g/dL 12.0-18.0 [facility] Hematocrit [Volume Fraction] of Blood by Automated count 39.0 % 3 7.0-51.0 [facility] ([facility]) MCH 24.3 pg 26.0-32.0 [facility] MCV 73.3 fL 80.0-97.0 [facility] [facility] MCHC 33.1 g/dL 31.0-38.0 [facility] ([facility]) Platelets [#/volume] in Blood by Automated count 295 x10*3/UL 140-440 [facility] [facility] Erythrocyte distribution width [Ratio] by Automated count 14.9 % 11.6-13.7 [facility] ([facility]) MPV 8.2 FL 7.8-11.0 [facility] ([place] [facility] Neut % 63.8 % 37.0-92.0 [facility] [facility] Lymph % 29.5 % 10.0-58.5 [facility] ([place] [facility] Mid % 6.7 % 1.7-9.3 [facility] [facility] Lymph # 2.8 x10*3/UL 0.6-4.1 [facility] ([facility]) Neut # 6.1 x10*3/UL 2.0-7.8 [facility] ([facility]) Mid # 0.7 x10*3/UL 0.1-0.6 [facility] ([facility]) ID Date Data Source [id number] 11/09/2019 11:17:00 AM EDT [facility] ([facility]) Name Value Range Interpretation Code Description Data Lia rce(s) Supporting Document(s) Hemoglobin A1c/Hemoglobin.total in Blood Laboratory test result [facility] [facility] ID Date Data Source [id number] 08/07/2019 12:00:00 PM EDT [facility] ([facility]) Name Value Range Interpretation Code Description Data Lia rce(s) Supporting Document(s) Hemoglobin A1c/Hemoglobin.total in Blood 7.1 g/dL 4.8-5.6 [facility] [facility] Lab Result Notes: Pre-Diabetes 5.7 - 6.4 % Diabetes = or > 6.5% Glucose mean value [Mass/volume] in Blood Estimated fr om glycated hemoglobin 157 mg/dL 60-110 [facility] ([facility] ) ID Date Data Source [id number] 08/07/2019 12:00:00 PM EDT [facility] ([facility]) Name Value Range Interpretation Code Description Data Lia rce(s) Supporting Document(s) Thyroxine (T4) free [Mass/volume] in Serum or Plasma 1.22 ng/dL 0.76- 1.46 [facility] ([facility]) ID Date Data Source [id number] 08/07/2019 12:00:00 PM EDT [facility] ([facility]) Name Value Range Interpretation Code Description Data Lia rce(s) Supporting Document(s) Thyrotropin [Units/volume] in Serum or Plasma by Detec tion limit <= 0.05 mIU/L 1.53 uIU/mL 0.36-3.74 [facility] ([facility] ) ID Date Data Source [id number] 08/07/2019 12:00:00 PM EDT [facility] ([facility]) Name Value Range Interpretation Code Description Data Lia rce(s) Supporting Document(s) Triglyceride [Mass/volume] in Serum or Plasma 64 mg/dL 30-150 [facility] ([facility]) Cholesterol [Mass/volume] in Serum or Plasma 192 mg/dL 131-200 [facility] ([facility]) Cholesterol in LDL [Mass/volume] in Serum or Plasma by calcu lation 130 CALC 50-159 [facility] ([facility]) Cholesterol in HDL [Mass/volume] in Serum or Plasma 49 mg/dL 35-60 [facility] ([facility]) ID Date Data Source [id number] 08/07/2019 12:00:00 PM EDT [facility] ([facility]) Name Value Range Interpretation Code Description Data Lia rce(s) Supporting Document(s) Urea nitrogen [Mass/volume] in Serum or Plasma 6 mg/dL 7-18 [facility] ([facility]) Glucose [Mass/volume] in Serum or Plasma 125 mg/dL 74-99 [facility] ([facility]) 100-125 mg/dL PRE-DIABETES/FASTING >126 mg/dL DIABETES/FASTING Potassium [Moles/volume] in Serum or Plasma 3.5 meq/L 3.5-5.1 [facility] ([facility]) Sodium [Moles/volume] in Serum or Plasma 141 meq/L 136-145 [facility] ([facility]) Creatinine 0.8 mg/dL 0.6-1.3 [facility] ([facility]) Carbon dioxide, total [Moles/volume] in Serum or Plasma 28 meq/L 21 -32 [facility] ([facility]) Calcium [Mass/volume] in Serum or Plasma 8.0 mg/dL 8.5-10.1 [facility] ([facility]) NOTE: RESULT VERIFIED. Chloride [Moles/volume] in Serum or Plasma 102 meq/L 98-107 [facility] ([facility]) Alanine aminotransferase [Enzymatic activity/volume] in Seru m or Plasma 54 U/L 12-78 [facility] ([facility]) Alkaline phosphatase isoenzyme [Units/volume] in Serum or Pl asma 73 mg/dL 46-116 [facility] ([facility]) Aspartate aminotransferase [Enzymatic activity/volume] in Serum or Plasma 34 U/L 15-37 [facility] ([facility] ) Total Bilirubin 0.3 mg/dL 0.2-1.0 [facility] ([facility]) Albumin [Mass/volume] in Serum or Plasma 3.2 g/dL 3.4-5.0 [facility] ([facility]) Proteinase 3 Ab [Units/volume] in Serum 7.2 g/dL 6.4-8.2 [facility] A/G Ratio 0.80 CALC 1.00-1.90 [facility] [facility] Glomerular filtration rate/1.73 sq M pre dicted among non-blacks [Volume Rate/Area] in Serum or Plasma by Creatinine-based formula (MDRD) Laboratory test result [facility] [facility] Glomerular filtration rate/1.73 sq M pre dicted among blacks [Volume Rate/Area] in Serum or Plasma by Creatinine-based formula (MDRD) Laboratory test result [facility] [facility] <content>CHRONIC KIDNEY DISEASE STAGING PER NKF</content>
<content></content>
<content>STAGE I & II GFR >= 60 NORMAL TO MILDLY DECREASED</content>
<content>STAGE III GFR 30-59 MODERATELY DECREASED</content>
<content>STAGE IV GFR 15-29 SEVERELY DECREASED</content>
<content>STAGE V GFR <15 VERY LITTLE GFR LEFT</content>
<content>ESRD GFR <15 ON HONEYCOMB BLANKET MAKER</content>
<content></content> ID Date Data Source [id number] 07/17/2019 01:05:00 PM EDT [facility] Name Value Range Interpretation Code Description Data Lia rce(s) Supporting Document(s) Coronavirus 2019 Nasopharygeal Laboratory test result [facility] ([facility]) Testing was performed using the jesus(R) SARS-CoV-2 test. This test was developed and its performance characteristics determined by [employer]. This test has not been FDA cleared [...] revoked sooner. Performed at: RN - [facility] [address] [id number] Direct Mail Coordinator: Christy Hoover MD, Phone: [phone] Not Detected ID Date Data Source [id number] 07/17/2019 01:05:00 PM EDT [facility] Name Value Range Interpretation Code Description Data Lia rce(s) Supporting Document(s) SARS CORONAVIRUS 2 RNA [facility] This lab was ordered by [facility] and reported by [facility]. Procedure Vital Signs ID Date Data Source [id number] Name Value Range Interpretation Code Description Data Source(s) Body mass index (BMI) [Ratio] 34.4 kg/m2 34.4 k g/m2 [facility] Body height 65 [in_i] 65 [in_i] [facility] ([facility]) 5'5" Body weight 207.00 [lb_av] 207.00 [lb_av] [facility] ([facility]) Body temperature 95.3 [degF] 95.3 [degF] [facility] ([facility]) Oxygen saturation in Arterial blood by Pulse oximetry 98 % 98 % [facility] ([facility]) Respiratory rate 16 /min 16 /min [facility] ( [facility]) Heart rate 128 /min 128 /min [facility] ([facility]) Diastolic blood pressure 90 mm[Hg] 90 mm[Hg] [facility] ([facility]) Systolic blood pressure 150 mm[Hg] 150 mm[Hg] [facility] Body mass index (BMI) [Ratio] 34.6 kg/m2 34.6 k g/m2 [facility] ([facility]) Body weight 211.25 [lb_av] 211.25 [lb_av] [facility] ([facility]) Body height 65.5 [in_i] 65.5 [in_i] [facility] ([facility]) 5'5.50" Heart rate 70 /min 70 /min [facility] ([facility]) Diastolic blood pressure 80 mm[Hg] 80 mm[Hg] [facility] ([facility]) Systolic blood pressure 126 mm[Hg] 126 mm[Hg] [facility] ([facility]) [place] body weight 136 [lb_av] 136 [lb_av] [facility] ([facility], ) Body mass index (BMI) [Ratio] 34.4 kg/m2 34.4 k g/m2 [facility] ([facility], ) Body weight 210.00 [lb_av] 210.00 [lb_av] [facility] ([facility], ) Body height 65.5 [in_i] 65.5 [in_i] [facility] ([facility], ) 5'5.50" Respiratory rate 12 /min 12 /min [facility] Body mass index (BMI) [Ratio] 35.1 kg/m2 35.1 k g/m2 [facility] ([facility], ) Body weight 214.00 [lb_av] 214.00 [lb_av] [facility] ([facility]) Body height 65.5 [in_i] 65.5 [in_i] [facility] ([facility], ) Heart rate 70 /min 70 /min [facility] ([facility], ) Diastolic blood pressure 80 mm[Hg] 80 mm[Hg] [facility] ([facility], ) Systolic blood pressure 128 mm[Hg] 128 mm[Hg] M [facility] ([facility], ) Body mass index (BMI) [Ratio] 35.1 kg/m2 35.1 k g/m2 [facility] ([facility]) Body weight 214.00 [lb_av] 214.00 [lb_av] [facility] ([facility]) Body height 65.5 [in_i] 65.5 [in_i] [facility] ([facility]) 5'5.50" Heart rate 70 /min 70 /min [facility] Diastolic blood pressure 80 mm[Hg] 80 mm[Hg] [facility] ([facility]) Systolic blood pressure 128 mm[Hg] 128 mm[Hg] [facility] Body mass index (BMI) [Ratio] 34.9 kg/m2 34.9 k g/m2 [facility] ([facility]) Body weight 213.12 [lb_av] 213.12 [lb_av] [facility] ([facility]) Body height 65.5 [in_i] 65.5 [in_i] [facility] ([facility]) 50" Heart rate 76 /min 76 /min [facility] ([facility]) Diastolic blood pressure 80 mm[Hg] 80 mm[Hg] [facility] ([facility]) Systolic blood pressure 140 mm[Hg] 140 mm[Hg] [facility] ([facility]) Body mass index (BMI) [Ratio] 34.4 kg/m2 34.4 k g/m2 [facility] ([facility]) Body height 65.5 [in_i] 65.5 [in_i] [facility] ([facility]) 50" Body weight 210.00 [lb_av] 210.00 [lb_av] [facility] ([facility]) Body temperature 97.8 [degF] 97.8 [degF] [facility]) Oxygen saturation in Arterial blood by Pulse oximetry 99 % 99 % [facility] ([facility]) Respiratory rate 20 /min 20 /min [facility] ( [facility]) Heart rate 85 /min 85 /min [facility] Diastolic blood pressure 90 mm[Hg] 90 mm[Hg] [facility] ([facility]) Systolic blood pressure 138 mm[Hg] 138 mm[Hg] [facility] ([facility])
--- NOTE | 2020-04-26 08:55 | ECGEPIP ---
[facility] - ED Test Date: 2020-04-25 Pat Name: EARNEST STRATTON Department: Room: - Gender: Female Tarp Repairer: HELGA : 1975 Requested By: HANNAH Mahoney Order Number: [id number] Reading MD: Varghese Singh Measurements Intervals [place] Rate: 88 P: 52 WV: 163 QRS: 32 QRSD: 97 T: 36 QT: 387 QTc: 469 Interpretive Statements SINUS RHYTHM LOW QRS VOLTAGE IN PRECORDIAL LEADS INCOMPLETE RIGHT BUNDLE BRANCH BLOCK NO PRIORS FOR COMPARISON Electronically Signed on 04-26-2020 8:55:27 EST by Varghese Singh
== END 2020-04-26 00:52 | disposition home or self-care (01) ==
LOC: M ED 20:29
DX: E83.42 Hypomagnesemia (principal); I10 Essential (primary) hypertension; J45.909 Unspecified asthma, uncomplicated; K21.9 Gastro-esophageal reflux disease without esophagitis; Z88.1 Allergy status to other antibiotic agents; Z88.2 Allergy status to sulfonamides; Z91.040 Latex allergy status; Z79.899 Other long term (current) drug therapy; F17.210 Nicotine dependence, cigarettes, uncomplicated
CPT/HCPCS: 93005; 96365; 96366; 99284; J3475

== ENCOUNTER → 2020-04-25 | Outpatient (REF) | payer OTHER ==
[~2020-04-25] MED LIST changes: +DERM1TAB2 PO; +MAGN400C PO
[2020-04-25 19:28] LABS: ALBUMIN 3.1 GM/DL (3.2-5.2); ALT/SGPT 54 U/L (12-78); BILIRUBIN,TOTAL 0.3 MG/DL (0.2-1.0); BLOOD UREA NITROGEN 4 MG/DL (7-18); CALCIUM LEVEL 7.3 MG/DL (8.5-10.1); CARBON DIOXIDE LEVEL 29 MEQ/L (21-32); CHLORIDE LEVEL 103 MEQ/L (98-107); CREATININE FOR GFR 0.55 MG/DL (0.55-1.30); GLOMERULAR FILTRATION RATE > 60.0 (>58); GLUCOSE, FASTING 94 MG/DL (70-100); MAGNESIUM LEVEL 0.6 MG/DL (1.8-2.4); POTASSIUM SERUM 3.9 MEQ/L (3.5-5.1); SODIUM LEVEL 138 MEQ/L (136-145); TOTAL PROTEIN 6.8 GM/DL (6.4-8.2)
== END ==
LOC: M LABDRWAD 16:26
PROVIDERS: ATTEND Family Medicine
DX: E83.51 Hypocalcemia (principal); E83.42 Hypomagnesemia

== ENCOUNTER → 2020-05-03 | Outpatient (REF) | payer OTHER ==
[~2020-05-03] MED LIST changes: +DERM1TAB2 PO; +MAGN400C PO
[2020-05-03 18:30] LABS: ALBUMIN 3.8 GM/DL (3.2-5.2); ALT/SGPT 108 U/L (12-78); BILIRUBIN,TOTAL 0.3 MG/DL (0.2-1.0); BLOOD UREA NITROGEN 7 MG/DL (7-18); CARBON DIOXIDE LEVEL 29 MEQ/L (21-32); CHLORIDE LEVEL 97 MEQ/L (98-107); GLOMERULAR FILTRATION RATE > 60.0 (>58); GLUCOSE, FASTING 128 MG/DL (70-100); MAGNESIUM LEVEL 1.5 MG/DL (1.8-2.4); POTASSIUM SERUM 4.7 MEQ/L (3.5-5.1); SODIUM LEVEL 133 MEQ/L (136-145); TOTAL PROTEIN 8.5 GM/DL (6.4-8.2)
== END ==
LOC: M LAB REF 16:25
PROVIDERS: ATTEND Family Medicine
DX: E11.9 Type 2 diabetes mellitus without complications (principal); E83.51 Hypocalcemia; R25.2 Cramp and spasm; E03.9 Hypothyroidism, unspecified

== ENCOUNTER → 2020-05-08 | Outpatient (REF) | payer OTHER | LOC: M LAB REF 16:06 | PROVIDERS: ATTEND Family Medicine | DX: E83.51 Hypocalcemia (principal) ==

== ENCOUNTER → 2020-06-28 | Outpatient (REF) | payer OTHER ==
[2020-06-28 17:25] LABS: BASO % 0.3 % (0.0-1.0); EOS # 0.1 10^3/uL (0.0-0.5); EOS % 1.1 % (0.0-3.0); HEMATOCRIT 38.1 % (36.0-47.0); HEMOGLOBIN 11.8 g/dl (12.0-15.5); LYMPH # 3.9 10^3/uL (1.5-5.0); LYMPH % 35.2 % (24.0-44.0); MEAN CORPUSCULAR HEMOGLOBIN 23.7 pg (27.0-33.0); MEAN CORPUSCULAR VOLUME 76.7 fl (80.0-96.0); MONO # 0.8 10^3/uL (0.0-0.8); MONO % 7.2 % (2.0-8.0); NEUTROPHILS # 6.2 10^3/uL (1.5-8.5); NEUTROPHILS % 55.9 % (36.0-66.0); PLATELET COUNT, AUTOMATED 291 10^3/uL (150-450); RED BLOOD COUNT 4.97 10^6/uL (4.00-5.40)
[2020-06-28 17:52] LABS: ALBUMIN 3.1 GM/DL (3.2-5.2); ALT/SGPT 33 U/L (12-78); BILIRUBIN,TOTAL 0.1 MG/DL (0.2-1.0); BLOOD UREA NITROGEN 4 MG/DL (7-18); CALCIUM LEVEL 9.2 MG/DL (8.5-10.1); CARBON DIOXIDE LEVEL 27 MEQ/L (21-32); CHLORIDE LEVEL 106 MEQ/L (98-107); CREATININE FOR GFR 0.56 MG/DL (0.55-1.30); GLOMERULAR FILTRATION RATE > 60.0 (>58); GLUCOSE, FASTING 120 MG/DL (70-100); MAGNESIUM LEVEL 1.3 MG/DL (1.8-2.4); POTASSIUM SERUM 3.9 MEQ/L (3.5-5.1); SODIUM LEVEL 140 MEQ/L (136-145); TOTAL PROTEIN 6.9 GM/DL (6.4-8.2)
[2020-06-28 17:55] LABS: TOTAL 25(OH) VITAMIN D 63.4 NG/ML (30.0-100.0)
== END ==
LOC: M LABDRWAD 17:06
PROVIDERS: ATTEND Family Medicine
DX: Z00.00 Encounter for general adult medical examination without abnormal findings (principal); R25.2 Cramp and spasm; E55.9 Vitamin D deficiency, unspecified; I10 Essential (primary) hypertension

== ENCOUNTER → 2020-07-15 | Outpatient (REF) | payer OTHER ==
[2020-07-15 18:42] LABS: BLOOD UREA NITROGEN 5 MG/DL (7-18); CALCIUM LEVEL 9.2 MG/DL (8.5-10.1); CARBON DIOXIDE LEVEL 26 MEQ/L (21-32); CHLORIDE LEVEL 106 MEQ/L (98-107); CREATININE FOR GFR 0.64 MG/DL (0.55-1.30); GLOMERULAR FILTRATION RATE > 60.0 (>58); GLUCOSE, FASTING 178 MG/DL (70-100); MAGNESIUM LEVEL 1.4 MG/DL (1.8-2.4); POTASSIUM SERUM 3.7 MEQ/L (3.5-5.1); SODIUM LEVEL 139 MEQ/L (136-145)
== END ==
LOC: M LABDRWAD 16:33
PROVIDERS: ATTEND Family Medicine
DX: Z00.00 Encounter for general adult medical examination without abnormal findings (principal); R53.83 Other fatigue

== ENCOUNTER → 2020-09-06 | Outpatient (REF) | payer OTHER ==
[2020-09-06 11:56] LABS: CLOSTRIDIUM DIFFICILE PCR NEGATIVE (NEGATIVE)
[2020-09-17 14:09] LABS: FATS NEUTRAL Normal (.); FATS TOTAL Normal (.)
== END ==
LOC: M LAB REF 09:08
PROVIDERS: ATTEND Internal Medicine Gastroenterology
DX: R19.7 Diarrhea, unspecified (principal)

== ENCOUNTER → 2020-10-07 | Outpatient (CLI) | payer OTHER ==
[~2020-10-07] MED LIST changes: +MAGN500T2 PO; +METF500T13; +MUCI600T31 PO; +PANT40TA29; +SLOWTAB2; +VITA200020 PO; +ZYRTTAB8 PO
== END ==
LOC: M LABSMTC 09:32
PROVIDERS: ATTEND Anesthesiology
DX: Z01.818 Encounter for other preprocedural examination (principal); Z11.52 Encounter for screening for COVID-19

== ENCOUNTER 2020-10-11 11:16 | Day surgery (SDC) | payer OTHER ==
[~2020-10-11] VITALS: Ht 165.1 cm; Wt 89.8 kg
[~2020-10-11 11:16] MED LIST changes: +NS 1,000 ML IV ONE
[2020-10-11] MEDS ORDERED: fentaNYL 100 MCG/2 ML INJECTION (J3010) As Ordered ONE (11:41)
[2020-10-11] MEDS ORDERED: propofoL 500 MG/50 ML VIAL As Ordered ONE (11:42)
[2020-10-11] MEDS ORDERED: LIDOCAINE 2% 100MG/5ML SDV (FOR ANES.) As Ordered ONE (11:58)
[2020-10-11] MEDS ORDERED: ONDANSETRON 4MG/2ML VIAL As Ordered ONE (12:35)
--- NOTE | 2020-10-11 12:47 | ROOR ---
Patient Name: Branden Weller Procedure Date: 10/11/2020 12:06 PM Date of : 1975 Age: 45 Room: [facility] Gender: Female Note Status: Finalized Procedure: Upper GI endoscopy Indications: Heartburn, Suspected gastro-esophageal reflux disease Providers: Bentley Staton MD Referring MD: Dash Dia MD Requesting Provider: Medicines: Monitored Anesthesia Care Complications: No immediate complications. Procedure: Pre-Anesthesia Assessment: - Prior to the procedure, a History and Physical was performed, and patient medications and allergies were reviewed. The patient is competent. The risks and benefits of the procedure and the sedation options and risks were discussed with the patient. All questions were answered and informed consent was obtained. Patient identification and proposed procedure were verified by the physician, the nurse and the anesthesiologist in the procedure room. Mental Status Examination: alert and oriented. Airway Examination: normal oropharyngeal airway and neck mobility. Respiratory Examination: clear to auscultation. CV Examination: normal. Prophylactic Antibiotics: The patient does not require prophylactic antibiotics. Prior Anticoagulants: The patient has taken no previous anticoagulant or antiplatelet agents. ASA Grade Assessment: II - A patient with mild systemic disease. After reviewing the risks and benefits, the patient was deemed in satisfactory condition to undergo the procedure. The anesthesia plan was to use monitored anesthesia care (MAC). Immediately prior to administration of medications, the patient was re-assessed for adequacy to receive sedatives. The heart rate, respiratory rate, oxygen saturations, blood pressure, adequacy of pulmonary ventilation, and response to care were monitored throughout the procedure. The physical status of the patient was re-assessed after the procedure. The Endoscope was introduced through the mouth, and advanced to the second part of duodenum. The upper GI endoscopy was accomplished without difficulty. The patient tolerated the procedure well. Findings: One tongue of salmon-colored mucosa was present from 35 to 38 cm. Hiatal narrowing was identified at 40 cm. The maximum longitudinal extent of these esophageal mucosal changes was 3 cm in length. Biopsies were taken with a cold forceps for histology. Verification of patient identification for the specimen was done by the physician and nurse using the patient's name, date and medical record number. Estimated blood loss was minimal. A small hiatal hernia was present. Scattered moderate inflammation characterized by erythema, friability and granularity was found in the gastric body and in the gastric antrum. Biopsies were taken with a cold forceps for Helicobacter pylori testing. The duodenal bulb and second portion of the duodenum were normal. Impression: - Belmont-colored mucosa suggestive of short-segment Silva's esophagus. Biopsied. - Small hiatal hernia. - Gastritis. Biopsied. - Normal duodenal bulb and second portion of the duodenum. Recommendation: - Patient has a contact number available for emergencies. The signs and symptoms of potential delayed complications were discussed with the patient. Return to normal activities tomorrow. Written discharge instructions were provided to the patient. - High fiber diet. - Continue present medications. - Await pathology results. - Follow an antireflux regimen. - Return to GI clinic in [facility] (address [address], [address], [place], [facility]) in 4 -- 6 weeks. Please call GI clinic @ [phone] for apppointment date and time. - Return to primary care physician. Procedure Code(s): --- Professional --- 23574, Esophagogastroduodenoscopy, flexible, transoral; with biopsy, single or multiple Diagnosis Code(s): --- Professional --- K22.8, Other specified diseases of esophagus K44.9, Diaphragmatic hernia without obstruction or gangrene K29.70, Gastritis, unspecified, without bleeding R12, Heartburn CPT copyright 2019 [employer]. All rights reserved. The codes documented in this report are preliminary and upon medical records coder review may be revised to meet current compliance requirements. Bentley Staton MD Bentley Staton MD 10/11/2020 12:47:13 PM Electronically signed by Bentley Staton MD Number of Addenda: 0 Note Initiated On: 10/11/2020 12:06 PM Estimated Blood Loss: Estimated blood loss was minimal.
--- NOTE | 2020-10-11 13:01 | ROOR ---
Patient Name: Branden Weller Procedure Date: 10/11/2020 12:11 PM Date of : 1975 Age: 45 Room: [facility] Gender: Female Note Status: Finalized Procedure: Colonoscopy Indications: Chronic diarrhea, Change in bowel habits Providers: Bentley Staton MD Referring MD: Dash Dia MD Requesting Provider: Medicines: Monitored Anesthesia Care Complications: No immediate complications. Procedure: Pre-Anesthesia Assessment: - Prior to the procedure, a History and Physical was performed, and patient medications and allergies were reviewed. The patient is competent. The risks and benefits of the procedure and the sedation options and risks were discussed with the patient. All questions were answered and informed consent was obtained. Patient identification and proposed procedure were verified by the physician, the nurse and the anesthesiologist in the procedure room. Mental Status Examination: alert and oriented. Airway Examination: normal oropharyngeal airway and neck mobility. Respiratory Examination: clear to auscultation. CV Examination: normal. Prophylactic Antibiotics: The patient does not require prophylactic antibiotics. Prior Anticoagulants: The patient has taken no previous anticoagulant or antiplatelet agents. ASA Grade Assessment: II - A patient with mild systemic disease. After reviewing the risks and benefits, the patient was deemed in satisfactory condition to undergo the procedure. The anesthesia plan was to use monitored anesthesia care (MAC). Immediately prior to administration of medications, the patient was re-assessed for adequacy to receive sedatives. The heart rate, respiratory rate, oxygen saturations, blood pressure, adequacy of pulmonary ventilation, and response to care were monitored throughout the procedure. The physical status of the patient was re-assessed after the procedure. The Colonoscope was introduced through the anus and advanced to the terminal ileum, with identification of the appendiceal orifice and IC valve. The colonoscopy was performed without difficulty. The patient tolerated the procedure well. The quality of the bowel preparation was good. The terminal ileum, ileocecal valve, appendiceal orifice, and rectum were photographed. Scope insertion time was 2 minutes. Scope withdrawal time was 9 minutes. The total duration of the procedure was 12 minutes. Findings: The perianal and digital rectal examinations were normal. The terminal ileum appeared normal. Multiple small and large-mouthed diverticula were found in the sigmoid colon and descending colon. There was no evidence of diverticular bleeding. Non-bleeding external and internal hemorrhoids were found during retroflexion. The hemorrhoids were small. Impression: - The examined portion of the ileum was normal. - Moderate diverticulosis in the sigmoid colon and in the descending colon. There was no evidence of diverticular bleeding. - Non-bleeding external and internal hemorrhoids. - No specimens collected. Recommendation: - Patient has a contact number available for emergencies. The signs and symptoms of potential delayed complications were discussed with the patient. Return to normal activities tomorrow. Written discharge instructions were provided to the patient. - High fiber diet. - Continue present medications. - Await pathology results. - Repeat colonoscopy in 5-10 years due to personal history of colon polyps in past Colonoscopy. - Telephone GI clinic if symptomatic. - Return to primary care physician. Procedure Code(s): --- Professional --- 38557, Colonoscopy, flexible; diagnostic, including collection of specimen(s) by brushing or washing, when performed (separate procedure) Diagnosis Code(s): --- Professional --- K64.8, Other hemorrhoids K52.9, Noninfective gastroenteritis and colitis, unspecified R19.4, Change in bowel habit K57.30, Diverticulosis of large intestine without perforation or abscess without bleeding CPT copyright 2019 [employer]. All rights reserved. The codes documented in this report are preliminary and upon pastry artist review may be revised to meet current compliance requirements. Bentley Staton MD Bentley Staton MD 10/11/2020 1:01:11 PM Electronically signed by Bentley Staton MD Number of Addenda: 0 Note Initiated On: 10/11/2020 12:11 PM Estimated Blood Loss: Estimated blood loss: none.
[2020-10-11 13:10] VITALS: BP 161/85
== END 2020-10-11 13:15 | disposition home or self-care (01) ==
LOC: M OPP 11:16
PROVIDERS: ATTEND Internal Medicine Gastroenterology
DX: K57.30 Diverticulosis of large intestine without perforation or abscess without bleeding (principal); K52.9 Noninfective gastroenteritis and colitis, unspecified; K64.8 Other hemorrhoids; K29.70 Gastritis, unspecified, without bleeding; K22.8 Other specified diseases of esophagus; K44.9 Diaphragmatic hernia without obstruction or gangrene; R12 Heartburn; Z80.0 Family history of malignant neoplasm of digestive organs; Z79.84 Long term (current) use of oral hypoglycemic drugs; Z79.899 Other long term (current) drug therapy; Z88.2 Allergy status to sulfonamides; Z91.040 Latex allergy status; F17.210 Nicotine dependence, cigarettes, uncomplicated
CPT/HCPCS: 43239; 45378; 88305; J2405; J3010

== ENCOUNTER → 2020-12-03 | Outpatient (REF) | payer OTHER ==
[~2020-12-03] MED LIST changes: -NS 1,000 ML IV ONE
[2020-12-03 17:17] LABS: BASO # 0.1 10^3/uL (0.0-0.2); BASO % 0.7 % (0.0-1.0); EOS # 0.1 10^3/uL (0.0-0.5); EOS % 0.9 % (0.0-3.0); HEMATOCRIT 41.1 % (36.0-47.0); HEMOGLOBIN 12.5 g/dl (12.0-15.5); LYMPH # 2.8 10^3/uL (1.5-5.0); LYMPH % 24.6 % (24.0-44.0); MEAN CORPUSCULAR HEMOGLOBIN 22.3 pg (27.0-33.0); MEAN CORPUSCULAR HGB CONC 30.4 g/dl (32.0-36.5); MEAN CORPUSCULAR VOLUME 73.4 fl (80.0-96.0); MONO # 0.8 10^3/uL (0.0-0.8); MONO % 7.2 % (2.0-8.0); NEUTROPHILS # 7.6 10^3/uL (1.5-8.5); NEUTROPHILS % 66.2 % (36.0-66.0); PLATELET COUNT, AUTOMATED 245 10^3/uL (150-450); WHITE BLOOD COUNT 11.5 10^3/uL (4.0-10.0)
[2020-12-03 17:25] LABS: BLOOD UREA NITROGEN 4 MG/DL (7-18); CALCIUM LEVEL 8.7 MG/DL (8.5-10.1); CARBON DIOXIDE LEVEL 25 MEQ/L (21-32); CHLORIDE LEVEL 105 MEQ/L (98-107); CREATININE FOR GFR 0.68 MG/DL (0.55-1.30); GLOMERULAR FILTRATION RATE > 60.0 (>58); GLUCOSE, FASTING 155 MG/DL (70-100); POTASSIUM SERUM 4.2 MEQ/L (3.5-5.1); SODIUM LEVEL 136 MEQ/L (136-145)
== END ==
LOC: M LABDRWAD 15:22
PROVIDERS: ATTEND Family Medicine
DX: E83.42 Hypomagnesemia (principal)

== ENCOUNTER → 2020-12-27 | Outpatient (CLI) | payer OTHER ==
[~2020-12-27] MED LIST changes: +ISOVUE-370 76% 100ML VIAL As Ordered ONE
--- NOTE | 2020-12-30 10:23 | REP ---
INDICATION: DYSPHAGIA. History of congenital esophageal atresia. COMPARISON: None. TECHNIQUE: Helical scanning is acquired following the intravenous injection of 75 mL of Isovue 370. 3 mm axial images re-formatted. Coronal and sagittal MPR images are generated. FINDINGS: Digital preliminary optical coating technician radiograph is unremarkable. The frontal, ethmoid, sphenoid, and maxillary sinuses are clear. Mastoid aeration is normal and symmetric. No evidence of paranasal sinusitis. No intraorbital abnormality is appreciated. Parotid and submandibular glands are normal and symmetric. Tonsillar and peritonsillar soft tissues are unremarkable. Epiglottis and aryepiglottic folds appear intact. The glottic and subglottic airway is unremarkable. There is some air in the cervicothoracic esophagus. No mass or abnormal fluid collection is seen. The lung apices are clear. Thyroid lobes are normal and some homogeneous. No vascular abnormality is appreciated. There are degenerative spondylosis changes in the cervical spine mild in degree. IMPRESSION: No neck mass or adenopathy seen. <Electronically signed by Kendrick Perez > 12/30/20 [id number]
== END ==
LOC: M RAD 16:19
PROVIDERS: ATTEND Otolaryngology
DX: R13.10 Dysphagia, unspecified (principal)

== ENCOUNTER → 2021-02-04 | Outpatient (REF) | payer OTHER ==
[~2021-02-04] MED LIST changes: -ISOVUE-370 76% 100ML VIAL As Ordered ONE
[2021-02-05 13:57] LABS: ALBUMIN 3.2 GM/DL (3.2-5.2); BILIRUBIN,TOTAL 0.2 MG/DL (0.2-1.0); CALCIUM LEVEL 9.5 MG/DL (8.5-10.1); CREATININE FOR GFR 1.1 MG/DL (0.55-1.30); GLOMERULAR FILTRATION RATE 57.2 (>58); MAGNESIUM LEVEL 1.4 MG/DL (1.8-2.4); POTASSIUM SERUM 5.2 MEQ/L (3.5-5.1); TOTAL PROTEIN 7.4 GM/DL (6.4-8.2)
== END ==
LOC: M LABDRWAD 11:57
PROVIDERS: ATTEND Family Medicine
DX: E83.42 Hypomagnesemia (principal)

== ENCOUNTER → 2021-02-06 | Outpatient (CLI) | payer OTHER ==
[~2021-02-06] MED LIST changes: +E-Z-GAS II EFFERVESCENT PACKET (SODIUM BICARB./CITRIC ACID/SIMETHICONE) As Ordered ONE; +E-Z-HD 98% w/w 340GM SUSP BTL As Ordered ONE; +E-Z-PAQUE 96% w/w SUSP 176GM BTL As Ordered ONE
--- NOTE | 2021-02-06 17:26 | REP ---
INDICATION: DYSPHAGIA. COMPARISON: None TECHNIQUE: This procedure was performed by URMILA Joshi, under the direct supervision of Dr. Shepard. Images were reviewed with Dr. Shepard prior to dictation. Liquid barium and gas producing crystals were given in the erect position, as well as liquid barium in the prone oblique position in order to perform a double contrast esophagram examination. FINDINGS: A single view PA chest x-ray is submitted as a high lift operator film. The superior mediastinal structures are midline. The heart size is within normal limits. The lungs are clear. The oral and pharyngeal stages of deglutition were unremarkable. Esophageal transport is prompt and efficient and there is no evidence of esophagitis, stricture, or mucosal ring. 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 There is no evidence of a hiatal hernia. Gastroesophageal below the level of heather. Minor tertiary contractions were noted on this examination. 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 There is no evidence of a hiatal hernia. Gastroesophageal reflux was observed to below the level of the heather. Minor tertiary contractions were noted on this examination. One minute of fluoroscopy time was utilized for this procedure. Some fluoroscopic images are performed with last image hold technology. These images require no additional radiation. <Electronically signed by Naya Hernandez > 02/06/21 1713 <Electronically signed by Pio Shepard > 02/06/21 1722
== END ==
LOC: M RAD 09:58
PROVIDERS: ATTEND Otolaryngology
DX: R13.10 Dysphagia, unspecified (principal)

== ENCOUNTER → 2021-03-13 | Outpatient (REF) | payer OTHER ==
[~2021-03-13] MED LIST changes: -E-Z-GAS II EFFERVESCENT PACKET (SODIUM BICARB./CITRIC ACID/SIMETHICONE) As Ordered ONE; -E-Z-HD 98% w/w 340GM SUSP BTL As Ordered ONE; -E-Z-PAQUE 96% w/w SUSP 176GM BTL As Ordered ONE
== END ==
LOC: M SFHCWAGY 13:56
PROVIDERS: ATTEND Nurse Practitioner Women's Health
DX: Z12.4 Encounter for screening for malignant neoplasm of cervix (principal); Z01.419 Encounter for gynecological examination (general) (routine) without abnormal findings

== ENCOUNTER → 2021-03-13 | Outpatient (CLI) | payer OTHER | LOC: M WHC 08:26 | PROVIDERS: ATTEND Nurse Practitioner Women's Health | DX: Z12.31 Encounter for screening mammogram for malignant neoplasm of breast (principal) ==

== ENCOUNTER → 2021-03-27 | Outpatient (REF) | payer OTHER ==
[2021-03-27 18:39] LABS: HEMOGLOBIN A1c 6.4 %
[2021-03-27 19:00] LABS: MALB URINE SIEMENS 9.5 MG/L; MAU/CREAT RATIO 6.7 MCG/MG (0.0-30.0)
[2021-03-27 19:26] LABS: ALBUMIN 2.9 GM/DL (3.2-5.2); ALT/SGPT 42 U/L (12-78); BILIRUBIN,TOTAL 0.1 MG/DL (0.2-1.0); BLOOD UREA NITROGEN 7 MG/DL (7-18); CALCIUM LEVEL 7.8 MG/DL (8.5-10.1); CARBON DIOXIDE LEVEL 24 MEQ/L (21-32); CHLORIDE LEVEL 109 MEQ/L (98-107); CREATININE FOR GFR 0.73 MG/DL (0.55-1.30); GLOMERULAR FILTRATION RATE > 60.0 (>58); GLUCOSE, FASTING 96 MG/DL (70-100); MAGNESIUM LEVEL 0.7 MG/DL (1.8-2.4); POTASSIUM SERUM 3.7 MEQ/L (3.5-5.1); SODIUM LEVEL 141 MEQ/L (136-145)
== END ==
LOC: M LABDRWAD 17:08
PROVIDERS: ATTEND Family Medicine
DX: E03.9 Hypothyroidism, unspecified (principal); E83.42 Hypomagnesemia; E11.9 Type 2 diabetes mellitus without complications

== ENCOUNTER → 2021-05-28 | Outpatient (REF) | payer OTHER ==
[2021-05-28 20:00] LABS: ALBUMIN 3.4 GM/DL (3.2-5.2); ALT/SGPT 62 U/L (12-78); BILIRUBIN,TOTAL 0.2 MG/DL (0.2-1.0); BLOOD UREA NITROGEN 6 MG/DL (7-18); CALCIUM LEVEL 9.5 MG/DL (8.5-10.1); CARBON DIOXIDE LEVEL 25 MEQ/L (21-32); CHLORIDE LEVEL 104 MEQ/L (98-107); CREATININE FOR GFR 0.75 MG/DL (0.55-1.30); GLOMERULAR FILTRATION RATE > 60.0 (>58); GLUCOSE, FASTING 111 MG/DL (70-100); MAGNESIUM LEVEL 1.6 MG/DL (1.8-2.4); POTASSIUM SERUM 4.4 MEQ/L (3.5-5.1); SODIUM LEVEL 137 MEQ/L (136-145); TOTAL PROTEIN 7.6 GM/DL (6.4-8.2)
== END ==
LOC: M WUC 18:29
PROVIDERS: ATTEND Family Medicine
DX: E83.42 Hypomagnesemia (principal)

== ENCOUNTER → 2021-06-28 | Outpatient (CLI) | payer OTHER ==
[~2021-06-28] MED LIST changes: +BENZ-18 PO; +CHOL4POW3 PO; +GUAI400T9 PO; +LOPE2TAB12 PO; +MAGN400T33 PO; +META0.52 PO; +POTA1TAB23 PO
== END ==
LOC: M LABSMTC 09:20
PROVIDERS: ATTEND Anesthesiology
DX: Z01.818 Encounter for other preprocedural examination (principal); Z11.52 Encounter for screening for COVID-19

== ENCOUNTER 2021-07-03 06:50 | Day surgery (SDC) | payer OTHER ==
[~2021-07-03] VITALS: Ht 165.1 cm; Wt 91.2 kg
[~2021-07-03 06:50] MED LIST changes: +NS 1,000 ML IV ONE
[2021-07-03] MEDS ORDERED: fentaNYL 100 MCG/2 ML INJECTION As Ordered ONE (07:03)
[2021-07-03] MEDS ORDERED: propofoL 200 MG/20 ML VIAL As Ordered ONE (07:03)
[2021-07-03] MEDS ORDERED: LIDOCAINE 2% 100MG/5ML SDV (FOR ANES.) As Ordered ONE (07:03)
[2021-07-03 08:05] VITALS: BP 124/79
== END 2021-07-03 08:11 | disposition home or self-care (01) ==
LOC: M OPP 06:50
PROVIDERS: ATTEND Internal Medicine Gastroenterology
DX: K22.89 Other specified disease of esophagus (principal); K29.70 Gastritis, unspecified, without bleeding; R13.10 Dysphagia, unspecified; R12 Heartburn; Z88.1 Allergy status to other antibiotic agents; Z88.2 Allergy status to sulfonamides; Z91.040 Latex allergy status
CPT/HCPCS: 43239; 88305; J3010

== ENCOUNTER → 2021-10-05 | Outpatient (CLI) | payer OTHER ==
[~2021-10-05] MED LIST changes: +CHOL4POW14 PO; -CHOL4POW3 PO; +FAMO20TA5 PO; +MAGN1TAB26 PO; -NS 1,000 ML IV ONE; +SLOWTAB2 PO
== END ==
LOC: M LABSMTC 10:30
PROVIDERS: ATTEND Anesthesiology
DX: Z01.812 Encounter for preprocedural laboratory examination (principal)

== ENCOUNTER 2021-10-10 08:48 | Day surgery (SDC) | payer OTHER ==
[~2021-10-10] VITALS: Ht 165.1 cm; Wt 89.8 kg
[~2021-10-10 08:48] MED LIST changes: +CHOL378P3 PO; -CHOL4POW14 PO; +NS 1,000 ML IV ONE
[2021-10-10] MEDS ORDERED: fentaNYL 100 MCG/2 ML INJECTION As Ordered ONE (10:05)
[2021-10-10] MEDS ORDERED: LIDOCAINE 2% INJ 100 MG/5 ML SYRINGE As Ordered ONE (10:05)
[2021-10-10] MEDS ORDERED: propofoL 200 MG/20 ML VIAL As Ordered ONE ×2 (10:06→10:25)
[2021-10-10 11:01] VITALS: BP 125/74
== END 2021-10-10 11:05 | disposition home or self-care (01) ==
LOC: M OPP 08:48
PROVIDERS: ATTEND Internal Medicine Gastroenterology
DX: K22.2 Esophageal obstruction (principal); K22.89 Other specified disease of esophagus; K44.9 Diaphragmatic hernia without obstruction or gangrene; R13.10 Dysphagia, unspecified; Z79.51 Long term (current) use of inhaled steroids; Z79.899 Other long term (current) drug therapy; Z91.040 Latex allergy status; F17.210 Nicotine dependence, cigarettes, uncomplicated
CPT/HCPCS: 43239; 43249; 88305; J3010

== ENCOUNTER → 2021-10-31 | Outpatient (CLI) | payer OTHER ==
[~2021-10-31] MED LIST changes: -NS 1,000 ML IV ONE
== END ==
LOC: M RAD 06:39
PROVIDERS: ATTEND Internal Medicine Gastroenterology
DX: K70.0 Alcoholic fatty liver (principal)

== ENCOUNTER → 2021-11-09 | Outpatient (CLI) | payer OTHER | LOC: M LABSMTC 10:35 | PROVIDERS: ATTEND Internal Medicine Gastroenterology | DX: Z20.822 Contact with and (suspected) exposure to COVID-19 (principal) ==

== ENCOUNTER → 2021-12-18 | Outpatient (CLI) | payer OTHER ==
[2021-12-19 13:23] LABS: ALBUMIN 3.1 GM/DL (3.2-5.2); ALT/SGPT 49 U/L (12-78); BILIRUBIN,TOTAL 0.2 MG/DL (0.2-1.0); BLOOD UREA NITROGEN 4 MG/DL (7-18); CALCIUM LEVEL 9.3 MG/DL (8.5-10.1); CARBON DIOXIDE LEVEL 29 MEQ/L (21-32); CHLORIDE LEVEL 103 MEQ/L (98-107); CREATININE FOR GFR 0.64 MG/DL (0.55-1.30); GLOMERULAR FILTRATION RATE > 60.0 (>58); GLUCOSE, FASTING 98 MG/DL (70-100); MAGNESIUM LEVEL 1.4 MG/DL (1.8-2.4); POTASSIUM SERUM 5.4 MEQ/L (3.5-5.1); SODIUM LEVEL 135 MEQ/L (136-145); TOTAL PROTEIN 6.9 GM/DL (6.4-8.2)
== END ==
LOC: M ADAMS 15:45
PROVIDERS: ATTEND Family Medicine
DX: E83.42 Hypomagnesemia (principal)

== ENCOUNTER → 2021-12-27 | Outpatient (CLI) | payer OTHER ==
[2021-12-27 16:26] LABS: BLOOD UREA NITROGEN 5 MG/DL (7-18); CALCIUM LEVEL 8.5 MG/DL (8.5-10.1); CARBON DIOXIDE LEVEL 26 MEQ/L (21-32); CHLORIDE LEVEL 104 MEQ/L (98-107); GLOMERULAR FILTRATION RATE > 60.0 (>58); GLUCOSE, FASTING 108 MG/DL (70-100); MAGNESIUM LEVEL 1.4 MG/DL (1.8-2.4); POTASSIUM SERUM 3.5 MEQ/L (3.5-5.1); SODIUM LEVEL 136 MEQ/L (136-145)
[2021-12-29 10:00] LABS: ALBUMIN 2.9 GM/DL (3.2-5.2); ALT/SGPT 34 U/L (12-78); BILIRUBIN,DIRECT 0.1 MG/DL (0.0-0.2); BILIRUBIN,TOTAL 0.3 MG/DL (0.2-1.0); TOTAL PROTEIN 6.8 GM/DL (6.4-8.2)
== END ==
LOC: M LAB 15:17
PROVIDERS: ATTEND Family Medicine
DX: I10 Essential (primary) hypertension (principal)

== ENCOUNTER → 2022-01-12 | Outpatient (REF) | payer OTHER | LOC: M LAB REF 16:07 | PROVIDERS: ATTEND Physician Assistant | DX: Z20.828 Contact with and (suspected) exposure to other viral communicable diseases (principal); J06.9 Acute upper respiratory infection, unspecified ==

== ENCOUNTER 2022-04-20 15:43 | Outpatient (CLI) | payer OTHER ==
[~2022-04-20] VITALS: Ht 165.1 cm; Wt 89.0 kg
[2022-04-20 15:45] VITALS: BP 126/79
[2022-04-20 17:00] VITALS: BP 122/56
[2022-04-20] MEDS ORDERED: MAG SULF 1GM/100ML (MAG RUN) SINGLE DOSE IV ONE ×2 (17:00)
== END 2022-04-20 17:00 | disposition home or self-care (01) ==
LOC: M INFU 15:43
PROVIDERS: ATTEND Family Medicine
DX: E83.42 Hypomagnesemia (principal); Z88.2 Allergy status to sulfonamides

== ENCOUNTER → 2022-07-17 | Outpatient (CLI) | payer OTHER ==
[2022-07-17 09:55] LABS: BASO # 0.1 10^3/uL (0.0-0.2); BASO % 0.8 % (0.0-1.0); EOS # 0.1 10^3/uL (0.0-0.5); EOS % 1.1 % (0.0-3.0); HEMATOCRIT 40.3 % (36.0-47.0); HEMOGLOBIN 11.9 g/dl (12.0-15.5); LYMPH # 2.6 10^3/uL (1.5-5.0); LYMPH % 34.8 % (24.0-44.0); MEAN CORPUSCULAR HEMOGLOBIN 22.1 pg (27.0-33.0); MEAN CORPUSCULAR HGB CONC 29.5 g/dl (32.0-36.5); MEAN CORPUSCULAR VOLUME 74.8 fl (80.0-96.0); MONO # 0.5 10^3/uL (0.0-0.8); MONO % 6.7 % (2.0-8.0); NEUTROPHILS # 4.1 10^3/uL (1.5-8.5); NEUTROPHILS % 56.3 % (36.0-66.0); PLATELET COUNT, AUTOMATED 290 10^3/uL (150-450); RED BLOOD COUNT 5.39 10^6/uL (4.00-5.40); WHITE BLOOD COUNT 7.3 10^3/uL (4.0-10.0)
[2022-07-17 10:24] LABS: ALBUMIN 3.3 G/DL (3.2-5.2); ALKALINE PHOSPHATASE 94 U/L (46-116); ALT/SGPT 143 U/L (7.0-40); AST/SGOT 207 U/L (<34); BILIRUBIN,DIRECT 0.2 MG/DL (<0.4); BILIRUBIN,TOTAL 0.3 MG/DL (0.3-1.2); BLOOD UREA NITROGEN 6 MG/DL (9-23); CREATININE FOR GFR 0.65 MG/DL (0.55-1.30); GLOMERULAR FILTRATION RATE > 60.0 (>58); IRON (FE) 21 UG/DL (50-170); PERCENT SATURATION 4.2 % (13.2-45.0); TOTAL IRON BINDING CAPACITY 499 UG/DL (250-425); TOTAL PROTEIN 7.3 G/DL (5.7-8.2)
[2022-07-22 14:09] LABS: IGASUB2 330.3 mg/dL (73.2-301.2); IGASUB3 59.4 mg/dL (13.4-97.9); IgA SERUM (part of Subclasses) 403 mg/dL (87-352); TISSUE TRANSGLUTAMINASE IgA <2 U/mL (0-3)
== END ==
LOC: M LAB 08:47
PROVIDERS: ATTEND Internal Medicine Gastroenterology
DX: R19.7 Diarrhea, unspecified (principal)

== ENCOUNTER → 2022-09-03 | Outpatient (REF) | payer OTHER | LOC: M LAB REF 22:21 | PROVIDERS: ATTEND Physician Assistant | DX: J02.9 Acute pharyngitis, unspecified (principal) ==

== ENCOUNTER → 2022-11-04 | Outpatient (REF) | payer OTHER | LOC: M LAB REF 16:12 | PROVIDERS: ATTEND Nurse Practitioner Family | DX: N76.4 Abscess of vulva (principal) ==

== ENCOUNTER → 2022-12-31 | Outpatient (REF) | payer OTHER | LOC: M LAB REF 16:12 | PROVIDERS: ATTEND Physician Assistant | DX: J02.9 Acute pharyngitis, unspecified (principal) ==

== ENCOUNTER → 2023-01-18 | Outpatient (CLI) | payer OTHER | LOC: M RAD 16:56 | PROVIDERS: ATTEND Family Medicine | DX: R05.9 Cough, unspecified (principal) ==

== ENCOUNTER → 2023-03-10 | Outpatient (REF) | payer OTHER | LOC: M SFHCWAGY 10:03 | PROVIDERS: ATTEND Nurse Practitioner Family | DX: N73.9 Female pelvic inflammatory disease, unspecified (principal) ==

== ENCOUNTER → 2023-06-08 | Outpatient (CLI) | payer OTHER ==
[2023-06-08 16:28] LABS: BASO # 0.1 10^3/uL (0.0-0.2); BASO % 0.6 % (0.0-1.0); EOS % 0.4 % (0.0-3.0); HEMATOCRIT 35.1 % (36.0-47.0); HEMOGLOBIN 10.7 g/dl (12.0-15.5); LYMPH # 3.3 10^3/uL (1.5-5.0); LYMPH % 34.3 % (24.0-44.0); MEAN CORPUSCULAR HEMOGLOBIN 22.1 pg (27.0-33.0); MEAN CORPUSCULAR HGB CONC 30.5 g/dl (32.0-36.5); MEAN CORPUSCULAR VOLUME 72.4 fl (80.0-96.0); MONO # 0.6 10^3/uL (0.0-0.8); MONO % 6.2 % (2.0-8.0); NEUTROPHILS # 5.6 10^3/uL (1.5-8.5); NEUTROPHILS % 58.3 % (36.0-66.0); PLATELET COUNT, AUTOMATED 272 10^3/uL (150-450); RED BLOOD COUNT 4.85 10^6/uL (4.00-5.40); WHITE BLOOD COUNT 9.6 10^3/uL (4.0-10.0)
[2023-06-08 16:48] LABS: ALBUMIN 2.9 G/DL (3.2-5.2); ALKALINE PHOSPHATASE 93 U/L (46-116); ALT/SGPT 27 U/L (7.0-40); AST/SGOT 45 U/L (<34); BILIRUBIN,TOTAL 0.3 MG/DL (0.3-1.2); BLOOD UREA NITROGEN 6 MG/DL (9-23); CALCIUM LEVEL 9.1 MG/DL (8.5-10.1); CARBON DIOXIDE LEVEL 28 MMOL/L (20-31); CHLORIDE LEVEL 105 MMOL/L (98-107); CREATININE FOR GFR 0.59 MG/DL (0.55-1.30); GLOMERULAR FILTRATION RATE > 60.0 (>58); GLUCOSE, FASTING 115 MG/DL (60-100); MAGNESIUM LEVEL 1.5 MG/DL (1.8-2.4); SODIUM LEVEL 137 MMOL/L (136-145); TOTAL PROTEIN 6.8 G/DL (5.7-8.2)
[2023-06-08 16:51] LABS: THYROID STIMULATING HORMONE 0.268 uIU/ML (0.55-4.78)
[2023-06-08 16:54] LABS: HEMOGLOBIN A1c 6.4 % (4.0-6.0)
== END ==
LOC: M LAB 16:01
PROVIDERS: ATTEND Family Medicine
DX: E11.9 Type 2 diabetes mellitus without complications (principal)

== ENCOUNTER → 2023-07-02 | Outpatient (CLI) | payer OTHER | LOC: M RAD 09:36 | PROVIDERS: ATTEND Family Medicine | DX: K76.0 Fatty (change of) liver, not elsewhere classified (principal) ==

== ENCOUNTER → 2023-09-10 | Outpatient (REF) | payer OTHER | LOC: M LAB REF 16:09 | PROVIDERS: ATTEND Physician Assistant Medical | DX: J02.9 Acute pharyngitis, unspecified (principal) ==

== ENCOUNTER → 2023-10-26 | Outpatient (CLI) | payer OTHER ==
[~2023-10-26] MED LIST changes: +E-Z-GAS II EFFERVESCENT PACKET (SODIUM BICARB./CITRIC ACID/SIMETHICONE) As Ordered ONE; +E-Z-HD 98% w/w 340GM SUSP BTL As Ordered ONE; +E-Z-PAQUE 96% w/w SUSP 176GM BTL As Ordered ONE
== END ==
LOC: M RAD 09:42
PROVIDERS: ATTEND Family Medicine
DX: K21.9 Gastro-esophageal reflux disease without esophagitis (principal); R10.9 Unspecified abdominal pain

== ENCOUNTER → 2023-12-08 | Outpatient (CLI) | payer OTHER ==
[~2023-12-08] MED LIST changes: -E-Z-GAS II EFFERVESCENT PACKET (SODIUM BICARB./CITRIC ACID/SIMETHICONE) As Ordered ONE; -E-Z-HD 98% w/w 340GM SUSP BTL As Ordered ONE; -E-Z-PAQUE 96% w/w SUSP 176GM BTL As Ordered ONE
== END ==
LOC: M WHC 09:03
PROVIDERS: ATTEND Obstetrics & Gynecology
DX: Z12.31 Encounter for screening mammogram for malignant neoplasm of breast (principal)

== ENCOUNTER → 2024-01-15 | Outpatient (CLI) | payer OTHER ==
[2024-01-15 14:58] LABS: BASO % 0.3 % (0.0-1.0); EOS # 0.1 10^3/uL (0.0-0.5); EOS % 0.5 % (0.0-3.0); HEMATOCRIT 34.9 % (36.0-47.0); HEMOGLOBIN 10.5 g/dl (12.0-15.5); LYMPH # 4.4 10^3/uL (1.5-5.0); LYMPH % 29.8 % (24.0-44.0); MEAN CORPUSCULAR HEMOGLOBIN 21.9 pg (27.0-33.0); MEAN CORPUSCULAR HGB CONC 30.1 g/dl (32.0-36.5); MEAN CORPUSCULAR VOLUME 72.9 fl (80.0-96.0); MONO # 0.8 10^3/uL (0.0-0.8); MONO % 5.6 % (2.0-8.0); NEUTROPHILS # 9.4 10^3/uL (1.5-8.5); NEUTROPHILS % 63.4 % (36.0-66.0); PLATELET COUNT, AUTOMATED 284 10^3/uL (150-450); RED BLOOD COUNT 4.79 10^6/uL (4.00-5.40); WHITE BLOOD COUNT 14.8 10^3/uL (4.0-10.0)
[2024-01-15 15:18] LABS: HEMOGLOBIN A1c 6.9 % (4.0-6.0)
[2024-01-15 15:24] LABS: ALKALINE PHOSPHATASE 67 U/L (46-116); ALT/SGPT 82 U/L (7.0-40); AST/SGOT 97 U/L (<34); BILIRUBIN,TOTAL 0.6 MG/DL (0.3-1.2); BLOOD UREA NITROGEN 7 MG/DL (9-23); CALCIUM LEVEL 9.6 MG/DL (8.5-10.1); CARBON DIOXIDE LEVEL 28 MMOL/L (20-31); CHLORIDE LEVEL 106 MMOL/L (98-107); CHOLESTEROL LEVEL 183 MG/DL (<200); CHOLESTEROL RISK RATIO 2.78 (<5); CREATININE FOR GFR 0.58 MG/DL (0.55-1.30); GLOMERULAR FILTRATION RATE > 60.0 (>58); GLUCOSE, FASTING 103 MG/DL (60-100); HDL CHOLESTEROL 65.8 MG/DL (>40); LDL CHOLESTEROL 91.4 MG/DL (<100); MAGNESIUM LEVEL 1.4 MG/DL (1.8-2.4); NON-HDL-C 117.2 MG/DL; POTASSIUM SERUM 4.1 MMOL/L (3.5-5.1); SODIUM LEVEL 138 MMOL/L (136-145); TOTAL PROTEIN 6.6 G/DL (5.7-8.2); TRIGLYCERIDES LEVEL 129 MG/DL (<150)
[2024-01-15 15:26] LABS: FREE T4 1.42 NG/DL (0.89-1.76); THYROID STIMULATING HORMONE 2.237 uIU/ML (0.55-4.78)
== END ==
LOC: M LAB 14:29
PROVIDERS: ATTEND Family Medicine
DX: K21.9 Gastro-esophageal reflux disease without esophagitis (principal); E78.5 Hyperlipidemia, unspecified; E11.9 Type 2 diabetes mellitus without complications; E83.42 Hypomagnesemia; E03.9 Hypothyroidism, unspecified

== ENCOUNTER → 2024-01-20 | Outpatient (REF) | payer OTHER | LOC: M LAB REF 18:17 | PROVIDERS: ATTEND Physician Assistant | DX: J02.9 Acute pharyngitis, unspecified (principal) ==

== ENCOUNTER 2024-02-15 15:57 | Outpatient (CLI) | payer OTHER ==
[~2024-02-15] VITALS: Ht 166.4 cm; Wt 84.1 kg
[~2024-02-15 15:57] MED LIST changes: +MAG SULF 1GM/100ML (MAG RUN) IV SCH
[2024-02-15] MEDS: MAG SULF 1GM/100ML (MAG RUN) IV SCH (16:11)
[2024-02-15 16:15] VITALS: BP 145/78; O2SAT 100
[2024-02-15 18:12] VITALS: BP 134/73; O2SAT 98
== END 2024-02-15 18:20 ==
LOC: M INFU 15:57
PROVIDERS: ATTEND Family Medicine
DX: E83.42 Hypomagnesemia (principal); Z88.2 Allergy status to sulfonamides; Z91.040 Latex allergy status
CPT/HCPCS: 96365; 96366; J3475

== ENCOUNTER → 2024-02-18 | Outpatient (CLI) | payer OTHER ==
[~2024-02-18] MED LIST changes: -MAG SULF 1GM/100ML (MAG RUN) IV SCH
== END ==
LOC: M RAD 15:37
PROVIDERS: ATTEND Family Medicine
DX: R06.02 Shortness of breath (principal)

== ENCOUNTER 2024-02-22 15:30 | Outpatient (CLI) | payer OTHER ==
[2024-02-22 15:35] VITALS: BP 113/53; O2SAT 98
[2024-02-22] MEDS: MAG SULF 1GM/100ML (MAG RUN) IV SCH (15:40)
[2024-02-22 17:44] VITALS: BP 113/59; O2SAT 99
== END 2024-02-22 17:45 ==
LOC: M INFU 15:30
PROVIDERS: ATTEND Family Medicine
DX: E83.42 Hypomagnesemia (principal); Z88.2 Allergy status to sulfonamides; Z91.040 Latex allergy status
CPT/HCPCS: 96365; 96366; J3475

== ENCOUNTER → 2024-03-27 | Outpatient (CLI) | payer OTHER ==
[2024-03-27 17:44] LABS: BASO # 0.1 10^3/uL (0.0-0.2); BASO % 0.7 % (0.0-1.0); EOS % 0.4 % (0.0-3.0); HEMATOCRIT 34.9 % (36.0-47.0); HEMOGLOBIN 10.1 g/dl (12.0-15.5); LYMPH # 2.9 10^3/uL (1.5-5.0); MEAN CORPUSCULAR HEMOGLOBIN 20.8 pg (27.0-33.0); MEAN CORPUSCULAR HGB CONC 28.9 g/dl (32.0-36.5); MONO # 0.8 10^3/uL (0.0-0.8); MONO % 7.4 % (2.0-8.0); NEUTROPHILS # 6.5 10^3/uL (1.5-8.5); NEUTROPHILS % 63.2 % (36.0-66.0); PLATELET COUNT, AUTOMATED 293 10^3/uL (150-450); RED BLOOD COUNT 4.85 10^6/uL (4.00-5.40); WHITE BLOOD COUNT 10.4 10^3/uL (4.0-10.0)
[2024-03-27 18:06] LABS: ALKALINE PHOSPHATASE 94 U/L (35-104); ALT/SGPT 21 U/L (7.0-40); AST/SGOT 37 U/L (<34); BILIRUBIN,TOTAL 0.3 MG/DL (0.3-1.2); BLOOD UREA NITROGEN < 5 MG/DL (9-23); CALCIUM LEVEL 8.6 MG/DL (8.5-10.1); CARBON DIOXIDE LEVEL 27 MMOL/L (20-31); CHLORIDE LEVEL 103 MMOL/L (98-107); GLOMERULAR FILTRATION RATE > 60.0 (>58); GLUCOSE, FASTING 112 MG/DL (60-100); POTASSIUM SERUM 3.6 MMOL/L (3.5-5.1); SODIUM LEVEL 138 MMOL/L (136-145); TOTAL PROTEIN 7.3 G/DL (5.7-8.2)
[2024-03-27 19:45] LABS: HEMOGLOBIN A1c 6.4 % (4.0-6.0)
== END ==
LOC: M LAB 16:07
PROVIDERS: ATTEND Family Medicine
DX: D64.9 Anemia, unspecified (principal)

== ENCOUNTER 2024-04-11 13:34 | Outpatient (CLI) | payer OTHER ==
[2024-04-11] MEDS: MAG SULF 1GM/100ML (MAG RUN) IV SCH (14:00)
[2024-04-11 16:10] VITALS: BP 139/74; O2SAT 97
== END 2024-04-11 16:10 ==
LOC: M INFU 13:34
PROVIDERS: ATTEND Family Medicine
DX: E83.42 Hypomagnesemia (principal); Z88.2 Allergy status to sulfonamides; Z91.040 Latex allergy status
CPT/HCPCS: 96365; 96366; J3475

== ENCOUNTER 2024-04-18 15:31 | Outpatient (CLI) | payer OTHER ==
[~2024-04-18] VITALS: Ht 165.1 cm; Wt 84.5 kg
[2024-04-18] MEDS: MAG SULF 1GM/100ML (MAG RUN) IV SCH (15:56)
[2024-04-18 16:11] VITALS: BP 123/60; O2SAT 100
[2024-04-18 18:03] VITALS: BP 123/62; O2SAT 97
== END 2024-04-18 18:04 ==
LOC: M INFU 15:31
PROVIDERS: ATTEND Family Medicine
DX: E83.42 Hypomagnesemia (principal); Z88.2 Allergy status to sulfonamides; Z91.040 Latex allergy status
CPT/HCPCS: 96365; J3475

== ENCOUNTER → 2024-05-03 | Outpatient (REF) | payer OTHER | LOC: M LAB REF 12:32 | PROVIDERS: ATTEND Nurse Practitioner Family | DX: J02.9 Acute pharyngitis, unspecified (principal) ==

== ENCOUNTER → 2024-05-14 | Outpatient (CLI) | payer OTHER ==
[2024-05-14 13:08] LABS: BASO # 0.1 10^3/uL (0.0-0.2); BASO % 0.7 % (0.0-1.0); EOS # 0.1 10^3/uL (0.0-0.5); EOS % 0.7 % (0.0-3.0); HEMATOCRIT 35.5 % (36.0-47.0); HEMOGLOBIN 10.4 g/dl (12.0-15.5); LYMPH # 3.1 10^3/uL (1.5-5.0); LYMPH % 32.7 % (24.0-44.0); MEAN CORPUSCULAR HEMOGLOBIN 19.9 pg (27.0-33.0); MEAN CORPUSCULAR HGB CONC 29.3 g/dl (32.0-36.5); MEAN CORPUSCULAR VOLUME 67.9 fl (80.0-96.0); MONO # 0.5 10^3/uL (0.0-0.8); MONO % 5.8 % (2.0-8.0); NEUTROPHILS # 5.6 10^3/uL (1.5-8.5); NEUTROPHILS % 59.9 % (36.0-66.0); PLATELET COUNT, AUTOMATED 343 10^3/uL (150-450); RED BLOOD COUNT 5.23 10^6/uL (4.00-5.40); WHITE BLOOD COUNT 9.4 10^3/uL (4.0-10.0)
[2024-05-14 13:43] LABS: THYROID STIMULATING HORMONE 0.812 uIU/ML (0.55-4.78)
[2024-05-14 13:50] LABS: ALBUMIN 3.2 G/DL (3.2-5.2); ALKALINE PHOSPHATASE 85 U/L (35-104); ALT/SGPT 40 U/L (7.0-40); AST/SGOT 59 U/L (<34); BILIRUBIN,TOTAL 0.3 MG/DL (0.3-1.2); BLOOD UREA NITROGEN < 5 MG/DL (9-23); CARBON DIOXIDE LEVEL 25 MMOL/L (20-31); CHLORIDE LEVEL 106 MMOL/L (98-107); CREATININE FOR GFR 0.55 MG/DL (0.55-1.30); GLOMERULAR FILTRATION RATE > 60.0 (>58); GLUCOSE, FASTING 149 MG/DL (60-100); POTASSIUM SERUM 4.1 MMOL/L (3.5-5.1); SODIUM LEVEL 140 MMOL/L (136-145); TOTAL PROTEIN 7.6 G/DL (5.7-8.2)
[2024-05-14 14:03] LABS: HEMOGLOBIN A1c 6.5 % (4.0-6.0)
== END ==
LOC: M LAB 12:33
PROVIDERS: ATTEND Family Medicine
DX: E83.42 Hypomagnesemia (principal); I10 Essential (primary) hypertension; E03.9 Hypothyroidism, unspecified; E55.9 Vitamin D deficiency, unspecified

== ENCOUNTER → 2024-06-18 | Outpatient (CLI) | payer OTHER ==
[2024-06-18 12:49] LABS: BASO # 0.1 10^3/uL (0.0-0.2); BASO % 0.8 % (0.0-1.0); EOS # 0.1 10^3/uL (0.0-0.5); EOS % 0.7 % (0.0-3.0); HEMATOCRIT 34.2 % (36.0-47.0); HEMOGLOBIN 9.9 g/dl (12.0-15.5); LYMPH # 2.7 10^3/uL (1.5-5.0); LYMPH % 29.3 % (24.0-44.0); MEAN CORPUSCULAR HEMOGLOBIN 19.9 pg (27.0-33.0); MEAN CORPUSCULAR HGB CONC 28.9 g/dl (32.0-36.5); MEAN CORPUSCULAR VOLUME 68.8 fl (80.0-96.0); MONO # 0.5 10^3/uL (0.0-0.8); MONO % 4.9 % (2.0-8.0); NEUTROPHILS # 5.9 10^3/uL (1.5-8.5); NEUTROPHILS % 64.1 % (36.0-66.0); PLATELET COUNT, AUTOMATED 318 10^3/uL (150-450); RED BLOOD COUNT 4.97 10^6/uL (4.00-5.40); WHITE BLOOD COUNT 9.2 10^3/uL (4.0-10.0)
[2024-06-18 13:18] LABS: ALBUMIN 3.2 G/DL (3.2-5.2); ALKALINE PHOSPHATASE 83 U/L (35-104); ALT/SGPT 23 U/L (7.0-40); AST/SGOT 31 U/L (<34); BILIRUBIN,TOTAL 0.3 MG/DL (0.3-1.2); BLOOD UREA NITROGEN < 5 MG/DL (9-23); CARBON DIOXIDE LEVEL 26 MMOL/L (20-31); CHLORIDE LEVEL 103 MMOL/L (98-107); GLOMERULAR FILTRATION RATE > 60.0 (>58); GLUCOSE, FASTING 150 MG/DL (60-100); MAGNESIUM LEVEL 1.3 MG/DL (1.8-2.4); POTASSIUM SERUM 4.2 MMOL/L (3.5-5.1); SODIUM LEVEL 137 MMOL/L (136-145); TOTAL PROTEIN 7.3 G/DL (5.7-8.2)
== END ==
LOC: M LAB 12:14
PROVIDERS: ATTEND Family Medicine
DX: E78.5 Hyperlipidemia, unspecified (principal)

== ENCOUNTER → 2024-06-30 | Outpatient (CLI) | payer OTHER ==
[~2024-06-30] VITALS: Ht 165.1 cm; Wt 85.0 kg
[2024-06-30 15:35] VITALS: BP 121/73; O2SAT 95
[2024-06-30] MEDS: MAG SULF 1GM/100ML (MAG RUN) X1 IV ONE (15:55)
[2024-06-30 16:58] VITALS: BP 115/55; O2SAT 97
== END ==
LOC: M INFU 15:26
PROVIDERS: ATTEND Family Medicine
DX: E83.42 Hypomagnesemia (principal); Z88.2 Allergy status to sulfonamides; Z91.040 Latex allergy status
CPT/HCPCS: 96365; J3475

== ENCOUNTER → 2025-03-02 | Outpatient (REF) | payer OTHER ==
[~2025-03-02] MED LIST changes: +CETI10CH PO; +ERGO500029 PO; +FERR325T3 PO; +MAGN400T2 PO; -PANT40TA29; +PANT40TA29 PO; +SLOW1TAB3; +SLOW1TAB3 PO; -SLOWTAB2; -SLOWTAB2 PO; +SYNT88TA2 PO
== END ==
LOC: M LAB REF 17:21
PROVIDERS: ATTEND Physician Assistant
DX: J02.9 Acute pharyngitis, unspecified (principal)

== ENCOUNTER → 2025-04-03 | Outpatient (CLI) | payer OTHER | LOC: M WHC 10:17 | PROVIDERS: ATTEND Obstetrics & Gynecology | DX: Z12.31 Encounter for screening mammogram for malignant neoplasm of breast (principal); R92.313 Mammographic fatty tissue density, bilateral breasts ==

== ENCOUNTER → 2025-04-03 | Outpatient (REF) | payer OTHER ==
[2025-04-06 06:22] LABS: HPV APTIMA Not Detected (Not Detected)
== END ==
LOC: M SFHCWAGY 13:18
PROVIDERS: ATTEND Obstetrics & Gynecology
DX: Z12.4 Encounter for screening for malignant neoplasm of cervix (principal); R87.610 Atypical squamous cells of undetermined significance on cytologic smear of cervix (ASC-US)
CPT/HCPCS: 87624; G0123